=== PATIENT | male | born 1935 | race Caucasian/White ===

== ENCOUNTER 2018-03-13 13:47 | Inpatient (IN) | payer MEDICARE, OTHER ==
[~2018-03-13] VITALS: Ht 162.6 cm; Wt 78.2 kg
[~2018-03-13 13:47] MED LIST: ACET325T33 PO; ALLO300T2 PO; ASC500 PO; ASPI-535 PO; ASPI325T29 PO; ATOR20TA38 PO; CARV12.579 PO; CARV12.598 PO; CLOP75TA27 PO; DOCU-144 PO; FURO-110 PO; FURO40TA4 PO; LANT3I SC; LISI-523 PO; LOSA25TA2 PO; OMEG-157 PO; POTA10TA15 PO; ROSU10TA55 PO; TAMS-14 PO; TAMS0.4C2 PO; ZINC50TA51 PO; ZOLP5TAB PO
[2018-03-13 16:57] VITALS: Ht 162.6 cm; Wt 78.2 kg
[2018-03-13 17:33] VITALS: BP 153/67; PULSE 70; RESP 18
[2018-03-13] MEDS ORDERED: ONDANSETRON 4 MG INJ IV PRN (19:00)
[2018-03-13] MEDS ORDERED: ACETAMINOPHEN 325 MG TAB PO PRN (19:00)
[2018-03-13 20:23] VITALS: BP 147/54; PULSE 64; RESP 20
[2018-03-13] MEDS: INSULIN ASPART [NOVOLOG] 3 ML PEN SC SCH (21:00)
[2018-03-13] MEDS: CEFTRIAXONE 1 GM/50 ML (PMX) 50 ML IVPB SCH (22:07)
[2018-03-13] MEDS: DEXTROSE 5%-0.45% NACL 1,000 ML IV SCH (22:07)
[2018-03-13] MEDS: metroNIDAZOLE 500 MG/NS (PMX) 100 ML IVPB SCH (23:19)
--- NOTE | 2018-03-13 23:34 | HP ---
Date/Time of Note Date/Time of Note DATE: 03/13/18 TIME: 23:28 Assessment/Plan VTE Prophylaxis Risk [place] [facility] [place] risk: 5 SCD applied (from Ns): Yes SCD contraindicated: other Pharmacological prophylaxis: other Lines/Catheters IV Catheter Type (from [facility]): Saline Lock Assessment/Plan Hospital Course 1. abd pain 2. diverticulites 3. hx cancer on chemo gi 4. History of hypertension. 5. History of dyslipidemia. 6. History of coronary artery bypass graft. 7. History of aortic stenosis. 8. History of mitral valve repair. 9. Osteoarthritis. 10. Diabetes mellitus. 11. BPH. plan iv fluid and antibiotic Results 24hrs Laboratory Tests Test 03/13/18 21:43 Bedside Glucose 84 HPI/ROS Admit Date/Time Admit Date/Time Mar 13, 2018 at 15:43 Hx of Present Illness tranfered from [facility] w abd pain ROS Subjective hx not possible: other Constitutional: no complaints; No diaphoresis ENT: no complaints Respiratory: no complaints Cardiovascular: no complaints Gastrointestinal: pain (+) Genitourinary: no complaints Musculoskeletal: no complaints Skin: no complaints Neurologic: no complaints Endocrine: no complaints Lymphatic: no complaints PMH/Family/Social Past Medical History Medical History: cancer, coronary artery disease, diverticulitis, high chol esterol, hypertension, other Medications Current Medications Dextrose/Sodium Chloride 1,000 ml @ 75 mls/hr [id number] IV Last administered on 03/13/18at 22:07; Admin Dose 75 MLS/HR; Start 03/13/18 at 19:00 Pantoprazole (Protonix Iv) 40 mg DAILY@06 IV ; Start 03/14/18 at 06:00 Ceftriaxone Sodium 50 ml @ 100 mls/hr Q24H IVPB Last administered on 03/13/18at 22:07; Admin Dose 100 MLS/HR; Start 03/13/18 at 19:30 Ondansetron HCl (Zofran Inj) 4 mg Q6H PRN IV NAUSEA AND/OR VOMITING; Start 03/13/18 at 19:00 Acetaminophen (Tylenol Tab) 650 mg Q6H PRN PO MILD PAIN(1-3)OR ELEVATED TEMP; Start 03/13/18 at 19:00 Metronidazole 100 ml @ 100 mls/hr Q8 IVPB Last administered on 03/13/18at 23:19; Admin Dose 100 MLS/HR; Start 03/13/18 at 22:00 Diagnostic Test (Pha) (Accu-Chek) 1 02 XX ; Start 03/14/18 at 02:00 Insulin Aspart (Novolog Insulin Pen) NOVOLOG *MILD* ALGORI... Q4 SC ; Start 03/13/18 at 21:00 Coded Allergies: No Known Allergies (Verified Allergy, Unknown, 05/20/15) Uncoded Allergies: NKDA (Allergy, Unknown, 09/24/13) Family History Significant Family History: no pertinent family hx Social History Alcohol Use: none Smoking Status: Never smoker Exam/Review of Systems Vital Signs Vitals Vital Signs Date Temp Pulse Resp B/P (MAP) Pulse Ox O2 O2 Flow FiO2 Time Delivery Rate 03/13/18 98.4 64 20 147/54 99 Room Air 20:23 (85) Exam Constitutional: alert, oriented Head: normocephalic Eyes: nl conjunctiva, EOMI ENMT: nl external ears & nose Neck: supple Respiratory: clear to auscultation Cardiovascular: regular rate and rhythm Gastrointestinal: soft, bowel sounds (_) Genitourinary - Male: No CVA tenderness Musculoskeletal: nl extremities to inspection Extremities: No edema Neurological: CHOKER HOOKER II-XII intact, nl mental status SMITH MATSON MD Mar 13, 2018 23:34
[2018-03-14] MEDS: INSULIN ASPART [NOVOLOG] 3 ML PEN SC SCH ×6 (01:00→21:00)
[2018-03-14] MEDS: ACCU-CHEK XX SCH (02:00)
[2018-03-14 02:11] VITALS: BP 165/71; PULSE 71; RESP 18
[2018-03-14] MEDS: metroNIDAZOLE 500 MG/NS (PMX) 100 ML IVPB SCH ×3 (06:08→21:53)
[2018-03-14] MEDS: PANTOPRAZOLE 40 MG INJ IV SCH (06:08)
[2018-03-14 07:55] VITALS: BP 132/60; PULSE 63; RESP 18
[2018-03-14] MEDS: DEXTROSE 5%-0.45% NACL 1,000 ML IV SCH ×2 (08:20→17:14)
--- NOTE | 2018-03-14 14:39 | CONS ---
Date/Time of Note Date/Time of Note DATE: 03/14/18 TIME: 14:35 Assessment/Plan Assessment/Plan Hospital Course Summary Assessment and Plan: Assessment: Diverticulitis Abdominal pain 2/2 to above Colon cancer- per family dx 8 months -Currently on chemotherapy Hepatic lesion 1.1cm, worrisome for metastatic lesion on imaging DM Hypertension CAD Aortic stenosis History of MVR Osteoarthritis BPH Plan: NPO- today- if symptoms improve start clear liqui tin am- per patient she states patient only drink warm liquids IVF Pain management Continue ABX regimen Obtain records from patient oncologist- nicole GILES pending Patient seen in collaboration with Dr. Laguerre Result Diagram: 03/14/18 0444 03/14/18 0445 Results 24hrs Laboratory Tests Test 03/13/18 21:43 03/14/18 01:30 03/14/18 04:44 03/14/18 04:45 Bedside Glucose 84 92 White Blood Count 8.7 Red Blood Count 3.13 L Hemoglobin 10.0 L Hematocrit 30.8 L Mean Corpuscular 98.4 Volume Mean Corpuscular 31.9 Hemoglobin Mean Corpuscular 32.5 Hemoglobin Concent Red Cell 15.9 H Distribution Width Platelet Count 218 Mean Platelet Volume 8.7 # Immature 0.200 Granulocytes % Neutrophils % 63.6 Lymphocytes % 24.0 Monocytes % 9.3 Eosinophils % 2.3 Basophils % 0.6 Nucleated Red Blood 0.0 Cells % Immature 0.020 Granulocytes # Neutrophils # 5.5 Lymphocytes # 2.1 Monocytes # 0.8 Eosinophils # 0.2 Basophils # 0.1 Nucleated Red Blood 0.0 Cells # Sodium Level 142 Potassium Level 3.7 Chloride Level 118 H Carbon Dioxide Level 17 L Anion Gap 7 Blood Urea Nitrogen 22 H Creatinine 1.59 H Est Glomerular Filtrat Rate mL/min Glucose Level 104 Calcium Level 8.5 Total Bilirubin 0.0 L Direct Bilirubin 0.00 Indirect Bilirubin 0.0 Aspartate Amino 19 Transf (AST/SGOT) Alanine 12 L Aminotransferase (AL T/SGPT) Alkaline Phosphatase 45 Total Protein 5.7 L Albumin 2.8 L Globulin 2.90 Albumin/Globulin 0.96 Ratio Test 03/14/18 06:07 03/14/18 09:07 03/14/18 13:18 Bedside Glucose 99 103 102 CC: JEROME LAGUERRE MD ; Consultation Date/Type/Reason Admit Date/Time Mar 13, 2018 at 15:43 Date of Consultation: Mar 14, 2018 Type of Consult GI Reason for Consultation Abdominal pain Hx of Present Illness This an 82-year-old male with past medical history of hypertension, hyperlipidemia, CAD, valvular heart disease, inguinal hernia, CVA in 2016, colon cancer currently under the care of a oncologist and undergoing chemotherapy treatment. He is supposed to have chemotherapy every 2 weeks. scented to [facility] for worsening abdominal pain over the past 2- 3 days she was apparently having frequent diarrhea with poor intake. A CT abdomen/pelvis without contrast was obtained showing stable diverticulitis of the descending and sigmoid colon with no adjacent abscess or perforation, focal segment of sequential wall thickening demonstrates the distal ascending colon measuring approximately 1.9 x 1.2 cm worrisome for neoplastic process versus scarring causing partial obstructive changes and dilation of the cecum and distal ileum, small hiatal hernia, there is a 1.1 cm hyperdense lesion in the dome of the left liver is slightly larger compared to previous measurement of 0.9 worrisome for metastatic lesion, enlargement of prostate gland. Transferred to [facility] for insurance reasons. Of note patient was previously admitted at [facility] on 02/26/18 diagnosed with diverticulitis he also was noted to have a NSTEMI during that admission and he was discharged on 02/02/18. Has been consulted for further evaluation. Currently patient states he feels better less abdominal pain noted and diarrhea has improved. An order is currently placed in pending follow-up and progress notes from oncologist family is at bedside. He stated there was no plan for surgery and they are treating colon cancer currently with chemotherapy. Review of Systems: A 12 system, review was conducted and is negative except as noted in the HPI or here. Past Medical History Medical History: cancer, coronary artery disease, diverticulitis, high cholesterol, hypertension, other Medications Current Medications Dextrose/Sodium Chloride 1,000 ml @ 75 mls/hr [id number] IV Last administered on 03/13/18at 22:07; Admin Dose 75 MLS/HR; Start 03/13/18 at 19:00 Pantoprazole (Protonix Iv) 40 mg DAILY@06 IV Last administered on 03/14/18at 06:08; Admin Dose 40 MG; Start 03/14/18 at 06:00 Ceftriaxone Sodium 50 ml @ 100 mls/hr Q24H IVPB Last administered on 03/13/18at 22:07; Admin Dose 100 MLS/HR; Start 03/13/18 at 19:30 Ondansetron HCl (Zofran Inj) 4 mg Q6H PRN IV NAUSEA AND/OR VOMITING; Start 03/13/18 at 19:00 Acetaminophen (Tylenol Tab) 650 mg Q6H PRN PO MILD PAIN(1-3)OR ELEVATED TEMP; Start 03/13/18 at 19:00 Metronidazole 100 ml @ 100 mls/hr Q8 IVPB Last administered on 03/14/18at 13:20; Admin Dose 100 MLS/HR; Start 03/13/18 at 22:00 Diagnostic Test (Pha) (Accu-Chek) 1 ea 02 XX ; Start 03/14/18 at 02:00 Insulin Aspart (Novolog Insulin Pen) NOVOLOG *MILD* ALGORI... Q4 SC ; Start 03/13/18 at 21:00 Allergies: Coded Allergies: No Known Allergies (Verified Allergy, Unknown, 05/20/15) Uncoded Allergies: NKDA (Allergy, Unknown, 09/24/13) Social History Alcohol Use: none Smoking Status: Never smoker Exam/Review of Systems Vital Signs Vitals Vital Signs Date Temp Pulse Resp B/P (MAP) Pulse Ox O2 O2 Flow FiO2 Time Delivery Rate 03/14/18 98.0 63 18 132/60 99 Room Air 07:55 (84) Intake and Output 03/13/18 03/13/18 03/14/18 1414:59 22:59 06:59 IntakeIntake Total 50 ml 512 ml OutputOutput Total 1 ml BalanceBalance 50 ml 511 ml Exam PHYSICAL EXAMINATION: GENERAL: Alert & oriented x 3, in no acute distress SKIN: No lesions EYES: Pupils equal reactive to light no discharge. EARS/NOSE AND THROAT: Ears normal, nose normal, oropharynx normal NECK: Supple, no masses CHEST: Inspection within normal limits. CARDIOVASCULAR: Heart: Regular rate and rhythm RESPIRATORY: Lungs clear to auscultation GASTROINTESTINAL AND LIVER: Abdomen: Soft, lower abd pain non-distended, no hernias, no rebound tenderness, normoactive bowel sounds. Rectal: Deferred. GENITOURINARY: Male genitalia within normal limits. EXTREMITIES: No cyanosis, clubbing or edema. Medications Medications Current Medications Dextrose/Sodium Chloride 1,000 ml @ 75 mls/hr [id number] IV Last administered on 03/13/18at 22:07; Admin Dose 75 MLS/HR; Start 03/13/18 at 19:00 Pantoprazole (Protonix Iv) 40 mg DAILY@06 IV Last administered on 03/14/18at 06:08; Admin Dose 40 MG; Start 03/14/18 at 06:00 Ceftriaxone Sodium 50 ml @ 100 mls/hr Q24H IVPB Last administered on 03/13/18at 22:07; Admin Dose 100 MLS/HR; Start 03/13/18 at 19:30 Ondansetron HCl (Zofran Inj) 4 mg Q6H PRN IV NAUSEA AND/OR VOMITING; Start 03/13/18 at 19:00 Acetaminophen (Tylenol Tab) 650 mg Q6H PRN PO MILD PAIN(1-3)OR ELEVATED TEMP; Start 03/13/18 at 19:00 Metronidazole 100 ml @ 100 mls/hr Q8 IVPB Last administered on 03/14/18at 13:20; Admin Dose 100 MLS/HR; Start 03/13/18 at 22:00 Diagnostic Test (Pha) (Accu-Chek) 1 ea 02 XX ; Start 03/14/18 at 02:00 Insulin Aspart (Novolog Insulin Pen) NOVOLOG *MILD* ALGORI... Q4 SC ; Start 03/13/18 at 21:00 SILVINA XIAO Mar 14, 2018 14:39
--- NOTE | 2018-03-14 14:39 | PN ---
Date/Time of Note Date/Time of Note DATE: 03/14/18 TIME: 14:34 Assessment/Plan VTE Prophylaxis Risk score (from Ns)>0 risk: 5 SCD applied (from Ns): Yes Pharmacological prophylaxis: NA/contraindicated Pharm contraindication: low risk/ambulating Lines/Catheters IV [facility] Type (from [facility]): Peripheral IV Assessment/Plan Hospital Course 82 y/o with 1. abd pain with CT diverticulitis , partial obstruction on CT scan 2. diverticulites 3. hx cancer on chemo gi 4. History of hypertension. 5. History of dyslipidemia. 6. History of coronary artery bypass graft. 7. History of aortic stenosis. 8. History of mitral valve repair. 9. Osteoarthritis. 10. Diabetes mellitus. 11. BPH. 12 Diarrhoea ? chemo Plan - NPO - IV Fluids - iv abx with rocephin/flagyl - GI consult to determine - stool studies - Pt sees oncology at [facility] Result Diagram: 03/14/18 0444 03/14/18 0445 Results 24hrs Laboratory Tests Test 03/13/18 21:43 03/14/18 01:30 03/14/18 04:44 03/14/18 04:45 Bedside Glucose 84 92 White Blood Count 8.7 Red Blood Count 3.13 L Hemoglobin 10.0 L Hematocrit 30.8 L Mean Corpuscular 98.4 Volume Mean Corpuscular 31.9 Hemoglobin Mean Corpuscular 32.5 Hemoglobin Concent Red Cell 15.9 H Distribution Width Platelet Count 218 Mean Platelet Volume 8.7 # Immature 0.200 Granulocytes % Neutrophils % 63.6 Lymphocytes % 24.0 Monocytes % 9.3 Eosinophils % 2.3 Basophils % 0.6 Nucleated Red Blood 0.0 Cells % Immature 0.020 Granulocytes # Neutrophils # 5.5 Lymphocytes # 2.1 Monocytes # 0.8 Eosinophils # 0.2 Basophils # 0.1 Nucleated Red Blood 0.0 Cells # Sodium Level 142 Potassium Level 3.7 Chloride Level 118 H Carbon Dioxide Level 17 L Anion Gap 7 Blood Urea Nitrogen 22 H Creatinine 1.59 H Est Glomerular Filtrat Rate mL/min Glucose Level 104 Calcium Level 8.5 Total Bilirubin 0.0 L Direct Bilirubin 0.00 Indirect Bilirubin 0.0 Aspartate Amino 19 Transf (AST/SGOT) Alanine 12 L Aminotransferase (AL T/SGPT) Alkaline Phosphatase 45 Total Protein 5.7 L Albumin 2.8 L Globulin 2.90 Albumin/Globulin 0.96 Ratio Test 03/14/18 06:07 03/14/18 09:07 03/14/18 13:18 Bedside Glucose 99 103 102 Subjective 24 Hr Interval Summary Free Text/Dictation Pain in left iv site diarrhoea no vomting Exam/Review of Systems Vital Signs Vitals Vital Signs Date Temp Pulse Resp B/P (MAP) Pulse Ox O2 O2 Flow FiO2 Time Delivery Rate 03/14/18 98.0 63 18 132/60 99 Room Air 07:55 (84) Intake and Output 03/13/18 03/13/18 03/14/18 1515:00 23:00 07:00 IntakeIntake Total 50 ml 512 ml OutputOutput Total 1 ml BalanceBalance 50 ml 511 ml Exam onstitutional: alert, oriented Head: normocephalic Eyes: nl conjunctiva, EOMI ENMT: nl external ears & nose Neck: supple Respiratory: clear to auscultation Cardiovascular: regular rate and rhythm Gastrointestinal: soft, bowel sounds (_) Genitourinary - Male: No CVA tenderness Musculoskeletal: nl extremities to inspection Extremities: No edema Neurological: TABLE MACHINE OPERATOR II-XII intact, nl mental status Medications Medications Current Medications Dextrose/Sodium Chloride 1,000 ml @ 75 mls/hr [id number] IV Last administered on 03/13/18at 22:07; Admin Dose 75 MLS/HR; Start 03/13/18 at 19:00 Pantoprazole (Protonix Iv) 40 mg DAILY@06 IV Last administered on 03/14/18at 06:08; Admin Dose 40 MG; Start 03/14/18 at 06:00 Ceftriaxone Sodium 50 ml @ 100 mls/hr Q24H IVPB Last administered on 03/13/18at 22:07; Admin Dose 100 MLS/HR; Start 03/13/18 at 19:30 Ondansetron HCl (Zofran Inj) 4 mg Q6H PRN IV NAUSEA AND/OR VOMITING; Start 03/13/18 at 19:00 Acetaminophen (Tylenol Tab) 650 mg Q6H PRN PO MILD PAIN(1-3)OR ELEVATED TEMP; Start 03/13/18 at 19:00 Metronidazole 100 ml @ 100 mls/hr Q8 IVPB Last administered on 03/14/18at 13:20; Admin Dose 100 MLS/HR; Start 03/13/18 at 22:00 Diagnostic Test (Pha) (Accu-Chek) 1 02 XX ; Start 03/14/18 at 02:00 Insulin Aspart (Novolog Insulin Pen) NOVOLOG *MILD* ALGORI... Q4 SC ; Start 03/13/18 at 21:00 CARLOS ARTHUR MD Mar 14, 2018 14:38
[2018-03-14 15:13] VITALS: BP 161/66; PULSE 56; RESP 18
[2018-03-14 16:15] VITALS: BP 152/65
[2018-03-14 17:19] VITALS: BP 145/63; PULSE 55
[2018-03-14] MEDS: CEFTRIAXONE 1 GM/50 ML (PMX) 50 ML IVPB SCH (18:11)
[2018-03-14 20:00] VITALS: BP 137/62; PULSE 60; RESP 18
[2018-03-15] MEDS: INSULIN ASPART [NOVOLOG] 3 ML PEN SC SCH ×4 (01:00→12:43)
[2018-03-15] MEDS: ACCU-CHEK XX SCH (01:43)
[2018-03-15 02:00] VITALS: BP 137/61; PULSE 57; RESP 18
[2018-03-15] MEDS: metroNIDAZOLE 500 MG/NS (PMX) 100 ML IVPB SCH ×3 (06:08→21:53)
[2018-03-15] MEDS: DEXTROSE 5%-0.45% NACL 1,000 ML IV SCH ×2 (06:08→21:53)
[2018-03-15] MEDS: PANTOPRAZOLE 40 MG INJ IV SCH (06:08)
[2018-03-15 08:43] VITALS: BP 146/65; PULSE 51; RESP 19
--- NOTE | 2018-03-15 12:41 | PN ---
Date/Time of Note Date/Time of Note DATE: 03/15/18 TIME: 12:36 Assessment/Plan VTE Prophylaxis [place] [facility] [place]: 8 SCD applied [place] [facility] [place] Yes Pharmacological prophylaxis: NA/contraindicated Pharm contraindication: bleeding Lines/Catheters IV [facility] Type (from [facility]): Peripheral IV Assessment/Plan Hospital Course 1. abd pain with CT diverticulitis , partial obstruction on CT scan 2. diverticulitis. 3. hx cancer on chemo gi 4. History of hypertension. 5. History of dyslipidemia. 6. History of coronary artery bypass graft. 7. History of aortic stenosis. 8. History of mitral valve repair. 9. Osteoarthritis. 10. Diabetes mellitus. 11. BPH. 12 Diarrhoea C diff 13. Anemia 14. Overweight Assessment/Plan - clear liquid diet -start VAnco PO - IV Fluids - iv abx with rocephin/flagyl - GI consult appreciated - stool studies Result Diagram: 03/15/18 0605 03/14/18 0445 Results 24hrs Laboratory Tests Test 03/14/18 13:18 03/14/18 17:14 03/14/18 21:53 03/15/18 01:40 Bedside Glucose 102 87 98 95 Test 03/15/18 06:05 03/15/18 06:07 03/15/18 08:03 White Blood Count 7.7 Red Blood Count 3.05 L Hemoglobin 9.8 L Hematocrit 30.0 L Mean Corpuscular 98.4 Volume Mean Corpuscular 32.1 Hemoglobin Mean Corpuscular 32.7 Hemoglobin Concent Red Cell 15.9 H Distribution Width Platelet Count 203 Mean Platelet Volume 8.9 Immature 0.300 Granulocytes % Neutrophils % 52.0 Lymphocytes % 32.6 Monocytes % 10.4 Eosinophils % 3.9 Basophils % 0.8 Nucleated Red Blood 0.0 Cells % Immature 0.020 Granulocytes # Neutrophils # 4.0 Lymphocytes # 2.5 Monocytes # 0.8 Eosinophils # 0.3 Basophils # 0.1 Nucleated Red Blood 0.0 Cells # Bedside Glucose 96 96 Subjective 24 Hr Interval Summary Gastrointestinal: pain Exam/Review of Systems Vital Signs Vitals Vital Signs Date Temp Pulse Resp B/P (MAP) Pulse Ox O2 O2 Flow FiO2 Time Delivery Rate 03/15/18 97.9 51 19 146/65 97 08:43 (92) 03/14/18 Room Air 15:13 Intake and Output 1/10/19 1/10/19 1/11/19 1515:00 23:00 07:00 IntakeIntake Total 200 ml 738 ml 1000 ml OutputOutput Total 350 ml 300 ml BalanceBalance -150 ml 738 ml 700 ml Exam Constitutional: alert, oriented Head: normocephalic ENMT: nl external ears & nose Respiratory: clear to auscultation Cardiovascular: regular rate and rhythm Gastrointestinal: soft Genitourinary - Male: CVA tenderness; No nl penis, No nl scrotum, No discharge, No other Medications Medications Current Medications Dextrose/Sodium Chloride 1,000 ml @ 75 mls/hr [id number] IV Last administered on 03/15/18at 06:08; Admin Dose 75 MLS/HR; Start 03/13/18 at 19:00 Pantoprazole (Protonix Iv) 40 mg DAILY@06 IV Last administered on 03/15/18at 06:08; Admin Dose 40 MG; Start 03/14/18 at 06:00 Ceftriaxone Sodium 50 ml @ 100 mls/hr Q24H IVPB Last administered on 03/14/18at 18:11; Admin Dose 100 MLS/HR; Start 03/13/18 at 19:30 Ondansetron HCl (Zofran Inj) 4 mg Q6H PRN IV NAUSEA AND/OR VOMITING; Start 03/13/18 at 19:00 Acetaminophen (Tylenol Tab) 650 mg Q6H PRN PO MILD PAIN(1-3)OR ELEVATED TEMP; Start 03/13/18 at 19:00 Metronidazole 100 ml @ 100 mls/hr Q8 IVPB Last administered on 03/15/18at 06:08; Admin Dose 100 MLS/HR; Start 03/13/18 at 22:00 Diagnostic Test (Pha) (Accu-Chek) 1 ea 02 XX ; Start 03/14/18 at 02:00 Insulin Aspart (Novolog Insulin Pen) NOVOLOG *MILD* ALGORI... Q4 SC ; Start 03/13/18 at 21:00 Hydralazine HCl (Apresoline) 5 mg Q8 PRN IV sbp>160; Start 03/14/18 at 16:30 GIO PURCELL Mar 15, 2018 12:40
[2018-03-15] MEDS ORDERED: VANCOMYCIN IV PER PHARMACY XX SCH (13:00)
[2018-03-15] MEDS ORDERED: GLUCOSE GEL 15 GRAM TUBE BUCCAL PRN (13:30)
[2018-03-15] MEDS ORDERED: DEXTROSE 50% 50 ML SYRINGE IV PRN ×2 (13:30)
[2018-03-15] MEDS ORDERED: GLUCAGON 1 MG INJ IM PRN (13:30)
[2018-03-15] MEDS ORDERED: GLUCOSE GEL 15 GRAM TUBE PO PRN ×2 (13:30)
[2018-03-15] MEDS: VANCOMYCIN HCL 250 MG/5ML POSYG PO SCH ×2 (14:21→18:57)
[2018-03-15 14:48] VITALS: BP 144/67; PULSE 54; RESP 18
--- NOTE | 2018-03-15 15:45 | PN ---
Date/Time of Note Date/Time of Note DATE: 03/15/18 TIME: 15:36 Assessment/Plan VTE Prophylaxis Risk score (from N[facility])>0 risk: 6 SCD applied (from [facility]): Yes SCD contraindicated: low risk/ambulating Pharmacological prophylaxis: heparin Lines/Catheters IV Catheter Type (from [facility]): Peripheral IV Assessment/Plan Assessment/Plan Assessment: Diverticulitis C. difficile colitis Abdominal pain 2/2 to above Colon cancer- per family dx 8 months -Currently on chemotherapy Hepatic lesion 1.1cm, worrisome for metastatic lesion on imaging DM Hypertension CAD Aortic stenosis History of MVR Osteoarthritis BPH Plan: Start clear liquid diet, advance as tolerated Pain management Vancomycin p.o. has been started for C. difficile treatment Oncology consult Patient seen in collaboration with Dr. Laguerre Subjective: Patient has been started on clear liquid diet. Denies abdominal pain, nausea or vomiting. He is tolerating clear liquid diet well. Will advance diet. CT of the abdomen done in [place] which shows acute diverticulitis with thickening of the distal ascending colon causing dilation of cecum and distal ileum - concern for neoplasm. Hypodense liver lesion increasing in size suggestive of metastatic disease. Follow-up with oncology. Continue treatment of diverticulitis and C. difficile. PHYSICAL EXAMINATION: GENERAL: Well developed, well nourished, alert & oriented x 3, in no acute distress SKIN: No lesions, no stigmata chronic liver disease, no evidence of bleeding d iathesis LYMPHATIC: No palpable lymphadenopathy. HEAD: Normocephalic, atraumatic, no tenderness. EYES: Pupils equal reactive to light and accommodation, full extraocular movements, sclera clear, non-icteric, no discharge. EARS/NOSE AND THROAT: Ears normal, nose normal, oropharynx normal, oral membra quincy well hydrated without lesions. NECK: Supple, no masses, thyroid normal, JVP within normal limits, carotids normal without bruits. CHEST: Inspection within normal limits. CARDIOVASCULAR: Heart: Regular rate and rhythm, no murmurs, gallops or rubs. Peripheral pulses present within normal limits, no cyanosis, clubbing or edemas. No pulsatile abdominal mass RESPIRATORY: Lungs clear to auscultation and percussion, no wheezing, no rubs GASTROINTESTINAL AND LIVER: Abdomen: Soft, obese, non tenderness, non-distended, no hernias, no masses, no organomegaly, no ascites, no guarding, no rebound tenderness, normoactive bowel sounds. Rectal: Deferred. GENITOURINARY: Male genitalia within normal limits. EXTREMITIES: No cyanosis, clubbing or edema. Result Diagram: 03/15/18 0605 03/14/18 0445 Results 24hrs Laboratory Tests Test 03/14/18 17:14 03/14/18 21:53 03/15/18 01:40 03/15/18 06:05 Bedside Glucose 87 98 95 White Blood Count 7.7 Red Blood Count 3.05 L Hemoglobin 9.8 L Hematocrit 30.0 L Mean Corpuscular 98.4 Volume Mean Corpuscular 32.1 Hemoglobin Mean Corpuscular 32.7 Hemoglobin Concent Red Cell 15.9 H Distribution Width Platelet Count 203 Mean Platelet Volume 8.9 Immature 0.300 Granulocytes % Neutrophils % 52.0 Lymphocytes % 32.6 Monocytes % 10.4 Eosinophils % 3.9 Basophils % 0.8 Nucleated Red Blood 0.0 Cells % Immature 0.020 Granulocytes # Neutrophils # 4.0 Lymphocytes # 2.5 Monocytes # 0.8 Eosinophils # 0.3 Basophils # 0.1 Nucleated Red Blood 0.0 Cells # Test 03/15/18 06:07 03/15/18 08:03 03/15/18 12:41 Bedside Glucose 96 96 99 CC: JEROME LAGUERRE MD ; Exam/Review of Systems Vital Signs Vitals Vital Signs Date Temp Pulse Resp B/P (MAP) Pulse Ox O2 O2 Flow FiO2 Time Delivery Rate 03/15/18 97.2 54 18 144/67 97 14:48 (92) 03/14/18 Room Air 15:13 Intake and Output 03/14/18 03/14/18 03/15/18 1515:00 23:00 07:00 IntakeIntake Total 200 ml 738 ml 1000 ml OutputOutput Total 350 ml 300 ml BalanceBalance -150 ml 738 ml 700 ml Medications Medications Current Medications Dextrose/Sodium Chloride 1,000 ml @ 75 mls/hr [id number] IV Last administered on 03/15/18at 06:08; Admin Dose 75 MLS/HR; Start 03/13/18 at 19:00 Pantoprazole (Protonix Iv) 40 mg DAILY@06 IV Last administered on 03/15/18at 06:08; Admin Dose 40 MG; Start 03/14/18 at 06:00 Ondansetron HCl (Zofran Inj) 4 mg Q6H PRN IV NAUSEA AND/OR VOMITING; Start 03/13/18 at 19:00 Acetaminophen (Tylenol Tab) 650 mg Q6H PRN PO MILD PAIN(1-3)OR ELEVATED TEMP; Start 03/13/18 at 19:00 Metronidazole 100 ml @ 100 mls/hr Q8 IVPB Last administered on 03/15/18at 14:14; Admin Dose 100 MLS/HR; Start 03/13/18 at 22:00 Hydralazine HCl (Apresoline) 5 mg Q8 PRN IV sbp>160; Start 03/14/18 at 16:30 Vancomycin HCl (Vancomycin Oral Syringe) 125 mg Q6 PO Last administered on 03/15/18at 14:21; Admin Dose 125 MG; Start 03/15/18 at 13:30 Miscellaneous Information 1 ea NOTE XX ; Start 03/15/18 at 13:30 Glucose (Glutose) 15 gm Q15M PRN PO DECREASED GLUCOSE; Start 03/15/18 at 13:30 Glucose (Glutose) 22.5 gm Q15M PRN PO DECREASED GLUCOSE; Start 03/15/18 at 13:30 Dextrose (D50w Syringe) 25 ml Q15M PRN IV DECREASED GLUCOSE; Start 03/15/18 at 13:30 Dextrose (D50w Syringe) 50 ml Q15M PRN IV DECREASED GLUCOSE; Start 03/15/18 at 13:30 Glucagon (Glucagen) 1 mg Q15M PRN IM DECREASED GLUCOSE; Start 03/15/18 at 13:30 Glucose (Glutose) 15 gm Q15M PRN BUCCAL DECREASED GLUCOSE; Start 03/15/18 at 13:30 Insulin Aspart (Novolog Insulin Pen) (Adult SC Insulin - Mild Algorithm)... AC MEALS AND BEDTIME SC ; Start 03/15/18 at 17:35 Diagnostic Test (Pha) (Accu-Chek) 1 ea 02 XX ; Start 03/16/18 at 02:00 TIAGO WANG NP Mar 15, 2018 15:45
[2018-03-15] MEDS: Insulin NOVOLOG SS MILD Algorithm (SS with meals and bedtime) SC SCH ×2 (17:10→20:06)
[2018-03-15] MEDS ORDERED: INSULIN ASPART [NOVOLOG] 3 ML PEN SC SCH (17:35)
[2018-03-15 20:45] VITALS: BP 142/67; PULSE 56; RESP 20
[2018-03-16] MEDS: VANCOMYCIN HCL 250 MG/5ML POSYG PO SCH ×5 (00:14→23:32)
[2018-03-16] MEDS: ACCUCHECK AT 2AM (Patients on SS coverage) XX SCH (02:00)
[2018-03-16 02:12] VITALS: BP 162/71; PULSE 58; RESP 18
[2018-03-16] MEDS: metroNIDAZOLE 500 MG/NS (PMX) 100 ML IVPB SCH ×3 (05:28→22:21)
[2018-03-16] MEDS: PANTOPRAZOLE 40 MG INJ IV SCH (05:28)
[2018-03-16] MEDS: Insulin NOVOLOG SS MILD Algorithm (SS with meals and bedtime) SC SCH ×4 (07:30→20:56)
[2018-03-16 08:00] VITALS: BP 151/64; PULSE 86; RESP 18
--- NOTE | 2018-03-16 12:16 | PN ---
Date/Time of Note Date/Time of Note DATE: 03/16/18 TIME: 12:00 Assessment/Plan VTE Prophylaxis Risk score (from Ns)>0 risk: 3 SCD applied (from Nsg): Yes Pharmacological prophylaxis: heparin Lines/Catheters IV [facility]from [facility] Peripheral IV Assessment/Plan Assessment/Plan Assessment: Diverticulitis C. difficile colitis Abdominal pain 2/2 to above Colon cancer- per family dx 8 months -Currently on chemotherapy Hepatic lesion 1.1cm, worrisome for metastatic lesion on imaging DM Hypertension CAD Aortic stenosis History of MVR Osteoarthritis BPH Plan: Soft diet - tolerating well Continue Flagyl Vancomycin p.o. for C. difficile Oncology f/u Patient seen in collaboration with Dr. Laguerre Subjective: Patient is feeling well. Tolerating soft diet. Denies abdominal pain, nausea or vomiting. Pt had 2 watery BM's today. CT of the abdomen done in [place] which shows acute diverticulitis with thickening of the distal ascending colon causing dilation of cecum and distal ileum - concern for neoplasm. Hypodense liver lesion increasing in size suggestive of metastatic disease. Follow-up with oncology. Continue treatment of diverticulitis and C. difficile. PHYSICAL EXAMINATION: GENERAL: Well developed, well nourished, alert & oriented x 3, in no acute distress SKIN: No lesions, no stigmata chronic liver disease, no evidence of bleeding diathesis LYMPHATIC: No palpable lymphadenopathy. HEAD: Normocephalic, atraumatic, no tenderness. EYES: Pupils equal reactive to light and accommodation, full extraocular movements, sclera clear, non-icteric, no discharge. EARS/NOSE AND THROAT: Ears normal, nose normal, oropharynx normal, oral membranes well hydrated without lesions. NECK: Supple, no masses, thyroid normal, JVP within normal limits, carotids normal without bruits. CHEST: Inspection within normal limits. CARDIOVASCULAR: Heart: Regular rate and rhythm, no murmurs, gallops or rubs. Peripheral pulses present within normal limits, no cyanosis, clubbing or edemas. No pulsatile abdominal mass RESPIRATORY: Lungs clear to auscultation and percussion, no wheezing, no rubs GASTROINTESTINAL AND LIVER: Abdomen: Soft, obese, non tenderness, non-distended, no hernias, no masses, no organomegaly, no ascites, no guarding, no rebound tenderness, normoactive bowel sounds. Rectal: Deferred. GENITOURINARY: Male genitalia within normal limits. EXTREMITIES: No cyanosis, clubbing or edema. Result Diagram: 03/16/18 0425 03/16/18 042 Results 24hrs Laboratory Tests Test 03/15/18 12:41 03/15/18 17:10 03/15/18 20:04 03/16/18 04:25 Bedside Glucose 99 90 130 White Blood Count 7.4 Red Blood Count 3.18 L Hemoglobin 10.2 L Hematocrit 31.5 L Mean Corpuscular 99.1 Volume Mean Corpuscular 32.1 Hemoglobin Mean Corpuscular 32.4 Hemoglobin Concent Red Cell 15.8 H Distribution Width Platelet Count 202 Mean Platelet Volume 8.9 Immature 0.300 Granulocytes % Neutrophils % 54.5 Lymphocytes % 28.4 Monocytes % 11.0 Eosinophils % 5.0 Basophils % 0.8 Nucleated Red Blood 0.0 Cells % Immature 0.020 Granulocytes # Neutrophils # 4.0 Lymphocytes # 2.1 Monocytes # 0.8 Eosinophils # 0.4 Basophils # 0.1 Nucleated Red Blood 0.0 Cells # Sodium Level 141 Potassium Level 3.7 Chloride Level 118 H Carbon Dioxide Level 17 L Anion Gap 6 Blood Urea Nitrogen 18 Creatinine 1.66 H Est Glomerular Filtrat Rate mL/min Glucose Level 97 Hemoglobin A1c 5.5 Calcium Level 8.3 L Test 03/16/18 08:07 Bedside Glucose 107 CC: JEROME LAGUERRE MD ; Exam/Review of Systems Vital Signs Vitals Vital Signs Date Temp Pulse Resp B/P (MAP) Pulse Ox O2 O2 Flow FiO2 Time Delivery Rate 03/16/18 98.8 86 18 151/64 96 08:00 (93) 03/14/18 Room Air 15:13 Intake and Output 03/15/18 03/15/18 03/16/18 1515:00 23:00 07:00 IntakeIntake Total 340 ml 1440 ml 875 ml OutputOutput Total 100 ml 602 ml 2 ml BalanceBalance 240 ml 838 ml 873 ml Medications Medications Current Medications Dextrose/Sodium Chloride 1,000 ml @ 75 mls/hr [id number] IV Last administered on 03/15/18at 21:53; Admin Dose 75 MLS/HR; Start 03/13/18 at 19:00 Pantoprazole (Protonix Iv) 40 mg DAILY@06 IV Last administered on 03/16/18at 05:28; Admin Dose 40 MG; Start 03/14/18 at 06:00 Ondansetron HCl (Zofran Inj) 4 mg Q6H PRN IV NAUSEA AND/OR VOMITING; Start 03/13/18 at 19:00 Acetaminophen (Tylenol Tab) 650 mg Q6H PRN PO MILD PAIN(1-3)OR ELEVATED TEMP; Start 03/13/18 at 19:00 Metronidazole 100 ml @ 100 mls/hr Q8 IVPB Last administered on 03/16/18at 05:28; Admin Dose 100 MLS/HR; Start 03/13/18 at 22:00 Hydralazine HCl (Apresoline) 5 mg Q8 PRN IV sbp>160; Start 03/14/18 at 16:30 Vancomycin HCl (Vancomycin Oral Syringe) 125 mg Q6 PO Last administered on 03/16/18at 05:28; Admin Dose 125 MG; Start 03/15/18 at 13:30 Miscellaneous Information 1 ea NOTE XX ; Start 03/15/18 at 13:30 Glucose (Glutose) 15 gm Q15M PRN PO DECREASED GLUCOSE; Start 03/15/18 at 13:30 Glucose (Glutose) 22.5 gm Q15M PRN PO DECREASED GLUCOSE; Start 03/15/18 at 13:30 Dextrose (D50w Syringe) 25 ml Q15M PRN IV DECREASED GLUCOSE; Start 03/15/18 at 13:30 Dextrose (D50w Syringe) 50 ml Q15M PRN IV DECREASED GLUCOSE; Start 03/15/18 at 13:30 Glucagon (Glucagen) 1 mg Q15M PRN IM DECREASED GLUCOSE; Start 03/15/18 at 13:30 Glucose (Glutose) 15 gm Q15M PRN BUCCAL DECREASED GLUCOSE; Start 03/15/18 at 13:30 Insulin Aspart (Novolog Insulin Pen) (Adult SC Insulin - Mild Algorithm)... AC MEALS AND BEDTIME SC ; Start 03/15/18 at 17:35 Diagnostic Test (Pha) (Accu-Chek) 1 ea 02 XX ; Start 03/16/18 at 02:00 TIAGO WANG NP Mar 16, 2018 12:15
[2018-03-16 14:00] VITALS: BP 160/67; PULSE 76; RESP 18
--- NOTE | 2018-03-16 14:25 | PN ---
Date/Time of Note Date/Time of Note DATE: 03/16/18 TIME: 14:24 Assessment/Plan VTE Prophylaxis [place] [facility] [place]: 3 [place]CD [place] [facility] [place] Yes SCD contraindicated: low risk/ambulating Pharmacological prophylaxis: NA/contraindicated Pharm contraindication: bleeding Lines/Catheters IV Catheter Type (from [facility]): Peripheral IV Assessment/Plan Hospital Course 1. abd pain with CT diverticulitis , partial obstruction on CT scan 2. diverticulitis. 3. hx cancer on chemo gi 4. History of hypertension. 5. History of dyslipidemia. 6. History of coronary artery bypass graft. 7. History of aortic stenosis. 8. History of mitral valve repair. 9. Osteoarthritis. 10. Diabetes mellitus. 11. BPH. 12 Diarrhoea C diff 13. Anemia 14. Overweight Assessment/Plan - soft diet -restart home meds -c/w VAnco PO - stop IV Fluids - iv abx with rocephin/flagyl - GI consult appreciated - stool studies Result Diagram: 03/16/18 0425 03/16/18 0425 Results 24hrs Laboratory Tests Test 03/15/18 17:10 03/15/18 20:04 03/16/18 04:25 03/16/18 08:07 Bedside Glucose 90 130 107 White Blood Count 7.4 Red Blood Count 3.18 L Hemoglobin 10.2 L Hematocrit 31.5 L Mean Corpuscular 99.1 Volume Mean Corpuscular 32.1 Hemoglobin Mean Corpuscular 32.4 Hemoglobin Concent Red Cell 15.8 H Distribution Width Platelet Count 202 Mean Platelet Volume 8.9 Immature 0.300 Granulocytes % Neutrophils % 54.5 Lymphocytes % 28.4 Monocytes % 11.0 Eosinophils % 5.0 Basophils % 0.8 Nucleated Red Blood 0.0 Cells % Immature 0.020 Granulocytes # Neutrophils # 4.0 Lymphocytes # 2.1 Monocytes # 0.8 Eosinophils # 0.4 Basophils # 0.1 Nucleated Red Blood 0.0 Cells # Sodium Level 141 Potassium Level 3.7 Chloride Level 118 H Carbon Dioxide Level 17 L Anion Gap 6 Blood Urea Nitrogen 18 Creatinine 1.66 H Est Glomerular Filtrat Rate mL/min Glucose Level 97 Hemoglobin A1c 5.5 Calcium Level 8.3 L Test 03/16/18 12:03 Bedside Glucose 123 Subjective 24 Hr Interval Summary Free Text/Dictation stool 2 times Constitutional: no complaints, improved Cardiovascular: no complaints Exam/Review of Systems Vital Signs Vitals Vital Signs Date Temp Pulse Resp B/P (MAP) Pulse Ox O2 O2 Flow FiO2 Time Delivery Rate 03/16/18 98.8 86 18 151/64 96 08:00 (93) 03/14/18 Room Air 15:13 Intake and Output 03/15/18 03/15/18 03/16/18 1515:00 23:00 07:00 IntakeIntake Total 340 ml 1440 ml 875 ml OutputOutput Total 100 ml 602 ml 2 ml BalanceBalance 240 ml 838 ml 873 ml Exam Constitutional: alert, oriented Head: normocephalic Respiratory: clear to auscultation Cardiovascular: regular rate and rhythm Gastrointestinal: soft Medications Medications Current Medications Dextrose/Sodium Chloride 1,000 ml @ 75 mls/hr [id number] IV Last administered on 03/15/18at 21:53; Admin Dose 75 MLS/HR; Start 03/13/18 at 19:00 Pantoprazole (Protonix Iv) 40 mg DAILY@06 IV Last administered on 03/16/18at 05:28; Admin Dose 40 MG; Start 03/14/18 at 06:00 Ondansetron HCl (Zofran Inj) 4 mg Q6H PRN IV NAUSEA AND/OR VOMITING; Start 03/13/18 at 19:00 Acetaminophen (Tylenol Tab) 650 mg Q6H PRN PO MILD PAIN(1-3)OR ELEVATED TEMP; Start 03/13/18 at 19:00 Metronidazole 100 ml @ 100 mls/hr Q8 IVPB Last administered on 03/16/18at 05:28; Admin Dose 100 MLS/HR; Start 03/13/18 at 22:00 Hydralazine HCl (Apresoline) 5 mg Q8 PRN IV sbp>160; Start 03/14/18 at 16:30 Vancomycin HCl (Vancomycin Oral Syringe) 125 mg Q6 PO Last administered on 03/16/18at 11:59; Admin Dose 125 MG; Start 03/15/18 at 13:30 Miscellaneous Information 1 ea NOTE XX ; Start 03/15/18 at 13:30 Glucose (Glutose) 15 gm Q15M PRN PO DECREASED GLUCOSE; Start 03/15/18 at 13:30 Glucose (Glutose) 22.5 gm Q15M PRN PO DECREASED GLUCOSE; Start 03/15/18 at 13:30 Dextrose (D50w Syringe) 25 ml Q15M PRN IV DECREASED GLUCOSE; Start 03/15/18 at 13:30 Dextrose (D50w Syringe) 50 ml Q15M PRN IV DECREASED GLUCOSE; Start 03/15/18 at 13:30 Glucagon (Glucagen) 1 mg Q15M PRN IM DECREASED GLUCOSE; Start 03/15/18 at 13:30 Glucose (Glutose) 15 gm Q15M PRN BUCCAL DECREASED GLUCOSE; Start 03/15/18 at 13:30 Insulin Aspart (Novolog Insulin Pen) (Adult SC Insulin - Mild Algorithm)... AC MEALS AND BEDTIME SC ; Start 03/15/18 at 17:35 Diagnostic Test (Pha) (Accu-Chek) 1 ea 02 XX ; Start 03/16/18 at 02:00 GIO PURCELL Mar 16, 2018 14:25
[2018-03-16] MEDS: ASPIRIN (EC) 81 MG TAB PO SCH (14:52)
[2018-03-16] MEDS: CLOPIDOGREL 75 MG TAB PO SCH (14:52)
[2018-03-16] MEDS: AMLODIPINE 5 MG TAB PO SCH (14:53)
[2018-03-16 15:52] VITALS: BP 148/62; PULSE 78
--- NOTE | 2018-03-16 16:20 | CONS ---
DATE OF ADMISSION: 03/13/2018 DATE OF CONSULTATION: 03/16/2018 REASON FOR EVALUATION: Advanced colon cancer. HISTORY OF PRESENT ILLNESS: This is an 82-year-old Vietnamese gentleman with history of diabetes, hyper tension, coronary artery disease, aortic stenosis, history of MVR (mitral valve replacement), with BP H also was diagnosed with a colon cancer on systemic chemotherapy over the past 8 months with probabl e hepatic lesion. Patient admitted to [facility] because of generalized weakness, fatigue, abdominal pain, diarrhea, found to have diverticulitis/diverticulosis with a positive C. dif f diarrhea. No active bleeding at this time. No hematemesis, no melena. No active rectal bleed. C BC stable hemoglobin over 10, hematocrit 30. C. difficile positive in isolation, getting vancomycin antibiotics per ID protocol. Currently, doing better. No chest pain, no abdominal pain. Denies any major complaints. Started to have some soft p.o. intake, IV fluids. No headache, no blurred vision . No active bleeding. PAST MEDICAL HISTORY: 1. Diabetes. 2. Hypertension. 3. Coronary artery disease. 4. MVR. 5. Osteoarthritis. 6. BPH. PHYSICAL EXAMINATION: VITAL SIGNS: Temperature 97, respirations 18, pulse of 82, BP 130/65. NECK: No supraclavicular nodes. No axillary nodes. CHEST: Lungs are clear. HEART: Normal S1, S2. ABDOMEN: Distended. Bowel sounds sluggish. LABORATORY DATA: White cell count 8.7, hemoglobin 10, hematocrit of 30, platelets 218. BUN 22, crea tinine 1.5. ASSESSMENT AND PLAN: 1. An 82-year-old gentleman with multiple medical problems, cardiovascular heart disease, diabetes a nd hypertension with valvular heart disease. 2. Colon cancer, advanced, on systemic chemotherapy. 3. For now, no chemotherapy for the time being until current acute problems resolved. 4. Clostridium difficile colitis. Continue antibiotics per protocol per ID, GI protocol. 5. Diet for GI advance gradually to normal diet, was tolerating it, still 5 times diarrhea day. Fev ers resolved at this time. 6. Supportive care, comfort measures for now. No active chemotherapy needed until sepsis infection, colitis and diarrhea all resolved. Dictated By: MICHAEL LIANG Conf#: [id number] DID#: [id number] CC: SMITH MATSON MD;*EndCC*
[2018-03-16] MEDS ORDERED: TAMSULOSIN (SR) 0.4 MG CAP PO ONE (19:46)
[2018-03-16 20:10] VITALS: BP 161/71; PULSE 63; RESP 18
[2018-03-16] MEDS: TAMSULOSIN (SR) 0.4 MG CAP PO SCH (20:53)
[2018-03-16] MEDS: hydrALAzine 20 MG INJ IV PRN (23:39)
[2018-03-17 02:00] VITALS: BP 138/63; PULSE 66; RESP 18
[2018-03-17] MEDS: ACCUCHECK AT 2AM (Patients on SS coverage) XX SCH (02:00)
[2018-03-17] MEDS: VANCOMYCIN HCL 250 MG/5ML POSYG PO SCH ×3 (06:02→17:21)
[2018-03-17] MEDS: metroNIDAZOLE 500 MG/NS (PMX) 100 ML IVPB SCH ×3 (06:02→20:23)
[2018-03-17] MEDS: PANTOPRAZOLE (EC) 40 MG TAB PO SCH (06:02)
[2018-03-17] MEDS: Insulin NOVOLOG SS MILD Algorithm (SS with meals and bedtime) SC SCH ×4 (07:30→20:23)
[2018-03-17 08:04] VITALS: BP 145/65; PULSE 57; RESP 17
[2018-03-17] MEDS: ASPIRIN (EC) 81 MG TAB PO SCH (08:59)
[2018-03-17] MEDS: CLOPIDOGREL 75 MG TAB PO SCH (09:00)
[2018-03-17] MEDS: AMLODIPINE 5 MG TAB PO SCH (09:00)
--- NOTE | 2018-03-17 11:31 | PN ---
Date/Time of Note Date/Time of Note DATE: 03/17/18 TIME: 11:25 Assessment/Plan VTE Prophylaxis Risk score (from Ns)>0 risk: 3 SCD applied (from Ns): Yes Pharmacological prophylaxis: heparin Lines/Catheters IV [facility]atheter Type (from [facility] Saline Lock Assessment/Plan Assessment/Plan Assessment: Diverticulitis C. difficile colitis Abdominal pain 2/2 to above Colon cancer- per family dx 8 months -Currently on chemotherapy Hepatic lesion 1.1cm, worrisome for metastatic lesion on imaging DM Hypertension CAD Aortic stenosis History of MVR Osteoarthritis BPH Plan: Soft diet - tolerating well Continue Flagyl Vancomycin p.o. for C. difficile Oncology f/u Patient seen in collaboration with Dr. Laguerre Subjective: Patient is doing well. Diarrhea is improving. Patient had one bowel movement last night soft in consistency. Tolerating soft diet. Denies abdominal pain, nausea or vomiting. CT of the abdomen done in [place] which shows acute diverticulitis with thickening of the distal ascending colon causing dilation of cecum and distal ileum - concern for neoplasm. Hypodense liver lesion increasing in size suggestive of metastatic disease. Follow-up with oncology. Continue treatment of diverticulitis and C. difficile. PHYSICAL EXAMINATION: GENERAL: Well developed, well nourished, alert & oriented x 3, in no acute distress SKIN: No lesions, no stigmata chronic liver disease, no evidence of bleeding diathesis LYMPHATIC: No palpable lymphadenopathy. HEAD: Normocephalic, atraumatic, no tenderness. EYES: Pupils equal reactive to light and accommodation, full extraocular movements, sclera clear, non-icteric, no discharge. EARS/NOSE AND THROAT: Ears normal, nose normal, oropharynx normal, oral membranes well hydrated without lesions. NECK: Supple, no masses, thyroid normal, JVP within normal limits, carotids normal without bruits. CHEST: Inspection within normal limits. CARDIOVASCULAR: Heart: Regular rate and rhythm, no murmurs, gallops or rubs. Peripheral pulses present within normal limits, no cyanosis, clubbing or edemas. No pulsatile abdominal mass RESPIRATORY: Lungs clear to auscultation and percussion, no wheezing, no rubs GASTROINTESTINAL AND LIVER: Abdomen: Soft, obese, non tenderness, non-distended, no hernias, no masses, no organomegaly, no ascites, no guarding, no rebound tenderness, normoactive bowel sounds. Rectal: Deferred. GENITOURINARY: Male genitalia within normal limits. EXTREMITIES: No cyanosis, clubbing or edema. Result Diagram: 03/16/1842403/16/18 0425 Results 24hrs Laboratory Tests Test 03/16/18 12:03 03/16/18 17:17 03/16/18 20:49 03/17/18 08:08 Bedside Glucose 123 98 137 82 CC: JEROME LAGUERRE MD ; Exam/Review of Systems Vital Signs Vitals Vital Signs Date Temp Pulse Resp B/P (MAP) Pulse Ox O2 O2 Flow FiO2 Time Delivery Rate 03/17/18 98.0 57 17 145/65 99 08:04 (91) 03/14/18 Room Air 15:13 Intake and Output 03/16/18 03/16/18 03/17/18 1515:00 23:00 07:00 IntakeIntake Total 1065 ml 440 ml 240 ml OutputOutput Total 300 ml BalanceBalance 1065 ml 140 ml 240 ml Medications Medications Current Medications Ondansetron HCl (Zofran Inj) 4 mg Q6H PRN IV NAUSEA AND/OR VOMITING; Start 03/13/18 at 19:00 Acetaminophen (Tylenol Tab) 650 mg Q6H PRN PO MILD PAIN(1-3)OR ELEVATED TEMP; Start 03/13/18 at 19:00 Metronidazole 100 ml @ 100 mls/hr Q8 IVPB Last administered on 03/17/18at 06:02; Admin Dose 100 MLS/HR; Start 03/13/18 at 22:00 Hydralazine HCl (Apresoline) 5 mg Q8 PRN IV sbp>160 Last administered on 03/16/18at 23:39; Admin Dose 5 MG; Start 03/14/18 at 16:30 Vancomycin HCl (Vancomycin Oral Syringe) 125 mg Q6 PO Last administered on 03/17/18at 06:02; Admin Dose 125 MG; Start 03/15/18 at 13:30 Miscellaneous Information 1 ea NOTE XX ; Start 03/15/18 at 13:30 Glucose (Glutose) 15 gm Q15M PRN PO DECREASED GLUCOSE; Start 03/15/18 at 13:30 Glucose (Glutose) 22.5 gm Q15M PRN PO DECREASED GLUCOSE; Start 03/15/18 at 13:30 Dextrose (D50w Syringe) 25 ml Q15M PRN IV DECREASED GLUCOSE; Start 03/15/18 at 13:30 Dextrose (D50w Syringe) 50 ml Q15M PRN IV DECREASED GLUCOSE; Start 03/15/18 at 13:30 Glucagon (Glucagen) 1 mg Q15M PRN IM DECREASED GLUCOSE; Start 03/15/18 at 13:30 Glucose (Glutose) 15 gm Q15M PRN BUCCAL DECREASED GLUCOSE; Start 03/15/18 at 13:30 Insulin Aspart (Novolog Insulin Pen) (Adult SC Insulin - Mild Algorithm)... AC MEALS AND BEDTIME SC ; Start 03/15/18 at 17:35 Diagnostic Test (Pha) (Accu-Chek) 1 ea 02 XX ; Start 03/16/18 at 02:00 Aspirin (Halfprin) 81 mg DAILY PO Last administered on 03/17/18at 08:59; Admin Dose 81 MG; Start 03/16/18 at 14:30 Clopidogrel Bisulfate (plaVIX) 75 mg DAILY PO Last administered on 03/17/18at 09:00; Admin Dose 75 MG; Start 03/16/18 at 14:30 Tamsulosin HCl (Flomax) 0.4 mg HS PO Last administered on 03/16/18at 20:53; Admin Dose 0.4 MG; Start 03/16/18 at 21:00 Pantoprazole (Protonix Tab) 40 mg DAILY@06 PO Last administered on 03/17/18at 0 6:02; Admin Dose 40 MG; Start 03/17/18 at 06:00 Amlodipine Besylate (Norvasc) 5 mg DAILY PO Last administered on 03/17/18at 09:00; Admin Dose 5 MG; Start 03/16/18 at 15:00 TIAGO WANG NP Mar 17, 2018 11:31
--- NOTE | 2018-03-17 13:44 | PN ---
Date/Time of Note Date/Time of Note DATE: 03/17/18 TIME: 13:43 Assessment/Plan VTE Prophylaxis Risk score [place] [facility] [place]: 3 SCD applied (from [facility] [place] Yes SCD contraindicated: other Pharmacological prophylaxis: other Lines/Catheters IV Catheter Type (from [facility]): Saline Lock Assessment/Plan Hospital Course 1. abd pain with CT diverticulitis , 2. diverticulitis. 3. hx cancer on chemo gi 4. History of hypertension. 5. History of dyslipidemia. 6. History of coronary artery bypass graft. 7. History of aortic stenosis. 8. History of mitral valve repair. 9. Osteoarthritis. 10. Diabetes mellitus. 11. BPH. 12 Diarrhoea C diff 13. Anemia plan antibiotic Result Diagram: 03/16/1842403/16/18424 Results 24hrs Laboratory Tests Test 03/16/18 17:17 03/16/18 20:49 03/17/18 08:08 03/17/18 12:03 Bedside Glucose 98 137 82 133 Subjective 24 Hr Interval Summary Respiratory: no complaints Gastrointestinal: No diarrhea Exam/Review of Systems Vital Signs Vitals Vital Signs Date Temp Pulse Resp B/P (MAP) Pulse Ox O2 O2 Flow FiO2 Time Delivery Rate 03/17/18 98.0 57 17 145/65 99 08:04 (91) 03/14/18 Room Air 15:13 Intake and Output 03/16/18 03/16/18 03/17/18 1515:00 23:00 07:00 IntakeIntake Total 1065 ml 440 ml 240 ml OutputOutput Total 300 ml BalanceBalance 1065 ml 140 ml 240 ml Exam Respiratory: clear to auscultation Cardiovascular: regular rate and rhythm Gastrointestinal: soft Musculoskeletal: nl extremities to inspection Extremities: normal pulses Medications Medications Current Medications Ondansetron HCl (Zofran Inj) 4 mg Q6H PRN IV NAUSEA AND/OR VOMITING; Start 03/13/18 at 19:00 Acetaminophen (Tylenol Tab) 650 mg Q6H PRN PO MILD PAIN(1-3)OR ELEVATED TEMP; Start 03/13/18 at 19:00 Metronidazole 100 ml @ 100 mls/hr Q8 IVPB Last administered on 03/17/18at 13:28; Admin Dose 100 MLS/HR; Start 03/13/18 at 22:00 Hydralazine HCl (Apresoline) 5 mg Q8 PRN IV sbp>160 Last administered on 03/16/18at 23:39; Admin Dose 5 MG; Start 03/14/18 at 16:30 Vancomycin HCl (Vancomycin Oral Syringe) 125 mg Q6 PO Last administered on 03/17/18at 12:05; Admin Dose 125 MG; Start 03/15/18 at 13:30 Miscellaneous Information 1 ea NOTE XX ; Start 03/15/18 at 13:30 Glucose (Glutose) 15 gm Q15M PRN PO DECREASED GLUCOSE; Start 03/15/18 at 13:30 Glucose (Glutose) 22.5 gm Q15M PRN PO DECREASED GLUCOSE; Start 03/15/18 at 13:30 Dextrose (D50w Syringe) 25 ml Q15M PRN IV DECREASED GLUCOSE; Start 03/15/18 at 13:30 Dextrose (D50w Syringe) 50 ml Q15M PRN IV DECREASED GLUCOSE; Start 03/15/18 at 13:30 Glucagon (Glucagen) 1 mg Q15M PRN IM DECREASED GLUCOSE; Start 03/15/18 at 13:30 Glucose (Glutose) 15 gm Q15M PRN BUCCAL DECREASED GLUCOSE; Start 03/15/18 at 13:30 Insulin Aspart (Novolog Insulin Pen) (Adult SC Insulin - Mild Algorithm)... AC MEALS AND BEDTIME SC ; Start 03/15/18 at 17:35 Diagnostic Test (Pha) (Accu-Chek) 1 ea 02 XX ; Start 03/16/18 at 02:00 Aspirin (Halfprin) 81 mg DAILY PO Last administered on 03/17/18at 08:59; Admin Dose 81 MG; Start 03/16/18 at 14:30 Clopidogrel Bisulfate (plaVIX) 75 mg DAILY PO Last administered on 03/17/18at 09:00; Admin Dose 75 MG; Start 03/16/18 at 14:30 Tamsulosin HCl (Flomax) 0.4 mg HS PO Last administered on 03/16/18at 20:53; Admin Dose 0.4 MG; Start 03/16/18 at 21:00 Pantoprazole (Protonix Tab) 40 mg DAILY@06 PO Last administered on 03/17/18at 06:02; Admin Dose 40 MG; Start 03/17/18 at 06:00 Amlodipine Besylate (Norvasc) 5 mg DAILY PO Last administered on 03/17/18at 09:00; Admin Dose 5 MG; Start 03/16/18 at 15:00 SMITH MATSON MD Mar 17, 2018 13:44
[2018-03-17 14:52] VITALS: BP 136/61; PULSE 60; RESP 17
[2018-03-17] MEDS: ALBUTEROL 0.083% (NEB) 2.5 MG/3 ML AMP HHN SCH ×2 (15:00→21:03)
[2018-03-17 20:10] VITALS: BP 141/64; PULSE 61; RESP 18
[2018-03-17] MEDS: TAMSULOSIN (SR) 0.4 MG CAP PO SCH (20:22)
[2018-03-18] MEDS: VANCOMYCIN HCL 250 MG/5ML POSYG PO SCH ×4 (00:12→17:33)
[2018-03-18] MEDS: ACCUCHECK AT 2AM (Patients on SS coverage) XX SCH (01:19)
[2018-03-18] MEDS: ALBUTEROL 0.083% (NEB) 2.5 MG/3 ML AMP HHN SCH ×4 (01:29→19:48)
[2018-03-18 02:00] VITALS: BP 147/65; PULSE 62; RESP 18
[2018-03-18] MEDS: PANTOPRAZOLE (EC) 40 MG TAB PO SCH ×2 (05:10→17:33)
[2018-03-18] MEDS: metroNIDAZOLE 500 MG/NS (PMX) 100 ML IVPB SCH ×3 (05:10→22:00)
[2018-03-18] MEDS: Insulin NOVOLOG SS MILD Algorithm (SS with meals and bedtime) SC SCH ×4 (07:30→21:00)
[2018-03-18] MEDS: ASPIRIN (EC) 81 MG TAB PO SCH (08:25)
[2018-03-18] MEDS: AMLODIPINE 5 MG TAB PO SCH (08:26)
[2018-03-18] MEDS: CLOPIDOGREL 75 MG TAB PO SCH (08:26)
[2018-03-18 08:27] VITALS: BP 147/63; PULSE 62; RESP 17
--- NOTE | 2018-03-18 08:49 | CONS ---
Date/Time of Note Date/Time of Note DATE: 03/18/18 TIME: 08:45 Assessment/Plan Assessment/Plan Hospital Course #STAGE IV colon CA -pt currently under treatment with Dr. Vang -once the C diff resolves, pt can resume treatment #Cdiff -continue FLagyl -continue current diet #HTN -continue current hypertensive medications Result Diagram: 03/16/18 0425 03/18/18 0436 Results 24hrs Laboratory Tests Test 03/17/18 12:03 03/17/18 17:21 03/17/18 20:21 03/18/18 04:36 Bedside Glucose 133 113 115 Sodium Level 141 Potassium Level 3.8 Chloride Level 118 H Carbon Dioxide Level 15 L Anion Gap 8 Blood Urea Nitrogen 19 Creatinine 1.58 H Est Glomerular Filtrat Rate mL/min Glucose Level 83 Calcium Level 8.4 Total Bilirubin 0.0 L Direct Bilirubin 0.00 Indirect Bilirubin 0.0 Aspartate Amino 23 Transf (AST/SGOT) Alanine 20 Aminotransferase (AL T/SGPT) Alkaline Phosphatase 40 L Total Protein 5.5 L Albumin 2.7 L Globulin 2.80 Albumin/Globulin 0.96 Ratio Test 03/18/18 07:53 Bedside Glucose 96 Consultation Date/Type/Reason Admit Date/Time Mar 13, 2018 at 15:43 Initial Consult Date 03/14/18 Type of Consult oncology Reason for Consultation metastatic colon ca Requesting Provider: SMITH MATSON MD 24 HR Interval Summary Free Text/Dictation pt is eating this morning. continues on antibiotic. diarrhea improved Exam/Review of Systems Vital Signs Vitals Vital Signs Date Temp Pulse Resp B/P (MAP) Pulse Ox O2 O2 Flow FiO2 Time Delivery Rate 03/18/18 97.9 62 17 147/63 97 Room Air 08:27 (91) Intake and Output 03/17/18 03/17/18 03/18/18 1414:59 22:59 06:59 IntakeIntake Total 200 ml 100 ml 340 ml OutputOutput Total 250 ml BalanceBalance 200 ml -150 ml 340 ml Exam Constitutional: alert, oriented Psych: no complaints Head: normocephalic Eyes: nl conjunctiva ENMT: nl external ears & nose Neck: supple Respiratory: clear to auscultation Cardiovascular: regular rate and rhythm Gastrointestinal: soft Musculoskeletal: nl extremities to inspection Extremities: normal pulses Neurological: DICE MANAGER II-XII intact Medications Medications Current Medications Ondansetron HCl (Zofran Inj) 4 mg Q6H PRN IV NAUSEA AND/OR VOMITING; Start 03/13/18 at 19:00 Acetaminophen (Tylenol Tab) 650 mg Q6H PRN PO MILD PAIN(1-3)OR ELEVATED TEMP; Start 03/13/18 at 19:00 Metronidazole 100 ml @ 100 mls/hr Q8 IVPB Last administered on 03/18/18at 05:10; Admin Dose 100 MLS/HR; Start 03/13/18 at 22:00 Hydralazine HCl (Apresoline) 5 mg Q8 PRN IV sbp>160 Last administered on 03/16/18at 23:39; Admin Dose 5 MG; Start 03/14/18 at 16:30 Vancomycin HCl (Vancomycin Oral Syringe) 125 mg Q6 PO Last administered on 03/18/18at 05:10; Admin Dose 125 MG; Start 03/15/18 at 13:30 Miscellaneous Information 1 ea NOTE XX ; Start 03/15/18 at 13:30 Glucose (Glutose) 15 gm Q15M PRN PO DECREASED GLUCOSE; Start 03/15/18 at 13:30 Glucose (Glutose) 22.5 gm Q15M PRN PO DECREASED GLUCOSE; Start 03/15/18 at 13:30 Dextrose (D50w Syringe) 25 ml Q15M PRN IV DECREASED GLUCOSE; Start 03/15/18 at 13:30 Dextrose (D50w Syringe) 50 ml Q15M PRN IV DECREASED GLUCOSE; Start 03/15/18 at 13:30 Glucagon (Glucagen) 1 mg Q15M PRN IM DECREASED GLUCOSE; Start 03/15/18 at 13:30 Glucose (Glutose) 15 gm Q15M PRN BUCCAL DECREASED GLUCOSE; Start 03/15/18 at 13:30 Insulin Aspart (Novolog Insulin Pen) (Adult SC Insulin - Mild Algorithm)... AC MEALS AND BEDTIME SC ; Start 03/15/18 at 17:35 Diagnostic Test (Pha) (Accu-Chek) 1 ea 02 XX ; Start 03/16/18 at 02:00 Aspirin (Halfprin) 81 mg DAILY PO Last administered on 03/18/18at 08:25; Admin Dose 81 MG; Start 03/16/18 at 14:30 Clopidogrel Bisulfate (plaVIX) 75 mg DAILY PO Last administered on 03/18/18 08:26; Admin Dose 75 MG; Start 03/16/18 at 14:30 Tamsulosin HCl (Flomax) 0.4 mg HS PO Last administered on 03/17/18 20:22; Admin Dose 0.4 MG; Start 03/16/18 at 21:00 Pantoprazole (Protonix Tab) 40 mg DAILY@06 PO Last administered on 03/18/18 05:10; Admin Dose 40 MG; Start 03/17/18 at 06:00 Amlodipine Besylate (Norvasc) 5 mg DAILY PO Last administered on 03/18/18 08:26; Admin Dose 5 MG; Start 03/16/18 at 15:00 Albuterol (Proventil 0.083% (Neb)) 2.5 mg Q6H RESP THERAPY [facility] ; Start 03/17/18 at 15:00 JOHANNE AGRAWAL M.D. Mar 18, 2018 08:49
--- NOTE | 2018-03-18 13:26 | QN ---
Documentation Comment seen and improved tolerating diet 1 episode of BM DC HOME CARLOS ARTHUR MD Mar 18, 2018 13:26
--- NOTE | 2018-03-18 13:28 | PDOCDIS ---
Discharge Instructions DIAGNOSIS Discharge Diagnosis C DIFF COLITIS DIVERTICULTIIS COLON CANCER CONDITION [id number] Patient Condition: [id number] Fair HOME CARE INSTRUCTIONS: [id number] Special Diet: Oehvz9a Regular ACTIVITY: [id number] Activity Restrictions: Atzfo7s Slowly Increase Activity Rest between Activity Avoid heavy lifting FOLLOW UP/APPOINTMENTS Follow-up Plan F/u pcp in 1 week f/u Dr Vang in 1-2 weeks return to ER if has abdominal pain/diarrhoea/fevers/chills CARLOS ARTHUR MD Mar 18, 2018 13:28
[2018-03-18] MEDS ORDERED: Vancomycin Oral Syringe PO (13:31)
[2018-03-18] MEDS ORDERED: METR500T PO (13:31)
[2018-03-18] MEDS ORDERED: AMLO-145 PO (13:33)
--- NOTE | 2018-03-18 14:31 | PN ---
Date/Time of Note Date/Time of Note DATE: 03/18/18 TIME: 14:27 Assessment/Plan VTE Prophylaxis Risk score (from Ns)>0 risk: 3 SCD applied (from [facility] [place] No SCD contraindicated: low risk/ambulating Pharmacological prophylaxis: NA/contraindicated Pharm contraindication: bleeding Lines/Catheters [facility] (from [facility] Saline Lock Assessment/Plan Hospital Course 82 y/o with 1. abd pain with CT diverticulitis , partial obstruction on CT scan 2. diverticulites 3. hx cancer on chemo gi 4. History of hypertension. 5. History of dyslipidemia. 6. History of coronary artery bypass graft. 7. History of aortic stenosis. 8. History of mitral valve repair. 9. Osteoarthritis. 10. Diabetes mellitus. 11. BPH. 12 Diarrhoea ? chemo + C diff now with black stool> r/o GI bleed 13 SARA vs SARA on CKD 14 Non gap acidosis likley due to diarrhoea Plan - hold ASA/Plavix -recheck hb tonite - spoke to GI - cw PPI -- Cw Vancomycin/flagyl - f/u oncology as OPD post dc Result Diagram: 03/16/18 0425 03/18/18 0436 Results 24hrs Laboratory Tests Test 03/17/18 17:21 03/17/18 20:21 03/18/18 04:36 03/18/18 07:53 Bedside Glucose 113 115 96 Sodium Level 141 Potassium Level 3.8 Chloride Level 118 H Carbon Dioxide Level 15 L Anion Gap 8 Blood Urea Nitrogen 19 Creatinine 1.58 H Est Glomerular Filtrat Rate mL/min Glucose Level 83 Calcium Level 8.4 Total Bilirubin 0.0 L Direct Bilirubin 0.00 Indirect Bilirubin 0.0 Aspartate Amino 23 Transf (AST/SGOT) Alanine 20 Aminotransferase (AL T/SGPT) Alkaline Phosphatase 40 L Total Protein 5.5 L Albumin 2.7 L Globulin 2.80 Albumin/Globulin 0.96 Ratio Test 03/18/18 11:56 Bedside Glucose 122 Subjective 24 Hr Interval Summary Free Text/Dictation Pt only had 1 bm yesterday right before dc had big black stool Exam/Review of Systems Vital Signs Vitals Vital Signs Date Temp Pulse Resp B/P (MAP) Pulse Ox O2 O2 Flow FiO2 Time Delivery Rate 03/18/18 97.9 62 17 147/63 97 Room Air 08:27 (91) Intake and Output 03/17/18 03/17/18 03/18/18 1515:00 23:00 07:00 IntakeIntake Total 200 ml 100 ml 340 ml OutputOutput Total 250 ml BalanceBalance 200 ml -150 ml 340 ml Exam Respiratory: clear to auscultation Cardiovascular: regular rate and rhythm Gastrointestinal: soft Musculoskeletal: nl extremities to inspection Extremities: normal pulses Medications Medications Current Medications Ondansetron HCl (Zofran Inj) 4 mg Q6H PRN IV NAUSEA AND/OR VOMITING; Start 03/13/18 at 19:00 Acetaminophen (Tylenol Tab) 650 mg Q6H PRN PO MILD PAIN(1-3)OR ELEVATED TEMP; Start 03/13/18 at 19:00 Metronidazole 100 ml @ 100 mls/hr Q8 IVPB Last administered on 03/18/18at 13:50; Admin Dose 100 MLS/HR; Start 03/13/18 at 22:00 Hydralazine HCl (Apresoline) 5 mg Q8 PRN IV sbp>160 Last administered on 03/16/18at 23:39; Admin Dose 5 MG; Start 03/14/18 at 16:30 Vancomycin HCl (Vancomycin Oral Syringe) 125 mg Q6 PO Last administered on 03/18/18at 12:04; Admin Dose 125 MG; Start 03/15/18 at 13:30 Miscellaneous Information 1 ea NOTE XX ; Start 03/15/18 at 13:30 Glucose (Glutose) 15 gm Q15M PRN PO DECREASED GLUCOSE; Start 03/15/18 at 13:30 Glucose (Glutose) 22.5 gm Q15M PRN PO DECREASED GLUCOSE; Start 03/15/18 at 13:30 Dextrose (D50w Syringe) 25 ml Q15M PRN IV DECREASED GLUCOSE; Start 03/15/18 at 13:30 Dextrose (D50w Syringe) 50 ml Q15M PRN IV DECREASED GLUCOSE; Start 03/15/18 at 13:30 Glucagon (Glucagen) 1 mg Q15M PRN IM DECREASED GLUCOSE; Start 03/15/18 at 13:30 Glucose (Glutose) 15 gm Q15M PRN BUCCAL DECREASED GLUCOSE; Start 03/15/18 at 13:30 Insulin Aspart (Novolog Insulin Pen) (Adult SC Insulin - Mild Algorithm)... AC MEALS AND BEDTIME SC ; Start 03/15/18 at 17:35 Diagnostic Test (Pha) (Accu-Chek) 1 02 XX ; Start 03/16/18 at 02:00 Tamsulosin HCl (Flomax) 0.4 mg HS PO Last administered on 03/17/18at 20:22; Admin Dose 0.4 MG; Start 03/16/18 at 21:00 Pantoprazole (Protonix Tab) 40 mg DAILY@06 PO Last administered on 03/18/18at 05:10; Admin Dose 40 MG; Start 03/17/18 at 06:00 Amlodipine Besylate (Norvasc) 5 mg DAILY PO Last administered on 03/18/18at 08:26; Admin Dose 5 MG; Start 03/16/18 at 15:00 Albuterol (Proventil 0.083% (Neb)) 2.5 mg Q6H RESP THERAPY [facility] ; Start 03/17/18 at 15:00 CARLOS ARTHUR MD Mar 18, 2018 14:31
--- NOTE | 2018-03-18 14:50 | PN ---
Date/Time of Note Date/Time of Note DATE: 03/18/18 TIME: 14:43 Assessment/Plan VTE Prophylaxis Risk score (from Ns)>0 risk: 3 SCD applied (from Ns): No SCD contraindicated: other (scds) Pharmacological prophylaxis: other (scds) Lines/Catheters IV Catheter Type (from [facility] Saline Lock Assessment/Plan Hospital Course Assessment/Plan Assessment: Diverticulitis C. difficile colitis Abdominal pain 2/2 to above Stage IV Colon cancer - per family dx 8 months -Currently on chemotherapy Hepatic lesion 1.1cm, worrisome for metastatic lesion on imaging DM Hypertension CAD Aortic stenosis History of MVR Osteoarthritis BPH Plan: Pt was d/c'd to continue CDIFF ABX at home, however prior to D/c- pt has x1 black stool- Plavix and asa are now on hold We will plan for EGD tomorrow- as pt already received dose of Plavix this am- we will also increase PPI to BID and monitor labs Continue CDIFF ABX. Will require cardiac clearance prior to endoscopy tomorrow Patient seen in collaboration with Dr. Laguerre/[facility] Subjective: Pt currently sitting up in chair, at bedside. Discussed plan for EGD tomorrow- via cans vacuum tester. Reviewed risks/benefits Pt/ agreed to procedure PHYSICAL EXAMINATION: GENERAL: Well developed, well nourished, alert & oriented x 3, in no acute distress SKIN: No lesions, no stigmata chronic liver disease, no evidence of bleeding diathesis LYMPHATIC: No palpable lymphadenopathy. HEAD: Normocephalic, atraumatic, no tenderness. EYES: Pupils equal reactive to light and accommodation, full extraocular movements, sclera clear, non-icteric, no discharge. EARS/NOSE AND THROAT: Ears normal, nose normal, oropharynx normal, oral membranes well hydrated without lesions. NECK: Supple, no masses, thyroid normal, JVP within normal limits, carotids normal without bruits. CHEST: Inspection within normal limits. CARDIOVASCULAR: Heart: Regular rate and rhythm, no murmurs, gallops or rubs. Peripheral pulses present within normal limits, no cyanosis, clubbing or edemas. No pulsatile abdominal mass RESPIRATORY: Lungs clear to auscultation and percussion, no wheezing, no rubs GASTROINTESTINAL AND LIVER: Abdomen: Soft, obese, non tenderness, non-distended, no hernias, no masses, no organomegaly, no ascites, no guarding, no rebound tenderness, normoactive bowel sounds. Rectal: Deferred. GENITOURINARY: Male genitalia within normal limits. EXTREMITIES: No cyanosis, clubbing or edema. Result Diagram: 03/16/18 0425 03/18/18 0436 Results 24hrs Laboratory Tests Test 03/17/18 17:21 03/17/18 20:21 03/18/18 04:36 03/18/18 07:53 Bedside Glucose 113 115 96 Sodium Level 141 Potassium Level 3.8 Chloride Level 118 H Carbon Dioxide Level 15 L Anion Gap 8 Blood Urea Nitrogen 19 Creatinine 1.58 H Est Glomerular Filtrat Rate mL/min Glucose Level 83 Calcium Level 8.4 Total Bilirubin 0.0 L Direct Bilirubin 0.00 Indirect Bilirubin 0.0 Aspartate Amino 23 Transf (AST/SGOT) Alanine 20 Aminotransferase (AL T/SGPT) Alkaline Phosphatase 40 L Total Protein 5.5 L Albumin 2.7 L Globulin 2.80 Albumin/Globulin 0.96 Ratio Test 03/18/18 11:56 Bedside Glucose 122 Exam/Review of Systems Vital Signs Vitals Vital Signs Date Temp Pulse Resp B/P (MAP) Pulse Ox O2 O2 Flow FiO2 Time Delivery Rate 03/18/18 97.9 62 17 147/63 97 Room Air 08:27 (91) Intake and Output 03/17/18 03/17/18 03/18/18 1515:00 23:00 07:00 IntakeIntake Total 200 ml 100 ml 340 ml OutputOutput Total 250 ml BalanceBalance 200 ml -150 ml 340 ml Medications Medications Current Medications Ondansetron HCl (Zofran Inj) 4 mg Q6H PRN IV NAUSEA AND/OR VOMITING; Start 03/13/18 at 19:00 Acetaminophen (Tylenol Tab) 650 mg Q6H PRN PO MILD PAIN(1-3)OR ELEVATED TEMP; Start 03/13/18 at 19:00 Metronidazole 100 ml @ 100 mls/hr Q8 IVPB Last administered on 03/18/18at 13:50; Admin Dose 100 MLS/HR; Start 03/13/18 at 22:00 Hydralazine HCl (Apresoline) 5 mg Q8 PRN IV sbp>160 Last administered on 03/16/18at 23:39; Admin Dose 5 MG; Start 03/14/18 at 16:30 Vancomycin HCl (Vancomycin Oral Syringe) 125 mg Q6 PO Last administered on 03/18/18at 12:04; Admin Dose 125 MG; Start 03/15/18 at 13:30 Miscellaneous Information 1 ea NOTE XX ; Start 03/15/18 at 13:30 Glucose (Glutose) 15 gm Q15M PRN PO DECREASED GLUCOSE; Start 03/15/18 at 13:30 Glucose (Glutose) 22.5 gm Q15M PRN PO DECREASED GLUCOSE; Start 03/15/18 at 13:30 Dextrose (D50w Syringe) 25 ml Q15M PRN IV DECREASED GLUCOSE; Start 03/15/18 at 13:30 Dextrose (D50w Syringe) 50 ml Q15M PRN IV DECREASED GLUCOSE; Start 03/15/18 at 13:30 Glucagon (Glucagen) 1 mg Q15M PRN IM DECREASED GLUCOSE; Start 03/15/18 at 13:30 Glucose (Glutose) 15 gm Q15M PRN BUCCAL DECREASED GLUCOSE; Start 03/15/18 at 13:30 Insulin Aspart (Novolog Insulin Pen) (Adult SC Insulin - Mild Algorithm)... AC MEALS AND BEDTIME SC ; Start 03/15/18 at 17:35 Diagnostic Test (Pha) (Accu-Chek) 1 ea 02 XX ; Start 03/16/18 at 02:00 Tamsulosin HCl (Flomax) 0.4 mg HS PO Last administered on 03/17/18at 20:22; Admin Dose 0.4 MG; Start 03/16/18 at 21:00 Pantoprazole (Protonix Tab) 40 mg DAILY@06 PO Last administered on 03/18/18at 05 :10; Admin Dose 40 MG; Start 03/17/18 at 06:00 Amlodipine Besylate (Norvasc) 5 mg DAILY PO Last administered on 03/18/18at 08:26; Admin Dose 5 MG; Start 03/16/18 at 15:00 Albuterol (Proventil 0.083% (Neb)) 2.5 mg Q6H RESP THERAPY N ; Start 03/17/18 at 15:00 SILVINA XIAO Mar 18, 2018 14:50
[2018-03-18 14:59] VITALS: BP 135/73; PULSE 75; RESP 17
[2018-03-18 20:00] VITALS: BP 156/68; PULSE 72; RESP 18
[2018-03-18] MEDS: TAMSULOSIN (SR) 0.4 MG CAP PO SCH (21:33)
[2018-03-19] VITALS (9 sets, daily range): BP systolic 133–152; BP diastolic 54–66; PULSE 64–77; RESP 18–28
[2018-03-19] MEDS: VANCOMYCIN HCL 250 MG/5ML POSYG PO SCH ×5 (00:20→23:57)
[2018-03-19] MEDS: ALBUTEROL 0.083% (NEB) 2.5 MG/3 ML AMP HHN SCH ×4 (01:17→20:12)
[2018-03-19] MEDS: ACCUCHECK AT 2AM (Patients on SS coverage) XX SCH (02:00)
[2018-03-19] MEDS: metroNIDAZOLE 500 MG/NS (PMX) 100 ML IVPB SCH ×3 (05:39→22:37)
[2018-03-19] MEDS: PANTOPRAZOLE (EC) 40 MG TAB PO SCH ×2 (05:39→18:09)
[2018-03-19] MEDS: Insulin NOVOLOG SS MILD Algorithm (SS with meals and bedtime) SC SCH ×4 (07:02→20:52)
[2018-03-19] MEDS: DEXTROSE 5%-0.45% NACL 1,000 ML IV SCH (08:30)
[2018-03-19] MEDS: AMLODIPINE 5 MG TAB PO SCH ×3 (08:30→08:38)
--- NOTE | 2018-03-19 10:15 | CONS ---
Date/Time of Note Date/Time of Note DATE: 03/19/18 TIME: 10:15 Assessment/Plan Assessment/Plan Assessment/Plan Ok for EGD - fill note dictated # [id number] Result Diagram: 03/19/18 0510 03/19/18 0510 Results 24hrs Laboratory Tests Test 03/18/18 11:56 03/18/18 16:58 03/18/18 17:03 03/18/18 21:35 Bedside Glucose 122 139 151 Hemoglobin 10.4 L Hematocrit 31.4 L Test 03/19/18 05:10 03/19/18 06:50 03/19/18 08:06 White Blood Count 6.8 Red Blood Count 3.23 L Hemoglobin 10.3 L Hematocrit 30.6 L Mean Corpuscular 94.7 Volume Mean Corpuscular 31.9 Hemoglobin Mean Corpuscular 33.7 Hemoglobin Concent Red Cell 15.6 H Distribution Width Platelet Count 222 Mean Platelet Volume 8.9 Immature 0.300 Granulocytes % Neutrophils % 54.8 Lymphocytes % 30.2 Monocytes % 11.0 Eosinophils % 3.1 Basophils % 0.6 Nucleated Red Blood 0.0 Cells % Immature 0.020 Granulocytes # Neutrophils # 3.7 Lymphocytes # 2.1 Monocytes # 0.8 Eosinophils # 0.2 Basophils # 0.0 Nucleated Red Blood 0.0 Cells # Sodium Level 144 Potassium Level 3.6 Chloride Level 117 H Carbon Dioxide Level 14 L Anion Gap 13 Blood Urea Nitrogen 19 Creatinine 1.49 H Est Glomerular Filtrat Rate mL/min Glucose Level 101 Calcium Level 8.6 Bedside Glucose 91 110 Consultation Date/Type/Reason Admit Date/Time Mar 13, 2018 at 15:43 Initial Consult Date 03/14/18 Requesting Provider: SMITH MATSON MD Exam/Review of Systems Vital Signs Vitals Vital Signs Date Temp Pulse Resp B/P (MAP) Pulse Ox O2 O2 Flow FiO2 Time Delivery Rate 03/19/18 72 16 98 21 08:16 03/19/18 97.9 144/66 08:00 (92) 03/18/18 Room Air 14:59 Intake and Output 03/18/18 03/18/18 03/19/18 1515:00 23:00 07:00 IntakeIntake Total 100 ml 500 ml 100 ml BalanceBalance 100 ml 500 ml 100 ml Medications Medications Current Medications Ondansetron HCl (Zofran Inj) 4 mg Q6H PRN IV NAUSEA AND/OR VOMITING; Start 03/13/18 at 19:00 Acetaminophen (Tylenol Tab) 650 mg Q6H PRN PO MILD PAIN(1-3)OR ELEVATED TEMP; Start 03/13/18 at 19:00 Metronidazole 100 ml @ 100 mls/hr Q8 IVPB Last administered on 03/19/18at 05:39; Admin Dose 100 MLS/HR; Start 03/13/18 at 22:00 Hydralazine HCl (Apresoline) 5 mg Q8 PRN IV sbp>160 Last administered on 03/16/18at 23:39; Admin Dose 5 MG; Start 03/14/18 at 16:30 Vancomycin HCl (Vancomycin Oral Syringe) 125 mg Q6 PO Last administered on 03/19/18at 05:39; Admin Dose 125 MG; Start 03/15/18 at 13:30 Miscellaneous Information 1 ea NOTE XX ; Start 03/15/18 at 13:30 Glucose (Glutose) 15 gm Q15M PRN PO DECREASED GLUCOSE; Start 03/15/18 at 13:30 Glucose (Glutose) 22.5 gm Q15M PRN PO DECREASED GLUCOSE; Start 03/15/18 at 13:30 Dextrose (D50w Syringe) 25 ml Q15M PRN IV DECREASED GLUCOSE; Start 03/15/18 at 13:30 Dextrose (D50w Syringe) 50 ml Q15M PRN IV DECREASED GLUCOSE; Start 03/15/18 at 13:30 Glucagon (Glucagen) 1 mg Q15M PRN IM DECREASED GLUCOSE; Start 03/15/18 at 13:30 Glucose (Glutose) 15 gm Q15M PRN BUCCAL DECREASED GLUCOSE; Start 03/15/18 at 13:30 Insulin Aspart (Novolog Insulin Pen) (Adult SC Insulin - Mild Algorithm)... AC MEALS AND BEDTIME SC ; Start 03/15/18 at 17:35 Diagnostic Test (Pha) (Accu-Chek) 1 ea 02 XX ; Start 03/16/18 at 02:00 Tamsulosin HCl (Flomax) 0.4 mg HS PO Last administered on 03/18/18at 21:33; Admin Dose 0.4 MG; Start 03/16/18 at 21:00 Amlodipine Besylate (Norvasc) 5 mg DAILY PO Last administered on 03/18/18at 08:26; Admin Dose 5 MG; Start 03/16/18 at 15:00 Albuterol (Proventil 0.083% (Neb)) 2.5 mg Q6H RESP THERAPY [facility] Last administered on 03/19/18at 08:14; Admin Dose 2.5 MG; Start 03/17/18 at 15:00 Pantoprazole (Protonix Tab) 40 mg BID@0600,1800 PO Last administered on 03/19/18 at 05:39; Admin Dose 40 MG; Start 03/18/18 at 18:00 Dextrose/Sodium Chloride 1,000 ml @ 40 mls/hr Q24H IV Last administered on 03/19/18at 08:30; Admin Dose 40 MLS/HR; Start 03/19/18 at 07:30 KODAK CORTEZ MD Mar 19, 2018 10:15
--- NOTE | 2018-03-19 12:56 | CONS ---
Date/Time of Note Date/Time of Note DATE: 03/19/18 TIME: 12:52 Assessment/Plan Assessment/Plan Assessment/Plan #STAGE IV colon CA -pt currently under treatment with Dr. Vang -once the C diff resolves, pt can resume treatment #Cdiff -continue FLagyl -continue current diet #HTN -continue current hypertensive medications # Abdominal pain with Lizabeth - for EGD toady- fu # Acute Kidney Injury - Cr improved to 1.49 from 1.59 on 03/14/18 - management per PMD A total of 50 minutes of face to face time was spent speaking with the patient and his sister of which greater than 50% was spent in counseling and coordination of care and the detailed question and answer session. Dw staff Patient seen in collaboration with Dr Jj Result Diagram: 03/19/18 0510 03/19/18 0510 Results 24hrs Laboratory Tests Test 03/18/18 16:58 03/18/18 17:03 03/18/18 21:35 03/19/18 05:10 Hemoglobin 10.4 L 10.3 L Hematocrit 31.4 L 30.6 L Bedside Glucose 139 151 White Blood Count 6.8 Red Blood Count 3.23 L Mean Corpuscular 94.7 Volume Mean Corpuscular 31.9 Hemoglobin Mean Corpuscular 33.7 Hemoglobin Concent Red Cell 15.6 H Distribution Width Platelet Count 222 Mean Platelet Volume 8.9 Immature 0.300 Granulocytes % Neutrophils % 54.8 Lymphocytes % 30.2 Monocytes % 11.0 Eosinophils % 3.1 Basophils % 0.6 Nucleated Red Blood 0.0 Cells % Immature 0.020 Granulocytes # Neutrophils # 3.7 Lymphocytes # 2.1 Monocytes # 0.8 Eosinophils # 0.2 Basophils # 0.0 Nucleated Red Blood 0.0 Cells # Sodium Level 144 Potassium Level 3.6 Chloride Level 117 H Carbon Dioxide Level 14 L Anion Gap 13 Blood Urea Nitrogen 19 Creatinine 1.49 H Est Glomerular Filtrat Rate mL/min Glucose Level 101 Calcium Level 8.6 Test 03/19/18 06:50 03/19/18 08:06 03/19/18 12:02 Bedside Glucose 91 110 117 Consultation Date/Type/Reason Admit Date/Time Mar 13, 2018 at 3:43 pm Initial Consult Date 03/14/18 Type of Consult ONCOLOGY Reason for Consultation COLON CANCER Requesting Provider: SMITH MATSON MD 24 HR Interval Summary Free Text/Dictation Going for EGD today denies any abdominal pain/ nausea/vomitting no new events reported last night Constitutional: requiring IVF Detailed Summary Eyes: no complaints ENT: no complaints Respiratory: no complaints Cardiovascular: no complaints Gastrointestinal: no complaints Genitourinary: no complaints Musculoskeletal: no complaints Skin: no complaints Neurologic: no complaints Endocrine: no complaints Lymphatic: no complaints Exam/Review of Systems Vital Signs Vitals Vital Signs Date Temp Pulse Resp B/P (MAP) Pulse Ox O2 O2 Flow FiO2 Time Delivery Rate 03/19/18 72 16 98 21 08:16 03/19/18 97.9 144/66 08:00 (92) 03/18/18 Room Air 14:59 Intake and Output 03/18/18 03/18/18 03/19/18 1515:00 23:00 07:00 IntakeIntake Total 100 ml 500 ml 100 ml BalanceBalance 100 ml 500 ml 100 ml Exam Constitutional: alert, well developed Psych: nl mood/affect Head: atraumatic Eyes: nl conjunctiva, EOMI, nl lids, nl sclera ENMT: nl external ears & nose Neck: non-tender Respiratory: diminished breath sounds Cardiovascular: nl pulses, other (S1S2) Gastrointestinal: soft, tender Musculoskeletal: nl extremities to inspection Extremities: normal pulses Neurological: nl speech, other (alert/repsonsive) Skin: nl turgor Medications Medications Current Medications Ondansetron HCl (Zofran Inj) 4 mg Q6H PRN IV NAUSEA AND/OR VOMITING; Start 03/13/18 at 19:00 Acetaminophen (Tylenol Tab) 650 mg Q6H PRN PO MILD PAIN(1-3)OR ELEVATED TEMP; Start 03/13/18 at 19:00 Metronidazole 100 ml @ 100 mls/hr Q8 IVPB Last administered on 03/19/18at 05:39; Admin Dose 100 MLS/HR; Start 03/13/18 at 22:00 Hydralazine HCl (Apresoline) 5 mg Q8 PRN IV sbp>160 Last administered on 03/16/18at 23:39; Admin Dose 5 MG; Start 03/14/18 at 16:30 Vancomycin HCl (Vancomycin Oral Syringe) 125 mg Q6 PO Last administered on 03/19/18at 12:04; Admin Dose 125 MG; Start 03/15/18 at 13:30 Miscellaneous Information 1 ea NOTE XX ; Start 03/15/18 at 13:30 Glucose (Glutose) 15 gm Q15M PRN PO DECREASED GLUCOSE; Start 03/15/18 at 13:30 Glucose (Glutose) 22.5 gm Q15M PRN PO DECREASED GLUCOSE; Start 03/15/18 at 13:30 Dextrose (D50w Syringe) 25 ml Q15M PRN IV DECREASED GLUCOSE; Start 03/15/18 at 13:30 Dextrose (D50w Syringe) 50 ml Q15M PRN IV DECREASED GLUCOSE; Start 03/15/18 at 13:30 Glucagon (Glucagen) 1 mg Q15M PRN IM DECREASED GLUCOSE; Start 03/15/18 at 13:30 Glucose (Glutose) 15 gm Q15M PRN BUCCAL DECREASED GLUCOSE; Start 03/15/18 at 13:30 Insulin Aspart (Novolog Insulin Pen) (Adult SC Insulin - Mild Algorithm)... AC MEALS AND BEDTIME SC ; Start 03/15/18 at 17:35 Diagnostic Test (Pha) (Accu-Chek) 1 ea 02 XX ; Start 03/16/18 at 02:00 Tamsulosin HCl (Flomax) 0.4 mg HS PO Last administered on 03/18/18at 21:33; Admin Dose 0.4 MG; Start 03/16/18 at 21:00 Amlodipine Besylate (Norvasc) 5 mg DAILY PO Last administered on 03/18/18at 08:26; Admin Dose 5 MG; Start 03/16/18 at 15:00 Albuterol (Proventil 0.083% (Neb)) 2.5 mg Q6H RESP THERAPY [facility] Last administered on 03/19/18at 08:14; Admin Dose 2.5 MG; Start 03/17/18 at 15:00 Pantoprazole (Protonix Tab) 40 mg BID@0600,1800 PO Last administered on 03/19/18at 05:39; Admin Dose 40 MG; Start 03/18/18 at 18:00 Dextrose/Sodium Chloride 1,000 ml @ 40 mls/hr Q24H IV Last administered on 03/19/18at 08:30; Admin Dose 40 MLS/HR; Start 03/19/18 at 07:30 YARITZA LEACH Mar 19, 2018 12:56 pm
--- NOTE | 2018-03-19 12:57 | CONS ---
DATE OF ADMISSION: 03/13/2018 DATE OF CONSULTATION: 03/19/2018 TYPE OF CARDIOLOGY: Cardiology. REFERRING PHYSICIAN: Silver Matson MD REASON FOR EVALUATION: Coronary artery disease, mitral valve replacement, history of aortic valve st enosis. HISTORY OF PRESENT ILLNESS: Mr. Mendoza is an 82-year-old gentleman with history of hypertension, dyslipidemia, history of aortic valve replacement bioprosthetic, history of mitral valve replacement also a bioprosthetic, who comes in hospital now for evaluation of abdominal pain. I have been asked to see patient in consultation because of his cardiac history. It appears that the patient is withou t any significant evidence of chest pain at this particular point. He is being treated with antibiot ics for his abdominal problems. He does not appear to be fluid overloaded. He does not report any a ctive chest pain but I think for now, conservative therapy is expected. We will continue to adjust p atient's medications as needed. I will provide more recommendations for his care as more information of his condition becomes available. As far as endoscopy is concerned, it is okay to proceed with pr ocedure without any further reevaluation. PAST MEDICAL HISTORY: 1. Hypertension. 2. Dyslipidemia. 3. History of mitral valve replacement. 4. History of coronary artery disease. 5. History of CHF. 6. History of colon cancer. ALLERGIES: NO KNOWN DRUG ALLERGIES. SOCIAL HISTORY: The patient does not smoke, does not drink, does not do any drugs. FAMILY HISTORY: Negative for sudden cardiac or premature coronary artery disease. MEDICATIONS: Here include: 1. Pantoprazole 40 mg p.o. once a day. 2. Albuterol. 3. Tamsulosin. 4. Amlodipine 5 mg once a day. 5. Glucose. 6. Hydralazine. 7. Metronidazole. REVIEW OF SYSTEMS: CONSTITUTIONAL: No fevers, no chills. Recent weight change. HEENT: No changes in vision or hearing. CARDIAC: No chest pain reported. RESPIRATORY: No shortness of breath. GASTROINTESTINAL: No nausea, vomiting. GENITOURINARY: No dysuria or hematuria. NEUROLOGIC: No focal neurological deficits. HEMATOLOGIC: History of colon cancer with metastases. PSYCHIATRIC: No history of psychiatric illness. PHYSICAL EXAMINATION: VITAL SIGNS: Temperature is 97.9, heart rate 82, blood pressure 144/62. GENERAL: He is a well-nourished gentleman in no acute distress, alert and oriented x1 to 2, somewhat aware of his condition, speaking poor Thai. HEENT: Head: Normocephalic, atraumatic. Eyes are anicteric. NECK: Supple. JVD is 6 to 7 cm. There is no lymphadenopathy, no thyromegaly. HEART: Chest is with midsternal scar. He has soft I/ holosystolic murmur at the apex and also I/V I holosystolic murmur at the base. LUNGS: Coarse to base. ABDOMEN: Distended. Bowel sounds are present. There is no hepatosplenomegaly. GENITOURINARY: Grossly intact. EXTREMITIES: Show no clubbing, cyanosis or edema. DIAGNOSTIC DATA: No ECG is available for my review. We are going to get one shortly. LABORATORY DATA: White cell count 6.8, hemoglobin 10.3, platelets 222. INR is 1.2. Sodium 144, pot assium 4.3, BUN 19, creatinine 1.49. ASSESSMENT AND PLAN: 1. Valvular heart disease. The patient has mitral and aortic valve replacement bioprosthetic for my evaluation. Continue to monitor closely. 2. Hypertension. Blood pressure is well optimized. Continue to adjust medications as needed. 3. Preoperative assessment. The patient is going to have EGD. It is reasonable to proceed without any further recertification. Preoperative antibiotics would be reasonable. 4. Renal insufficiency. Creatinine is elevated at 1.49. Continue to adjust medications as needed. 5. Anemia. No active signs of bleeding now. 6. Colon cancer stage IV. Dr. Jj follows. I would like to thank Dr. Matson for referring this patient for my evaluation. Dictated By: KODAK CORTEZ MD ML/NTS Conf#: [id number] DID#: [id number] CC: SILVER MATSON MD;*EndCC*
--- NOTE | 2018-03-19 13:13 | QN ---
Documentation Comment I spoke to the patient's daughter, discussed reasoning for EGD as well as process of EGD reviewed risk/benefits/alternatives for sedation and procedure patient's daughter verbalized understanding. Additionally called back patient and starter to make her aware we did receive cardiac clearance she verbalized understanding and is agreement to procedure SILVINA XIAO Mar 19, 2018 13:13
--- NOTE | 2018-03-19 14:43 | PN ---
Date/Time of Note Date/Time of Note DATE: 03/19/18 TIME: 14:39 Assessment/Plan VTE Prophylaxis Risk score (from Ns)>0 risk: 5 [place] [facility] [place]CD contraindicated: low risk/ambulating Pharmacological prophylaxis: NA/contraindicated Pharm contraindication: low risk/ambulating, bleeding Lines/Catheters IV [facility]from [facility] Saline Lock Urinary Cath still in place: No Assessment/Plan Hospital Course 82 y/o with 1. abd pain with CT diverticulitis , partial obstruction on CT scan 2. diverticulites 3. hx stage IV colon cancer on chemo gi 4. History of hypertension. 5. History of dyslipidemia. 6. History of coronary artery bypass graft. 7. History of aortic stenosis. 8. History of mitral valve repair. 9. Osteoarthritis. 10. Diabetes mellitus. 11. BPH. 12 Diarrhoea ? chemo + C diff now with black stool> r/o GI bleed 13 SARA vs SARA on CKD 14 Non gap acidosis likley due to diarrhoea Plan - hold ASA/Plavix, cleared by Cards for EGD - hb stable - egd today - Add sodium bicarb - cw PPI bid -- Cw Vancomycin/flagyl - f/u oncology as OPD post dc Result Diagram: 03/19/18 0510 03/19/18 0510 Results 24hrs Laboratory Tests Test 03/18/18 16:58 03/18/18 17:03 03/18/18 21:35 03/19/18 05:10 Hemoglobin 10.4 L 10.3 L Hematocrit 31.4 L 30.6 L Bedside Glucose 139 151 White Blood Count 6.8 Red Blood Count 3.23 L Mean Corpuscular 94.7 Volume Mean Corpuscular 31.9 Hemoglobin Mean Corpuscular 33.7 Hemoglobin Concent Red Cell 15.6 H Distribution Width Platelet Count 222 Mean Platelet Volume 8.9 Immature 0.300 Granulocytes % Neutrophils % 54.8 Lymphocytes % 30.2 Monocytes % 11.0 Eosinophils % 3.1 Basophils % 0.6 Nucleated Red Blood 0.0 Cells % Immature 0.020 Granulocytes # Neutrophils # 3.7 Lymphocytes # 2.1 Monocytes # 0.8 Eosinophils # 0.2 Basophils # 0.0 Nucleated Red Blood 0.0 Cells # Sodium Level 144 Potassium Level 3.6 Chloride Level 117 H Carbon Dioxide Level 14 L Anion Gap 13 Blood Urea Nitrogen 19 Creatinine 1.49 H Est Glomerular Filtrat Rate mL/min Glucose Level 101 Calcium Level 8.6 Test 03/19/18 06:50 03/19/18 08:06 03/19/18 12:02 Bedside Glucose 91 110 117 Subjective 24 Hr Interval Summary Free Text/Dictation EGD today no black stool today Exam/Review of Systems Vital Signs Vitals Vital Signs Date Temp Pulse Resp B/P (MAP) Pulse Ox O2 O2 Flow FiO2 Time Delivery Rate 03/19/18 97.9 69 18 139/64 98 14:32 (89) 03/19/18 21 08:16 03/18/18 Room Air 14:59 Intake and Output 03/18/18 03/18/18 03/19/18 1515:00 23:00 07:00 IntakeIntake Total 100 ml 500 ml 100 ml BalanceBalance 100 ml 500 ml 100 ml Exam Respiratory: clear to auscultation Cardiovascular: regular rate and rhythm Gastrointestinal: soft Musculoskeletal: nl extremities to inspection Extremities: normal pulses Medications Medications Current Medications Ondansetron HCl (Zofran Inj) 4 mg Q6H PRN IV NAUSEA AND/OR VOMITING; Start 03/13/18 at 19:00 Acetaminophen (Tylenol Tab) 650 mg Q6H PRN PO MILD PAIN(1-3)OR ELEVATED TEMP; Start 03/13/18 at 19:00 Metronidazole 100 ml @ 100 mls/hr Q8 IVPB Last administered on 03/19/18at 13:21; Admin Dose 100 MLS/HR; Start 03/13/18 at 22:00 Hydralazine HCl (Apresoline) 5 mg Q8 PRN IV sbp>160 Last administered on 03/16/18at 23:39; Admin Dose 5 MG; Start 03/14/18 at 16:30 Vancomycin HCl (Vancomycin Oral Syringe) 125 mg Q6 PO Last administered on 03/19/18at 12:04; Admin Dose 125 MG; Start 03/15/18 at 13:30 Miscellaneous Information 1 ea NOTE XX ; Start 03/15/18 at 13:30 Glucose (Glutose) 15 gm Q15M PRN PO DECREASED GLUCOSE; Start 03/15/18 at 13:30 Glucose (Glutose) 22.5 gm Q15M PRN PO DECREASED GLUCOSE; Start 03/15/18 at 13:30 Dextrose (D50w Syringe) 25 ml Q15M PRN IV DECREASED GLUCOSE; Start 03/15/18 at 13:30 Dextrose (D50w Syringe) 50 ml Q15M PRN IV DECREASED GLUCOSE; Start 03/15/18 at 13:30 Glucagon (Glucagen) 1 mg Q15M PRN IM DECREASED GLUCOSE; Start 03/15/18 at 13:30 Glucose (Glutose) 15 gm Q15M PRN BUCCAL DECREASED GLUCOSE; Start 03/15/18 at 13:30 Insulin Aspart (Novolog Insulin Pen) (Adult SC Insulin - Mild Algorithm)... AC MEALS AND BEDTIME SC ; Start 03/15/18 at 17:35 Diagnostic Test (Pha) (Accu-Chek) 1 ea 02 XX ; Start 03/16/18 at 02:00 Tamsulosin HCl (Flomax) 0.4 mg HS PO Last administered on 03/18/18at 21:33; Admin Dose 0.4 MG; Start 03/16/18 at 21:00 Amlodipine Besylate (Norvasc) 5 mg DAILY PO Last administered on 03/18/18at 08:26; Admin Dose 5 MG; Start 03/16/18 at 15:00 Albuterol (Proventil 0.083% (Neb)) 2.5 mg Q6H RESP THERAPY HHN Last administered on 03/19/18at 08:14; Admin Dose 2.5 MG; Start 03/17/18 at 15:00 Pantoprazole (Protonix Tab) 40 mg BID@0600,1800 PO Last administered on 03/19/18 at 05:39; Admin Dose 40 MG; Start 03/18/18 at 18:00 Dextrose/Sodium Chloride 1,000 ml @ 40 mls/hr Q24H IV Last administered on 03/19/18at 08:30; Admin Dose 40 MLS/HR; Start 03/19/18 at 07:30 CARLOS ARTHUR MD Mar 19, 2018 14:43
--- NOTE | 2018-03-19 15:52 | PREAC ---
Date/Time of Note Date/Time of Note DATE: 03/19/18 TIME: 15:51 Anesthesia Eval and Record Evaluation Time Pre-Procedure Interview DATE: 03/19/18 TIME: 15:51 Age 82 Sex male NPO: 8 hrs Preoperative diagnosis abd pain Planned procedure egd Past Medical History Past Medical History: Includes Cardio: HTN, CAD, CABG, Other (, MVR) Endo: Diabetes Surgery & Anesthesia Issues No known issue Meds Anticoagulation: Yes Beta Emiliana within 24 hr: Yes Active Scripts Tamsulosin Hcl* (Flomax*) 0.4 Mg Capsr, 0.4 MG PO HS for 28 Days, CAP Prov:SMITH MATSON MD 05/20/15 Potassium Chloride (Klor-Con M10) 10 Meq Tabsr, 10 MEQ PO BID for 14 Days, BOTTLE Prov:SMITH MATSON MD 05/20/15 Lisinopril* (Zestril*) 5 Mg Tab, 5 MG PO DAILY for 28 Days, TAB Prov:SMITH MATSON MD 05/20/15 Furosemide* (Lasix*) 20 Mg Tab, 20 MG PO DAILY@06 for 14 Days, TAB Prov:SMITH MATSON MD 05/20/15 Clopidogrel Bisulfate (Clopidogrel) 75 Mg Tab, 75 MG PO DAILY for 28 Days, TAB Prov:SMITH MATSON MD 05/20/15 Carvedilol* (Coreg*) 12.5 Mg Tab, 12.5 MG PO BID for 28 Days, TAB Prov:SMITH MATSON MD 05/20/15 Atorvastatin Calcium* (Atorvastatin Calcium*) 20 Mg Tab, 20 MG PO HS for 28 Days, TAB Prov:SMTIH MATSON MD 05/20/15 Aspirin (Aspirin Lite-Coat) 325 Mg Tab, 325 MG PO DAILY for 28 Days, TAB Prov:SMITH MATSON MD 05/20/15 [place]-3/Dha/Epa/Fish Oil (FISH OIL EC 1,000 MG SOFTGEL) 1,000 Mg Cap, 1000 MG PO BID for 28 Days, BOT Prov:SMITH MATSON MD 05/20/15 Zolpidem Tartrate (Ambien Chuckie) 5 Mg Tab, 5 MG PO HS PRN for INSOMNIA for 14 Days, TAB Prov:SMITH MATSON MD 05/19/15 Acetaminophen* (Tylenol*) 325 Mg Tab, 650 MG PO Q4H PRN for PAIN AND OR ELEVATED TEMP for 14 Days, TAB Prov:SMITH MATSON MD 05/19/15 Losartan Potassium* (Cozaar*) 25 Mg Tab, 25 MG PO DAILY for 30 Days, TAB 3 Refills Prov:JESSICA MCCLENDON 12/27/13 Insulin Glargine* (Lantus*) 100 Unit/Ml Soln, 11 UNIT SC AC BREAKFAST BEDTIME, #1 VIAL 3 Refills Prov:JESSICA MCCLENDON 12/27/13 Reported Medications Allopurinol* (Allopurinol*) 300 Mg Tablet, 300 MG PO DAILY, TAB 12/22/13 Clopidogrel Bisulfate (Clopidogrel) 75 Mg Tablet, 75 MG PO DAILY, TAB 12/22/13 Carvedilol* (Carvedilol*) 12.5 Mg Tablet, 12.5 MG PO BID, TAB 12/22/13 Docusate Sodium* (Colace*) 100 Mg Capsule, 100 MG PO BID, CAP 12/22/13 Zinc (ZINC) 50 Mg Tablet, 50 MG PO DAILY 12/22/13 Ascorbic Acid (Vitamin C) 500 Mg Tab, 1000 MG PO DAILY, TAB 12/22/13 Furosemide (Lasix) 40 Mg Tab, 40 MG PO DAILY, TAB 05/27/13 Tamsulosin Hcl* (Tamsulosin Hcl*) 0.4 Mg Cap.er.24h, 0.4 MG PO DAILY 05/27/13 Rosuvastatin Calcium* (Crestor*) 10 Mg Tablet, 10 MG PO DAILY 05/27/13 Aspirin Ec (Aspir 81) 81 Mg Tablet.dr, 81 MG PO DAILY 05/27/13 Current Medications Ondansetron HCl (Zofran Inj) 4 mg Q6H PRN IV NAUSEA AND/OR VOMITING; Start 03/13/18 at 19:00 Acetaminophen (Tylenol Tab) 650 mg Q6H PRN PO MILD PAIN(1-3)OR ELEVATED TEMP; Start 03/13/18 at 19:00 Metronidazole 100 ml @ 100 mls/hr Q8 IVPB Last administered on 03/19/18at 13:21; Admin Dose 100 MLS/HR; Start 03/13/18 at 22:00 Hydralazine HCl (Apresoline) 5 mg Q8 PRN IV sbp>160 Last administered on 03/16/18at 23:39; Admin Dose 5 MG; Start 03/14/18 at 16:30 Vancomycin HCl (Vancomycin Oral Syringe) 125 mg Q6 PO Last administered on 03/19/18at 12:04; Admin Dose 125 MG; Start 03/15/18 at 13:30 Miscellaneous Information 1 ea NOTE XX ; Start 03/15/18 at 13:30 Glucose (Glutose) 15 gm Q15M PRN PO DECREASED GLUCOSE; Start 03/15/18 at 13:30 Glucose (Glutose) 22.5 gm Q15M PRN PO DECREASED GLUCOSE; Start 03/15/18 at 13:30 Dextrose (D50w Syringe) 25 ml Q15M PRN IV DECREASED GLUCOSE; Start 03/15/18 at 13:30 Dextrose (D50w Syringe) 50 ml Q15M PRN IV DECREASED GLUCOSE; Start 03/15/18 at 13:30 Glucagon (Glucagen) 1 mg Q15M PRN IM DECREASED GLUCOSE; Start 03/15/18 at 13:30 Glucose (Glutose) 15 gm Q15M PRN BUCCAL DECREASED GLUCOSE; Start 03/15/18 at 13:30 Insulin Aspart (Novolog Insulin Pen) (Adult SC Insulin - Mild Algorithm)... AC MEALS AND BEDTIME SC ; Start 03/15/18 at 17:35 Diagnostic Test (Pha) (Accu-Chek) 1 ea 02 XX ; Start 03/16/18 at 02:00 Tamsulosin HCl (Flomax) 0.4 mg HS PO Last administered on 03/18/18at 21:33; Admin Dose 0.4 MG; Start 03/16/18 at 21:00 Amlodipine Besylate (Norvasc) 5 mg DAILY PO Last administered on 03/18/18at 08:26; Admin Dose 5 MG; Start 03/16/18 at 15:00 Albuterol (Proventil 0.083% (Neb)) 2.5 mg Q6H RESP THERAPY HHN Last administered on 03/19/18at 14:41; Admin Dose 2.5 MG; Start 03/17/18 at 15:00 Pantoprazole (Protonix Tab) 40 mg BID@0600,1800 PO Last administered on 03/19/18at 05:39; Admin Dose 40 MG; Start 03/18/18 at 18:00 Dextrose/Sodium Chloride 1,000 ml @ 70 mls/hr [id number] IV Last administered on 03/19/18at 08:30; Admin Dose 40 MLS/HR; Start 03/19/18 at 07:30 Sodium Bicarbonate (Sodium Bicarbonate Tab) 1,300 mg TID PO ; Start 03/19/18 at 21:00 Meds reviewed: Yes Allergies Coded Allergies: No Known Allergies (Verified Allergy, Unknown, 05/20/15) Allergies Reviewed: Yes Labs/Studies Labs Reviewed: Reviewed by anesthesiologist Result Diagram: 03/19/18 0510 03/19/18 0510 Laboratory Tests 03/19/18 05:10 test: N/A Studies: ECG (sr), CXR (n/a) Pre-procedure Exam Last vitals Vital Signs Date Temp Pulse Resp B/P (MAP) Pulse Ox O2 O2 Flow FiO2 Time Delivery Rate 03/19/18 77 16 97 21 14:43 03/19/18 97.9 139/64 14:32 (89) 03/18/18 Room Air 14:59 Airway: Adequate mouth opening Mallampati: Mallampati I Teeth: Normal Lung: Normal Heart: Normal ASA Physical Status ASA physical status: 2 Emergency: None Planned Anesthetic General/MAC: MAC Planned Pain Management Parenteral pain med Pre-operative Attestations Prior to commencing anesthesia and surgery, the patient was re-evaluated, there was verification of: *The patient's identity *The results of appropriate recent lab work and preoperative vital signs *The above evaluation not changing prior to induction *Anesthetic plan, risk benefits, alternative and complications discussed with patient/family; questions answered; patient/family understands, accepts and wishes to proceed. JANA GARCIA MD Mar 19, 2018 15:52
[2018-03-19] MEDS ORDERED: ETOMIDATE 20 MG INJ ONE (15:59)
[2018-03-19] MEDS ORDERED: ONDANSETRON 4 MG INJ IV PRN (16:00)
--- NOTE | 2018-03-19 16:41 | HPN ---
Date/Time of Note Date/Time of Note DATE: 03/19/18 TIME: 16:41 Interval H&P Admission Note Pt. seen H&P reviewed: No system changes OLIMPIA STOLL Mar 19, 2018 16:41
[2018-03-19] MEDS ORDERED: PROPOFOL 20 ML ONE (16:54)
[2018-03-19] MEDS: TAMSULOSIN (SR) 0.4 MG CAP PO SCH (20:48)
[2018-03-19] MEDS: NA BICARBONATE 650 MG TAB PO SCH (20:48)
--- NOTE | 2018-03-19 21:14 | PAC ---
Date/Time of Note Date/Time of Note DATE: 03/19/18 TIME: 21:14 Post-Anesthesia Notes Post-Anesthesia Note Last documented vital signs Vital Signs Date Temp Pulse Resp B/P (MAP) Pulse Ox O2 O2 Flow FiO2 Time Delivery Rate 03/19/18 72 18 98 21 20:12 03/19/18 99.3 78 19 148/63 98 20:10 (91) 03/19/18 Room Air 17:02 Activity: WNL Respiratory function: WNL Cardiovascular function: WNL Mental status: Baseline Pain reasonably controlled: Yes Hydration appropriate: Yes Nausea/Vomiting absent: No JANA GARCIA MD Mar 19, 2018 21:14
[2018-03-20] MEDS: DEXTROSE 5%-0.45% NACL 1,000 ML IV SCH ×2 (00:51→15:36)
[2018-03-20] MEDS: ACCUCHECK AT 2AM (Patients on SS coverage) XX SCH (02:00)
[2018-03-20 02:10] VITALS: BP 156/67; PULSE 65; RESP 18
[2018-03-20] MEDS: ALBUTEROL 0.083% (NEB) 2.5 MG/3 ML AMP HHN SCH ×4 (02:25→19:49)
[2018-03-20] MEDS: PANTOPRAZOLE (EC) 40 MG TAB PO SCH (05:52)
[2018-03-20] MEDS: VANCOMYCIN HCL 250 MG/5ML POSYG PO SCH ×3 (05:53→17:48)
[2018-03-20] MEDS: metroNIDAZOLE 500 MG/NS (PMX) 100 ML IVPB SCH ×3 (05:54→21:59)
[2018-03-20] MEDS: Insulin NOVOLOG SS MILD Algorithm (SS with meals and bedtime) SC SCH ×4 (07:30→20:41)
[2018-03-20 07:53] VITALS: BP 133/65; PULSE 76; RESP 16
[2018-03-20] MEDS: AMLODIPINE 5 MG TAB PO SCH (08:39)
[2018-03-20] MEDS: NA BICARBONATE 650 MG TAB PO SCH ×3 (08:40→20:42)
--- NOTE | 2018-03-20 08:58 | CONS ---
Date/Time of Note Date/Time of Note DATE: 03/20/18 TIME: 08:56 Assessment/Plan Assessment/Plan Hospital Course #STAGE IV colon CA -pt currently under treatment with Dr. Vang -once the C diff resolves, pt can resume treatment #melena -HG stable -EGD demonstrated gastritis -continue pantoprazole #Cdiff -continue FLagyl -continue current diet #HTN -continue current hypertensive medications Result Diagram: 03/19/18 0510 03/19/18 0510 Results 24hrs Laboratory Tests Test 03/19/18 12:02 03/19/18 17:18 03/19/18 20:45 03/20/18 07:50 Bedside Glucose 117 110 112 104 Consultation Date/Type/Reason Admit Date/Time Mar 13, 2018 at 15:43 Initial Consult Date 03/14/18 Type of Consult oncology Reason for Consultation metastatic colon cancer Requesting Provider: SMITH MATSON MD 24 HR Interval Summary Free Text/Dictation pt still with diarrhea. pt had and episode of black stool and so underwent EGD that demonstrated gastritis Exam/Review of Systems Vital Signs Vitals Vital Signs Date Temp Pulse Resp B/P (MAP) Pulse Ox O2 O2 Flow FiO2 Time Delivery Rate 03/20/18 99.2 76 16 133/65 98 07:53 (87) 03/20/18 21 02:28 03/19/18 Room Air 17:02 Intake and Output 03/19/18 03/19/18 03/20/18 1515:00 23:00 07:00 IntakeIntake Total 100 ml 800 ml 200 ml BalanceBalance 100 ml 800 ml 200 ml Exam Constitutional: alert, oriented Psych: no complaints Head: normocephalic Eyes: EOMI ENMT: nl external ears & nose Neck: supple Respiratory: clear to auscultation Cardiovascular: regular rate and rhythm Gastrointestinal: soft Musculoskeletal: nl extremities to inspection Medications Medications Current Medications Ondansetron HCl (Zofran Inj) 4 mg Q6H PRN IV NAUSEA AND/OR VOMITING; Start 03/13/18 at 19:00 Acetaminophen (Tylenol Tab) 650 mg Q6H PRN PO MILD PAIN(1-3)OR ELEVATED TEMP; Start 03/13/18 at 19:00 Metronidazole 100 ml @ 100 mls/hr Q8 IVPB Last administered on 03/20/18at 05:54; Admin Dose 100 MLS/HR; Start 03/13/18 at 22:00 Hydralazine HCl (Apresoline) 5 mg Q8 PRN IV sbp>160 Last administered on 03/16/18at 23:39; Admin Dose 5 MG; Start 03/14/18 at 16:30 Vancomycin HCl (Vancomycin Oral Syringe) 125 mg Q6 PO Last administered on 03/20/18at 05:53; Admin Dose 125 MG; Start 03/15/18 at 13:30 Miscellaneous Information 1 ea NOTE XX ; Start 03/15/18 at 13:30 Glucose (Glutose) 15 gm Q15M PRN PO DECREASED GLUCOSE; Start 03/15/18 at 13:30 Glucose (Glutose) 22.5 gm Q15M PRN PO DECREASED GLUCOSE; Start 03/15/18 at 13:30 Dextrose (D50w Syringe) 25 ml Q15M PRN IV DECREASED GLUCOSE; Start 03/15/18 at 13:30 Dextrose (D50w Syringe) 50 ml Q15M PRN IV DECREASED GLUCOSE; Start 03/15/18 at 13:30 Glucagon (Glucagen) 1 mg Q15M PRN IM DECREASED GLUCOSE; Start 03/15/18 at 13:30 Glucose (Glutose) 15 gm Q15M PRN BUCCAL DECREASED GLUCOSE; Start 03/15/18 at 13:30 Insulin Aspart (Novolog Insulin Pen) (Adult SC Insulin - Mild Algorithm)... AC MEALS AND BEDTIME SC ; Start 03/15/18 at 17:35 Diagnostic Test (Pha) (Accu-Chek) 1 ea 02 XX ; Start 03/16/18 at 02:00 Tamsulosin HCl (Flomax) 0.4 mg HS PO Last administered on 03/19/18at 20:48; Admin Dose 0.4 MG; Start 03/16/18 at 21:00 Amlodipine Besylate (Norvasc) 5 mg DAILY PO Last administered on 03/20/18at 08:39; Admin Dose 5 MG; Start 03/16/18 at 15:00 Albuterol (Proventil 0.083% (Neb)) 2.5 mg Q6H RESP THERAPY HHN Last administered on 03/20/18at 02:25; Admin Dose 2.5 MG; Start 03/17/18 at 15:00 Pantoprazole (Protonix Tab) 40 mg BID@0600,1800 PO Last administered on 03/20/18at 05:52; Admin Dose 40 MG; Start 03/18/18 at 18:00 Dextrose/Sodium Chloride 1,000 ml @ 70 mls/hr [id number] IV Last administered on 03/19/18at 08:30; Admin Dose 40 MLS/HR; Start 03/19/18 at 07:30 Sodium Bicarbonate (Sodium Bicarbonate Tab) 1,300 mg TID PO Last administered on 03/20/18at 08:40; Admin Dose 1,300 MG; Start 03/19/18 at 21:00 JOHANNE AGRAWAL M.D. Mar 20, 2018 08:58
[2018-03-20 14:27] VITALS: BP 145/67; PULSE 84; RESP 22
--- NOTE | 2018-03-20 14:46 | CONS ---
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 Melena Recc: -s/p endoscopy without complications -Continue norvasc -would resume baseline BB -Losartan Held in setting of ? renal failure -continue flagyl/Vanc and f/u cx data Result Diagram: 03/20/18 0812 03/20/18 0812 Results 24hrs Laboratory Tests Test 03/19/18 17:18 03/19/18 20:45 03/20/18 07:50 03/20/18 08:12 Bedside Glucose 110 112 104 White Blood Count 7.2 Red Blood Count 3.34 L Hemoglobin 10.5 L Hematocrit 32.0 L Mean Corpuscular 95.8 Volume Mean Corpuscular 31.4 Hemoglobin Mean Corpuscular 32.8 Hemoglobin Concent Red Cell 16.0 H Distribution Width Platelet Count 232 Mean Platelet Volume 8.9 Immature 0.300 Granulocytes % Neutrophils % 66.6 Lymphocytes % 20.4 Monocytes % 9.5 Eosinophils % 2.8 Basophils % 0.4 Nucleated Red Blood 0.0 Cells % Immature 0.020 Granulocytes # Neutrophils # 4.8 Lymphocytes # 1.5 Monocytes # 0.7 Eosinophils # 0.2 Basophils # 0.0 Nucleated Red Blood 0.0 Cells # Sodium Level 145 H Potassium Level 3.8 Chloride Level 116 H Carbon Dioxide Level 16 L Anion Gap 13 Blood Urea Nitrogen 15 Creatinine 1.46 H Est Glomerular Filtrat Rate mL/min Glucose Level 100 Calcium Level 8.7 Phosphorus Level 3.1 Magnesium Level 1.9 Test 03/20/18 12:15 Bedside Glucose 112 Consultation Date/Type/Reason Admit Date/Time Mar 13, 2018 at 15:43 Initial Consult Date 03/14/18 Type of Consult cardiology Reason for Consultation Preop Requesting Provider: SMITH MATSON MD Exam/Review of Systems Vital Signs Vitals Vital Signs Date Temp Pulse Resp B/P (MAP) Pulse Ox O2 O2 Flow FiO2 Time Delivery Rate 03/20/18 98.5 84 22 145/67 98 14:27 (93) 03/20/18 21 13:27 03/19/18 Room Air 17:02 Intake and Output 03/19/18 03/19/18 03/20/18 1414:59 22:59 06:59 IntakeIntake Total 100 ml 800 ml 200 ml BalanceBalance 100 ml 800 ml 200 ml Exam Review of Systems: CONSTITUTIONAL: No fevers, chills. PULMONARY: No sob CARDIOVASCULAR: No chest pain/palpitations GASTROINTESTINAL: No nausea/vomiting. GENITOURINARY: No hematuria/dysuria. MUSCULOSKELETAL: No myagias/arthalgias. PSYCHIATRIC: The patient denies depression. NEUROLOGIC: No weakness Constitutional: alert, oriented Psych: no complaints Head: normocephalic ENMT: mucosa pink and moist Neck: supple, jvd (9 cm water) Respiratory: diminished breath sounds Cardiovascular: regular rate and rhythm Gastrointestinal: soft, non-tender Musculoskeletal: muscle tone (normal) Extremities: edema (none) Neurological: other (No focal deficits) Medications Medications Current Medications Ondansetron HCl (Zofran Inj) 4 mg Q6H PRN IV NAUSEA AND/OR VOMITING; Start 03/13/18 at 19:00 Acetaminophen (Tylenol Tab) 650 mg Q6H PRN PO MILD PAIN(1-3)OR ELEVATED TEMP; Start 03/13/18 at 19:00 Metronidazole 100 ml @ 100 mls/hr Q8 IVPB Last administered on 03/20/18at 13:19; Admin Dose 100 MLS/HR; Start 03/13/18 at 22:00 Hydralazine HCl (Apresoline) 5 mg Q8 PRN IV sbp>160 Last administered on 03/16/18at 23:39; Admin Dose 5 MG; Start 03/14/18 at 16:30 Vancomycin HCl (Vancomycin Oral Syringe) 125 mg Q6 PO Last administered on 03/20/18at 12:10; Admin Dose 125 MG; Start 03/15/18 at 13:30 Miscellaneous Information 1 ea NOTE XX ; Start 03/15/18 at 13:30 Glucose (Glutose) 15 gm Q15M PRN PO DECREASED GLUCOSE; Start 03/15/18 at 13:30 Glucose (Glutose) 22.5 gm Q15M PRN PO DECREASED GLUCOSE; Start 03/15/18 at 13:30 Dextrose (D50w Syringe) 25 ml Q15M PRN IV DECREASED GLUCOSE; Start 03/15/18 at 13:30 Dextrose (D50w Syringe) 50 ml Q15M PRN IV DECREASED GLUCOSE; Start 03/15/18 at 13:30 Glucagon (Glucagen) 1 mg Q15M PRN IM DECREASED GLUCOSE; Start 03/15/18 at 13:30 Glucose (Glutose) 15 gm Q15M PRN BUCCAL DECREASED GLUCOSE; Start 03/15/18 at 13:30 Insulin Aspart (Novolog Insulin Pen) (Adult SC Insulin - Mild Algorithm)... AC MEALS AND BEDTIME SC ; Start 03/15/18 at 17:35 Diagnostic Test (Pha) (Accu-Chek) 1 ea 02 XX ; Start 03/16/18 at 02:00 Tamsulosin HCl (Flomax) 0.4 mg HS PO Last administered on 03/19/18at 20:48; Admin Dose 0.4 MG; Start 03/16/18 at 21:00 Amlodipine Besylate (Norvasc) 5 mg DAILY PO Last administered on 03/20/18at 08:39; Admin Dose 5 MG; Start 03/16/18 at 15:00 Albuterol (Proventil 0.083% (Neb)) 2.5 mg Q6H RESP THERAPY HHN Last administered on 03/20/18at 13:27; Admin Dose 2.5 MG; Start 03/17/18 at 15:00 Pantoprazole (Protonix Tab) 40 mg BID@0600,1800 PO Last administered on 03/20/18at 05:52; Admin Dose 40 MG; Start 03/18/18 at 18:00 Dextrose/Sodium Chloride 1,000 ml @ 70 mls/hr [id number] IV Last administered on 03/19/18at 08:30; Admin Dose 40 MLS/HR; Start 03/19/18 at 07:30 Sodium Bicarbonate (Sodium Bicarbonate Tab) 1,300 mg TID PO Last administered on 03/20/18at 12:07; Admin Dose 1,300 MG; Start 03/19/18 at 21:00 CARLIE JEAN BAPTISTE Mar 20, 2018 14:46
--- NOTE | 2018-03-20 14:52 | PN ---
Date/Time of Note Date/Time of Note DATE: 03/20/18 TIME: 14:49 Assessment/Plan VTE Prophylaxis Risk score (from Ns)>0 risk: 5 SCD applied (from Ns): Yes Pharmacological prophylaxis: NA/contraindicated Pharm contraindication: low risk/ambulating Lines/Catheters [facility] Saline Lock Urinary Cath still in place: No Assessment/Plan Hospital Course 82 y/o with 1. abd pain with CT diverticulitis , partial obstruction on CT scan 2. diverticulites 3. hx stage IV colon cancer on chemo gi 4. History of hypertension. 5. History of dyslipidemia. 6. History of coronary artery bypass graft. 7. History of aortic stenosis. 8. History of mitral valve repair. 9. Osteoarthritis. 10. Diabetes mellitus. 11. BPH. 12 Diarrhoea ? chemo + C diff now with black stool> r/o GI bleed s/p EGD with AVM s/p cautery 13 SARA vs SARA on CKD 14 Non gap acidosis likley due to diarrhoea imptoving Plan -montior diarrhoea - Hb stable - Will ask GI if ok to start ASA/plavix - xray for cough - cw na bicarb - iv fluids - full liwuids> advance as tolerated - cw PPI bid -- Cw Vancomycin/flagyl - f/u oncology as OPD post dc Result Diagram: 03/20/18 0812 03/20/18 0812 Results 24hrs Laboratory Tests Test 03/19/18 17:18 03/19/18 20:45 03/20/18 07:50 03/20/18 08:12 Bedside Glucose 110 112 104 White Blood Count 7.2 Red Blood Count 3.34 L Hemoglobin 10.5 L Hematocrit 32.0 L Mean Corpuscular 95.8 Volume Mean Corpuscular 31.4 Hemoglobin Mean Corpuscular 32.8 Hemoglobin Concent Red Cell 16.0 H Distribution Width Platelet Count 232 Mean Platelet Volume 8.9 Immature 0.300 Granulocytes % Neutrophils % 66.6 Lymphocytes % 20.4 Monocytes % 9.5 Eosinophils % 2.8 Basophils % 0.4 Nucleated Red Blood 0.0 Cells % Immature 0.020 Granulocytes # Neutrophils # 4.8 Lymphocytes # 1.5 Monocytes # 0.7 Eosinophils # 0.2 Basophils # 0.0 Nucleated Red Blood 0.0 Cells # Sodium Level 145 H Potassium Level 3.8 Chloride Level 116 H Carbon Dioxide Level 16 L Anion Gap 13 Blood Urea Nitrogen 15 Creatinine 1.46 H Est Glomerular Filtrat Rate mL/min Glucose Level 100 Calcium Level 8.7 Phosphorus Level 3.1 Magnesium Level 1.9 Test 03/20/18 12:15 Bedside Glucose 112 Subjective 24 Hr Interval Summary Free Text/Dictation This post EGD yesterday which showed AVM status post cautery he had 2 large bowel movements today He has been coughing today Exam/Review of Systems Vital Signs Vitals Vital Signs Date Temp Pulse Resp B/P (MAP) Pulse Ox O2 O2 Flow FiO2 Time Delivery Rate 03/20/18 98.5 84 22 145/67 98 14:27 (93) 03/20/18 21 13:27 03/19/18 Room Air 17:02 Intake and Output 03/19/18 03/19/18 03/20/18 1515:00 23:00 07:00 IntakeIntake Total 100 ml 800 ml 200 ml BalanceBalance 100 ml 800 ml 200 ml Exam Exam Respiratory: dec breath sounds bases Cardiovascular: regular rate and rhythm Gastrointestinal: soft Musculoskeletal: nl extremities to inspection Extremities: normal pulses Medications Medications Medications Current Medications Ondansetron HCl (Zofran Inj) 4 mg Q6H PRN IV NAUSEA AND/OR VOMITING; Start 03/13/18 at 19:00 Acetaminophen (Tylenol Tab) 650 mg Q6H PRN PO MILD PAIN(1-3)OR ELEVATED TEMP; Start 03/13/18 at 19:00 Metronidazole 100 ml @ 100 mls/hr Q8 IVPB Last administered on 03/20/18at 13:19; Admin Dose 100 MLS/HR; Start 03/13/18 at 22:00 Hydralazine HCl (Apresoline) 5 mg Q8 PRN IV sbp>160 Last administered on 03/16/18at 23:39; Admin Dose 5 MG; Start 03/14/18 at 16:30 Vancomycin HCl (Vancomycin Oral Syringe) 125 mg Q6 PO Last administered on 03/20/18at 12:10; Admin Dose 125 MG; Start 03/15/18 at 13:30 Miscellaneous Information 1 ea NOTE XX ; Start 03/15/18 at 13:30 Glucose (Glutose) 15 gm Q15M PRN PO DECREASED GLUCOSE; Start 03/15/18 at 13:30 Glucose (Glutose) 22.5 gm Q15M PRN PO DECREASED GLUCOSE; Start 03/15/18 at 13:30 Dextrose (D50w Syringe) 25 ml Q15M PRN IV DECREASED GLUCOSE; Start 03/15/18 at 13:30 Dextrose (D50w Syringe) 50 ml Q15M PRN IV DECREASED GLUCOSE; Start 03/15/18 at 13:30 Glucagon (Glucagen) 1 mg Q15M PRN IM DECREASED GLUCOSE; Start 03/15/18 at 13:30 Glucose (Glutose) 15 gm Q15M PRN BUCCAL DECREASED GLUCOSE; Start 03/15/18 at 13:30 Insulin Aspart (Novolog Insulin Pen) (Adult SC Insulin - Mild Algorithm)... AC MEALS AND BEDTIME SC ; Start 03/15/18 at 17:35 Diagnostic Test (Pha) (Accu-Chek) 1 ea 02 XX ; Start 03/16/18 at 02:00 Tamsulosin HCl (Flomax) 0.4 mg HS PO Last administered on 03/19/18at 20:48; Admin Dose 0.4 MG; Start 03/16/18 at 21:00 Amlodipine Besylate (Norvasc) 5 mg DAILY PO Last administered on 03/20/18at 08:39; Admin Dose 5 MG; Start 03/16/18 at 15:00 Albuterol (Proventil 0.083% (Neb)) 2.5 mg Q6H RESP THERAPY HHN Last administered on 03/20/18at 13:27; Admin Dose 2.5 MG; Start 03/17/18 at 15:00 Pantoprazole (Protonix Tab) 40 mg BID@0600,1800 PO Last administered on 03/20/18at 05:52; Admin Dose 40 MG; Start 03/18/18 at 18:00 Dextrose/Sodium Chloride 1,000 ml @ 40 mls/hr Q24H IV Last administered on 03/19/18 08:30; Admin Dose 40 MLS/HR; Start 03/19/18 at 07:30 Sodium Bicarbonate (Sodium Bicarbonate Tab) 1,300 mg TID PO Last administered on 03/20/18at 12:07; Admin Dose 1,300 MG; Start 03/19/18 at 21:00 CARLOS ARTHUR MD Mar 20, 2018 14:52
[2018-03-20] MEDS ORDERED: GUAIFENESIN/CODEINE 5ML CUP PO PRN (15:00)
--- NOTE | 2018-03-20 17:38 | PN ---
Date/Time of Note Date/Time of Note DATE: 03/20/18 TIME: 17:20 Assessment/Plan VTE Prophylaxis Risk score (from Ns)>0 risk: 5 SCD applied (from Ns): Yes Pharmacological prophylaxis: other (scds) Lines/Catheters IV Catheter Type (from [facility]): Saline Lock Urinary Cath still in place: No Assessment/Plan Hospital Course Assessment/Plan Assessment: Melena -EGD 03/19/18 Gastric AVM status post cautery Diverticulitis C. difficile colitis Abdominal pain 2/2 to above Stage IV Colon cancer - per family dx 8 months -Currently on chemotherapy Hepatic lesion 1.1cm, worrisome for metastatic lesion on imaging DM Hypertension CAD Aortic stenosis History of MVR Osteoarthritis BPH Plan: Advance diet as tolerated Ok to restart Plavix/ASA Monitor for overt signs of GI bleed Monitor labs Spoke to patients daughter Radha -update given on father condition from GI point of view Patient seen in collaboration with Dr. Laguerre/Manolo Subjective: Pt currently sitting up in chair, at bedside. No over night events, no further episodes of melena HGB stable. PHYSICAL EXAMINATION: GENERAL: Well developed, well nourished, alert & oriented x 3, in no acute distress SKIN: No lesions.. EYES: Pupils equal reactive to light, no discharge. EARS/NOSE AND THROAT: Ears normal, nose normal, oropharynx normal. NECK: Supple, no masses, thyroid normal, JVP within normal limits, carotids normal without bruits. CHEST: Inspection within normal limits. CARDIOVASCULAR: Heart: Regular rate and rhythm. RESPIRATORY: diminished GASTROINTESTINAL AND LIVER: Abdomen: Soft, obese, non tenderness, non-distended, no hernias, no masses, no organomegaly, no ascites, no guarding, no rebound tenderness, normoactive bowel sounds. Rectal: Deferred. GENITOURINARY: Male genitalia within normal limits. EXTREMITIES: No cyanosis, clubbing or edema. Result Diagram: 03/20/18 0812 03/20/18 0812 Results 24hrs Laboratory Tests Test 03/19/18 20:45 03/20/18 07:50 03/20/18 08:12 03/20/18 12:15 Bedside Glucose 112 104 112 White Blood Count 7.2 Red Blood Count 3.34 L Hemoglobin 10.5 L Hematocrit 32.0 L Mean Corpuscular 95.8 Volume Mean Corpuscular 31.4 Hemoglobin Mean Corpuscular 32.8 Hemoglobin Concent Red Cell 16.0 H Distribution Width Platelet Count 232 Mean Platelet Volume 8.9 Immature 0.300 Granulocytes % Neutrophils % 66.6 Lymphocytes % 20.4 Monocytes % 9.5 Eosinophils % 2.8 Basophils % 0.4 Nucleated Red Blood 0.0 Cells % Immature 0.020 Granulocytes # Neutrophils # 4.8 Lymphocytes # 1.5 Monocytes # 0.7 Eosinophils # 0.2 Basophils # 0.0 Nucleated Red Blood 0.0 Cells # Sodium Level 145 H Potassium Level 3.8 Chloride Level 116 H Carbon Dioxide Level 16 L Anion Gap 13 Blood Urea Nitrogen 15 Creatinine 1.46 H Est Glomerular Filtrat Rate mL/min Glucose Level 100 Calcium Level 8.7 Phosphorus Level 3.1 Magnesium Level 1.9 Exam/Review of Systems Vital Signs Vitals Vital Signs Date Temp Pulse Resp B/P (MAP) Pulse Ox O2 O2 Flow FiO2 Time Delivery Rate 03/20/18 98.5 84 22 145/67 98 14:27 (93) 03/20/18 21 13:27 03/19/18 Room Air 17:02 Intake and Output 03/19/18 03/19/18 03/20/18 1515:00 23:00 07:00 IntakeIntake Total 100 ml 800 ml 200 ml BalanceBalance 100 ml 800 ml 200 ml Medications Medications Current Medications Ondansetron HCl (Zofran Inj) 4 mg Q6H PRN IV NAUSEA AND/OR VOMITING; Start 03/13/18 at 19:00 Acetaminophen (Tylenol Tab) 650 mg Q6H PRN PO MILD PAIN(1-3)OR ELEVATED TEMP; Start 03/13/18 at 19:00 Metronidazole 100 ml @ 100 mls/hr Q8 IVPB Last administered on 03/20/18at 13:19; Admin Dose 100 MLS/HR; Start 03/13/18 at 22:00 Hydralazine HCl (Apresoline) 5 mg Q8 PRN IV sbp>160 Last administered on 03/16/18at 23:39; Admin Dose 5 MG; Start 03/14/18 at 16:30 Vancomycin HCl (Vancomycin Oral Syringe) 125 mg Q6 PO Last administered on 03/20/18at 12:10; Admin Dose 125 MG; Start 03/15/18 at 13:30 Miscellaneous Information 1 ea NOTE XX ; Start 03/15/18 at 13:30 Glucose (Glutose) 15 gm Q15M PRN PO DECREASED GLUCOSE; Start 03/15/18 at 13:30 Glucose (Glutose) 22.5 gm Q15M PRN PO DECREASED GLUCOSE; Start 03/15/18 at 13:30 Dextrose (D50w Syringe) 25 ml Q15M PRN IV DECREASED GLUCOSE; Start 03/15/18 at 13:30 Dextrose (D50w Syringe) 50 ml Q15M PRN IV DECREASED GLUCOSE; Start 03/15/18 at 13:30 Glucagon (Glucagen) 1 mg Q15M PRN IM DECREASED GLUCOSE; Start 03/15/18 at 13:30 Glucose (Glutose) 15 gm Q15M PRN BUCCAL DECREASED GLUCOSE; Start 03/15/18 at 13:30 Insulin Aspart (Novolog Insulin Pen) (Adult SC Insulin - Mild Algorithm)... AC MEALS AND BEDTIME SC ; Start 03/15/18 at 17:35 Diagnostic Test (Pha) (Accu-Chek) 1 ea 02 XX ; Start 03/16/18 at 02:00 Tamsulosin HCl (Flomax) 0.4 mg HS PO Last administered on 03/19/18at 20:48; Admin Dose 0.4 MG; Start 03/16/18 at 21:00 Amlodipine Besylate (Norvasc) 5 mg DAILY PO Last administered on 03/20/18at 08:39; Admin Dose 5 MG; Start 03/16/18 at 15:00 Albuterol (Proventil 0.083% (Neb)) 2.5 mg Q6H RESP THERAPY HHN Last administered on 03/20/18at 13:27; Admin Dose 2.5 MG; Start 03/17/18 at 15:00 Pantoprazole (Protonix Tab) 40 mg BID@0600,1800 PO Last administered on 03/20/18at 05:52; Admin Dose 40 MG; Start 03/18/18 at 18:00 Dextrose/Sodium Chloride 1,000 ml @ 40 mls/hr Q24H IV Last administered on 03/20/18at 15:36; Admin Dose 40 MLS/HR; Start 03/19/18 at 07:30 Sodium Bicarbonate (Sodium Bicarbonate Tab) 1,300 mg TID PO Last administered on 03/20/18at 12:07; Admin Dose 1,300 MG; Start 03/19/18 at 21:00 Guaifenesin/ Codeine Phosphate (Robitussin Ac Liquid Cup) 10 ml Q4H PRN PO COUGH; Start 03/20/18 at 15:00 SILVINA XIAO Mar 20, 2018 17:30
[2018-03-20 20:00] VITALS: BP 186/92; PULSE 132; RESP 19
[2018-03-20 20:30] VITALS: BP_SYST 155; BP_SYST 165; BP_DIAS 73; PULSE 103
[2018-03-20] MEDS: TAMSULOSIN (SR) 0.4 MG CAP PO SCH (20:42)
[2018-03-21] MEDS: VANCOMYCIN HCL 250 MG/5ML POSYG PO SCH ×5 (00:06→23:57)
[2018-03-21] MEDS: ALBUTEROL 0.083% (NEB) 2.5 MG/3 ML AMP HHN SCH ×5 (01:14→21:01)
[2018-03-21 02:00] VITALS: BP 140/58; PULSE 80; RESP 19
[2018-03-21] MEDS: ACCUCHECK AT 2AM (Patients on SS coverage) XX SCH (02:00)
[2018-03-21 08:03] VITALS: BP 146/67; PULSE 80; RESP 20
[2018-03-21] MEDS: Insulin NOVOLOG SS MILD Algorithm (SS with meals and bedtime) SC SCH ×4 (08:47→20:13)
[2018-03-21] MEDS: PANTOPRAZOLE (EC) 40 MG TAB PO SCH (08:56)
[2018-03-21] MEDS: NA BICARBONATE 650 MG TAB PO SCH ×2 (08:56→12:29)
[2018-03-21] MEDS: AMLODIPINE 5 MG TAB PO SCH (08:56)
[2018-03-21] MEDS: CLOPIDOGREL 75 MG TAB PO SCH (10:14)
[2018-03-21] MEDS: ASPIRIN (EC) 81 MG TAB PO SCH (10:15)
--- NOTE | 2018-03-21 13:09 | CONS ---
Date/Time of Note Date/Time of Note DATE: 03/21/18 TIME: 13:06 Assessment/Plan Assessment/Plan Assessment/Plan #STAGE IV colon CA -pt currently under treatment with Dr. Vang -once the C diff resolves, pt can resume treatment #melena -HG stable- Hgb 10.6 today -EGD demonstrated gastritis -continue pantoprazole #Cdiff -continue FLagyl -continue current diet #HTN -continue current hypertensive medications A total of 40 minutes of face to face time was spent speaking with the patient/ , of which greater than 50% was spent in counseling and coordination of care and the detailed question and answer session. Dw staff Result Diagram: 03/21/18 0523 03/20/18 0812 Results 24hrs Laboratory Tests Test 03/20/18 17:46 03/20/18 20:40 03/21/18 05:23 03/21/18 07:54 Bedside Glucose 128 132 138 White Blood Count 6.1 Red Blood Count 3.33 L Hemoglobin 10.6 L Hematocrit 32.1 L Mean Corpuscular 96.4 Volume Mean Corpuscular 31.8 Hemoglobin Mean Corpuscular 33.0 Hemoglobin Concent Red Cell 16.1 H Distribution Width Platelet Count 224 Mean Platelet Volume 8.9 Immature 0.500 H Granulocytes % Neutrophils % 62.3 Lymphocytes % 23.0 Monocytes % 12.7 H Eosinophils % 1.0 Basophils % 0.5 Nucleated Red Blood 0.0 Cells % Immature 0.030 Granulocytes # Neutrophils # 3.8 Lymphocytes # 1.4 Monocytes # 0.8 Eosinophils # 0.1 Basophils # 0.0 Nucleated Red Blood 0.0 Cells # Test 03/21/18 12:18 Bedside Glucose 123 Consultation Date/Type/Reason Admit Date/Time Mar 13, 2018 at 3:43 pm Initial Consult Date 03/14/18 Type of Consult ONCOLOGY Requesting Provider: SMITH MATSON MD 24 HR Interval Summary Free Text/Dictation sitting up in chair - feels better - no bloody stool reported - Diarrhea improving - family at bed side- all Qs answered - no new events reported last night Detailed Summary Eyes: no complaints ENT: no complaints Respiratory: no complaints Cardiovascular: no complaints Gastrointestinal: no complaints Genitourinary: no complaints Musculoskeletal: no complaints Skin: no complaints Neurologic: no complaints Endocrine: no complaints Lymphatic: no complaints Psychological: nl mood/affect Exam/Review of Systems Vital Signs Vitals Vital Signs Date Temp Pulse Resp B/P (MAP) Pulse Ox O2 O2 Flow FiO2 Time Delivery Rate 03/21/18 73 20 98 21 12:51 03/21/18 98.2 146/67 Room Air 08:03 (93) 03/21/18 2.0 04:26 Intake and Output 03/20/18 03/20/18 03/21/18 1515:00 23:00 07:00 IntakeIntake Total 720 ml 160 ml 580 ml BalanceBalance 720 ml 160 ml 580 ml Exam - pt still with diarrhea but no of black stool - sp EGD that demonstrated gastritis no new events reported last night Constitutional: alert, well developed Psych: nl mood/affect Head: normocephalic Eyes: EOMI, nl lids, nl sclera ENMT: nl external ears & nose Neck: non-tender Respiratory: diminished breath sounds (at bases bilaterally) Cardiovascular: nl pulses, other (s1s2) Gastrointestinal: soft, tender (diffuse) Musculoskeletal: muscle weakness Extremities: normal pulses Neurological: nl speech Skin: other (alert/awake) Lymph: nontender Medications Medications Current Medications Ondansetron HCl (Zofran Inj) 4 mg Q6H PRN IV NAUSEA AND/OR VOMITING; Start 03/13/18 at 19:00 Acetaminophen (Tylenol Tab) 650 mg Q6H PRN PO MILD PAIN(1-3)OR ELEVATED TEMP; Start 03/13/18 at 19:00 Hydralazine HCl (Apresoline) 5 mg Q8 PRN IV sbp>160 Last administered on 03/16/18at 23:39; Admin Dose 5 MG; Start 03/14/18 at 16:30 Vancomycin HCl (Vancomycin Oral Syringe) 125 mg Q6 PO Last administered on 03/21/18at 12:29; Admin Dose 125 MG; Start 03/15/18 at 13:30 Miscellaneous Information 1 ea NOTE XX ; Start 03/15/18 at 13:30 Glucose (Glutose) 15 gm Q15M PRN PO DECREASED GLUCOSE; Start 03/15/18 at 13:30 Glucose (Glutose) 22.5 gm Q15M PRN PO DECREASED GLUCOSE; Start 03/15/18 at 13:30 Dextrose (D50w Syringe) 25 ml Q15M PRN IV DECREASED GLUCOSE; Start 03/15/18 at 13:30 Dextrose (D50w Syringe) 50 ml Q15M PRN IV DECREASED GLUCOSE; Start 03/15/18 at 13:30 Glucagon (Glucagen) 1 mg Q15M PRN IM DECREASED GLUCOSE; Start 03/15/18 at 13:30 Glucose (Glutose) 15 gm Q15M PRN BUCCAL DECREASED GLUCOSE; Start 03/15/18 at 13:30 Insulin Aspart (Novolog Insulin Pen) (Adult SC Insulin - Mild Algorithm)... AC MEALS AND BEDTIME SC ; Start 03/15/18 at 17:35 Diagnostic Test (Pha) (Accu-Chek) 1 ea 02 XX ; Start 03/16/18 at 02:00 Tamsulosin HCl (Flomax) 0.4 mg HS PO Last administered on 03/20/18at 20:42; Admin Dose 0.4 MG; Start 03/16/18 at 21:00 Amlodipine Besylate (Norvasc) 5 mg DAILY PO Last administered on 03/21/18at 08:56; Admin Dose 5 MG; Start 03/16/18 at 15:00 Albuterol (Proventil 0.083% (Neb)) 2.5 mg Q6H RESP THERAPY HHN Last administered on 03/21/18at 12:51; Admin Dose 2.5 MG; Start 03/17/18 at 15:00 Sodium Bicarbonate (Sodium Bicarbonate Tab) 1,300 mg TID PO Last administered on 03/21/18at 12:29; Admin Dose 1,300 MG; Start 03/19/18 at 21:00 Guaifenesin/ Codeine Phosphate (Robitussin Ac Liquid Cup) 10 ml Q4H PRN PO COUGH; Start 03/20/18 at 15:00 Pantoprazole (Protonix Tab) 40 mg DAILY PO Last administered on 03/21/18at 08:56; Admin Dose 40 MG; Start 03/21/18 at 09:00 Aspirin (Halfprin) 81 mg DAILY PO Last administered on 03/21/18at 10:15; Admin Dose 81 MG; Start 03/21/18 at 10:00 Clopidogrel Bisulfate (plaVIX) 75 mg DAILY PO Last administered on 03/21/18at 10:14; Admin Dose 75 MG; Start 03/21/18 at 10:00 YARITZA LEACH Mar 21, 2018 1:09 pm
--- NOTE | 2018-03-21 13:20 | PN ---
Date/Time of Note Date/Time of Note DATE: 03/21/18 TIME: 13:16 Assessment/Plan VTE Prophylaxis Risk score (from Ns)>0 risk: 7 SCD applied (from Ns): Yes Pharmacological prophylaxis: other (scds) Lines/Catheters IV Catheter Type (from [facility]): Peripheral IV Urinary Cath still in place: No Assessment/Plan Hospital Course Assessment/Plan Assessment: Melena -EGD 03/19/18 Gastric AVM status post cautery Diverticulitis C. difficile colitis Abdominal pain 2/2 to above Stage IV Colon cancer - per family dx 8 months -Currently on chemotherapy Hepatic lesion 1.1cm, worrisome for metastatic lesion on imaging DM Hypertension CAD Aortic stenosis History of MVR Osteoarthritis BPH Plan: Diabetic diet Patient has restarted Plavix/ASA Monitor for overt signs of GI bleed Monitor labs D/c planning per hospitalist Patient seen in collaboration with Dr. Laguerre/Manolo Subjective: No over night events, pt started Plavix/ASA today HGB stable thus far, no evidence of GI bleed. If patient remains stable, appears safe for out-pt management PHYSICAL EXAMINATION: GENERAL: Well developed, well nourished, alert & oriented x 3, in no acute distress SKIN: No lesions.. EYES: Pupils equal reactive to light, no discharge. EARS/NOSE AND THROAT: Ears normal, nose normal, oropharynx normal. NECK: Supple, no masses, thyroid normal, JVP within normal limits, carotids normal without bruits. CHEST: Inspection within normal limits. CARDIOVASCULAR: Heart: Regular rate and rhythm. RESPIRATORY: diminished GASTROINTESTINAL AND LIVER: Abdomen: Soft, obese, non tenderness, non-distended, no hernias, no masses, no organomegaly, no ascites, no guarding, no rebound tenderness, normoactive bowel sounds. Rectal: Deferred. GENITOURINARY: Male genitalia within normal limits. EXTREMITIES: No cyanosis, clubbing or edema. Result Diagram: 03/21/18 0523 03/20/18 0812 Results 24hrs Laboratory Tests Test 03/20/18 17:46 03/20/18 20:40 03/21/18 05:23 03/21/18 07:54 Bedside Glucose 128 132 138 White Blood Count 6.1 Red Blood Count 3.33 L Hemoglobin 10.6 L Hematocrit 32.1 L Mean Corpuscular 96.4 Volume Mean Corpuscular 31.8 Hemoglobin Mean Corpuscular 33.0 Hemoglobin Concent Red Cell 16.1 H Distribution Width Platelet Count 224 Mean Platelet Volume 8.9 Immature 0.500 H Granulocytes % Neutrophils % 62.3 Lymphocytes % 23.0 Monocytes % 12.7 H Eosinophils % 1.0 Basophils % 0.5 Nucleated Red Blood 0.0 Cells % Immature 0.030 Granulocytes # Neutrophils # 3.8 Lymphocytes # 1.4 Monocytes # 0.8 Eosinophils # 0.1 Basophils # 0.0 Nucleated Red Blood 0.0 Cells # Test 03/21/18 12:18 Bedside Glucose 123 Exam/Review of Systems Vital Signs Vitals Vital Signs Date Temp Pulse Resp B/P (MAP) Pulse Ox O2 O2 Flow FiO2 Time Delivery Rate 03/21/18 73 20 98 21 12:51 03/21/18 98.2 146/67 Room Air 08:03 (93) 03/21/18 2.0 04:26 Intake and Output 03/20/18 03/20/18 03/21/18 1515:00 23:00 07:00 IntakeIntake Total 720 ml 160 ml 580 ml BalanceBalance 720 ml 160 ml 580 ml Medications Medications Current Medications Ondansetron HCl (Zofran Inj) 4 mg Q6H PRN IV NAUSEA AND/OR VOMITING; Start 03/13/18 at 19:00 Acetaminophen (Tylenol Tab) 650 mg Q6H PRN PO MILD PAIN(1-3)OR ELEVATED TEMP; Start 03/13/18 at 19:00 Hydralazine HCl (Apresoline) 5 mg Q8 PRN IV sbp>160 Last administered on 03/16/18at 23:39; Admin Dose 5 MG; Start 03/14/18 at 16:30 Vancomycin HCl (Vancomycin Oral Syringe) 125 mg Q6 PO Last administered on 03/21/18at 12:29; Admin Dose 125 MG; Start 03/15/18 at 13:30 Miscellaneous Information 1 ea NOTE XX ; Start 03/15/18 at 13:30 Glucose (Glutose) 15 gm Q15M PRN PO DECREASED GLUCOSE; Start 03/15/18 at 13:30 Glucose (Glutose) 22.5 gm Q15M PRN PO DECREASED GLUCOSE; Start 03/15/18 at 13:30 Dextrose (D50w Syringe) 25 ml Q15M PRN IV DECREASED GLUCOSE; Start 03/15/18 at 13:30 Dextrose (D50w Syringe) 50 ml Q15M PRN IV DECREASED GLUCOSE; Start 03/15/18 at 13:30 Glucagon (Glucagen) 1 mg Q15M PRN IM DECREASED GLUCOSE; Start 03/15/18 at 13:30 Glucose (Glutose) 15 gm Q15M PRN BUCCAL DECREASED GLUCOSE; Start 03/15/18 at 13:30 Insulin Aspart (Novolog Insulin Pen) (Adult SC Insulin - Mild Algorithm)... AC MEALS AND BEDTIME SC ; Start 03/15/18 at 17:35 Diagnostic Test (Pha) (Accu-Chek) 1 ea 02 XX ; Start 03/16/18 at 02:00 Tamsulosin HCl (Flomax) 0.4 mg HS PO Last administered on 03/20/18at 20:42; Admin Dose 0.4 MG; Start 03/16/18 at 21:00 Amlodipine Besylate (Norvasc) 5 mg DAILY PO Last administered on 03/21/18at 08:56; Admin Dose 5 MG; Start 03/16/18 at 15:00 Albuterol (Proventil 0.083% (Neb)) 2.5 mg Q6H RESP THERAPY HHN Last administered on 03/21/18at 12:51; Admin Dose 2.5 MG; Start 03/17/18 at 15:00 Sodium Bicarbonate (Sodium Bicarbonate Tab) 1,300 mg TID PO Last administered on 03/21/18at 12:29; Admin Dose 1,300 MG; Start 03/19/18 at 21:00 Guaifenesin/ Codeine Phosphate (Robitussin Ac Liquid Cup) 10 ml Q4H PRN PO COUGH; Start 03/20/18 at 15:00 Pantoprazole (Protonix Tab) 40 mg DAILY PO Last administered on 03/21/18at 08:56; Admin Dose 40 MG; Start 03/21/18 at 09:00 Aspirin (Halfprin) 81 mg DAILY PO Last administered on 03/21/18at 10:15; Admin Dose 81 MG; Start 03/21/18 at 10:00 Clopidogrel Bisulfate (plaVIX) 75 mg DAILY PO Last administered on 03/21/18at 10:14; Admin Dose 75 MG; Start 03/21/18 at 10:00 SILVINA XIAO Mar 21, 2018 13:19
[2018-03-21 14:31] VITALS: BP 140/66; PULSE 82; RESP 20
--- NOTE | 2018-03-21 15:28 | PN ---
Date/Time of Note Date/Time of Note DATE: 03/21/18 TIME: 15:26 Assessment/Plan VTE Prophylaxis Risk score (from Ns)>0 risk: 7 [place] [facility] Yes Pharmacological prophylaxis: NA/contraindicated Pharm contraindication: low risk/ambulating Lines/Catheters IV Catheter Type (from [facility] Peripheral IV Urinary Cath still in place: No Assessment/Plan Hospital Course 82 y/o with 1. abd pain with CT diverticulitis , partial obstruction on CT scan 2. diverticulites 3. hx stage IV colon cancer on chemo gi 4. History of hypertension. 5. History of dyslipidemia. 6. History of coronary artery bypass graft. 7. History of aortic stenosis. 8. History of mitral valve repair. 9. Osteoarthritis. 10. Diabetes mellitus. 11. BPH. 12 Diarrhoea ? chemo + C diff now with black stool> r/o GI bleed s/p EGD with AVM s/p cautery 13 SARA vs SARA on CKD 14 Non gap acidosis likley due to diarrhoea imptoving 15 sob with bl infiltrates PNEUMONIA VS CHF> no fevers Plan - iv lasux - flu swab - nebs -montior diarrhoea no bm today - Hb stable - restart /PLAVIX - Azithromycin - dc fluids - cw vancomycin - cw PPI bid - f/u oncology as OPD post dc Result Diagram: 03/21/18 0523 03/20/18 0812 Results 24hrs Laboratory Tests Test 03/20/18 17:46 03/20/18 20:40 03/21/18 05:23 03/21/18 07:54 Bedside Glucose 128 132 138 White Blood Count 6.1 Red Blood Count 3.33 L Hemoglobin 10.6 L Hematocrit 32.1 L Mean Corpuscular 96.4 Volume Mean Corpuscular 31.8 Hemoglobin Mean Corpuscular 33.0 Hemoglobin Concent Red Cell 16.1 H Distribution Width Platelet Count 224 Mean Platelet Volume 8.9 Immature 0.500 H Granulocytes % Neutrophils % 62.3 Lymphocytes % 23.0 Monocytes % 12.7 H Eosinophils % 1.0 Basophils % 0.5 Nucleated Red Blood 0.0 Cells % Immature 0.030 Granulocytes # Neutrophils # 3.8 Lymphocytes # 1.4 Monocytes # 0.8 Eosinophils # 0.1 Basophils # 0.0 Nucleated Red Blood 0.0 Cells # Test 03/21/18 12:18 Bedside Glucose 123 Subjective 24 Hr Interval Summary Free Text/Dictation sob cough Exam/Review of Systems Vital Signs Vitals Vital Signs Date Temp Pulse Resp B/P (MAP) Pulse Ox O2 O2 Flow FiO2 Time Delivery Rate 03/21/18 98.0 82 20 140/66 95 Room Air 14:31 (90) 03/21/18 21 12:51 03/21/18 2.0 04:26 Intake and Output 03/20/18 03/20/18 03/21/18 1515:00 23:00 07:00 IntakeIntake Total 720 ml 160 ml 580 ml BalanceBalance 720 ml 160 ml 580 ml Exam espiratory: rhonchi/rales Cardiovascular: regular rate and rhythm Gastrointestinal: soft Musculoskeletal: nl extremities to inspection Extremities: normal pulses Medications Medications Current Medications Ondansetron HCl (Zofran Inj) 4 mg Q6H PRN IV NAUSEA AND/OR VOMITING; Start 03/13/18 at 19:00 Acetaminophen (Tylenol Tab) 650 mg Q6H PRN PO MILD PAIN(1-3)OR ELEVATED TEMP; Start 03/13/18 at 19:00 Hydralazine HCl (Apresoline) 5 mg Q8 PRN IV sbp>160 Last administered on 03/16/18at 23:39; Admin Dose 5 MG; Start 03/14/18 at 16:30 Vancomycin HCl (Vancomycin Oral Syringe) 125 mg Q6 PO Last administered on 03/21/18at 12:29; Admin Dose 125 MG; Start 03/15/18 at 13:30 Miscellaneous Information 1 ea NOTE XX ; Start 03/15/18 at 13:30 Glucose (Glutose) 15 gm Q15M PRN PO DECREASED GLUCOSE; Start 03/15/18 at 13:30 Glucose (Glutose) 22.5 gm Q15M PRN PO DECREASED GLUCOSE; Start 03/15/18 at 13:30 Dextrose (D50w Syringe) 25 ml Q15M PRN IV DECREASED GLUCOSE; Start 03/15/18 at 13:30 Dextrose (D50w Syringe) 50 ml Q15M PRN IV DECREASED GLUCOSE; Start 03/15/18 at 13:30 Glucagon (Glucagen) 1 mg Q15M PRN IM DECREASED GLUCOSE; Start 03/15/18 at 13:30 Glucose (Glutose) 15 gm Q15M PRN BUCCAL DECREASED GLUCOSE; Start 03/15/18 at 13:30 Insulin Aspart (Novolog Insulin Pen) (Adult SC Insulin - Mild Algorithm)... AC MEALS AND BEDTIME SC ; Start 03/15/18 at 17:35 Diagnostic Test (Pha) (Accu-Chek) 1 ea 02 XX ; Start 03/16/18 at 02:00 Tamsulosin HCl (Flomax) 0.4 mg HS PO Last administered on 03/20/18at 20:42; Admin Dose 0.4 MG; Start 03/16/18 at 21:00 Amlodipine Besylate (Norvasc) 5 mg DAILY PO Last administered on 03/21/18at 08:56; Admin Dose 5 MG; Start 03/16/18 at 15:00 Albuterol (Proventil 0.083% (Neb)) 2.5 mg Q6H RESP THERAPY HHN Last administered on 03/21/18at 12:51; Admin Dose 2.5 MG; Start 03/17/18 at 15:00 Sodium Bicarbonate (Sodium Bicarbonate Tab) 1,300 mg TID PO Last administered on 03/21/18at 12:29; Admin Dose 1,300 MG; Start 03/19/18 at 21:00 Guaifenesin/ Codeine Phosphate (Robitussin Ac Liquid Cup) 10 ml Q4H PRN PO COUGH; Start 03/20/18 at 15:00 Pantoprazole (Protonix Tab) 40 mg DAILY PO Last administered on 03/21/18at 08:56; Admin Dose 40 MG; Start 03/21/18 at 09:00 Aspirin (Halfprin) 81 mg DAILY PO Last administered on 03/21/18at 10:15; Admin Dose 81 MG; Start 03/21/18 at 10:00 Clopidogrel Bisulfate (plaVIX) 75 mg DAILY PO Last administered on 03/21/18at 10:14; Admin Dose 75 MG; Start 03/21/18 at 10:00 Albuterol/ Ipratropium (Duoneb) 3 ml Q4H RESP THERAPY HHN ; Start 03/21/18 at 17:00; Status UNV Furosemide (Lasix) 40 mg DAILY IV ; Start 03/21/18 at 15:30; Status UNV CARLOS ARTHUR MD Mar 21, 2018 15:28
[2018-03-21] MEDS ORDERED: AZITHROMYCIN 250 MG TAB PO ONE (15:30)
[2018-03-21] MEDS: ALBUTEROL/IPRATROPIUM (NEB) 3 ML AMP HHN SCH ×2 (16:32→21:00)
[2018-03-21] MEDS: FUROSEMIDE 40 MG INJ IV SCH (17:30)
--- NOTE | 2018-03-21 18:12 | CONS ---
Date/Time of Note Date/Time of Note DATE: 03/21/18 TIME: 18:09 Assessment/Plan Assessment/Plan Hospital Course IMP: 1.Preop-now post-op s/p endoscopy 2.MVR-? Bioprosthesis 3.AVR-bioprosthesis 4.Colon CA 5.C diff 6. Melena s/p endoscopy with AVM Recc: -s/p endoscopy without complications -Continue norvasc -would resume baseline BB -Losartan Held in setting of ? renal failure and started on CCB -continue Vanc and f/u cx data Result Diagram: 03/21/18 0523 03/20/18 0812 Results 24hrs Laboratory Tests Test 03/20/18 20:40 03/21/18 05:23 03/21/18 07:54 03/21/18 12:18 Bedside Glucose 132 138 123 White Blood Count 6.1 Red Blood Count 3.33 L Hemoglobin 10.6 L Hematocrit 32.1 L Mean Corpuscular 96.4 Volume Mean Corpuscular 31.8 Hemoglobin Mean Corpuscular 33.0 Hemoglobin Concent Red Cell 16.1 H Distribution Width Platelet Count 224 Mean Platelet Volume 8.9 Immature 0.500 H Granulocytes % Neutrophils % 62.3 Lymphocytes % 23.0 Monocytes % 12.7 H Eosinophils % 1.0 Basophils % 0.5 Nucleated Red Blood 0.0 Cells % Immature 0.030 Granulocytes # Neutrophils # 3.8 Lymphocytes # 1.4 Monocytes # 0.8 Eosinophils # 0.1 Basophils # 0.0 Nucleated Red Blood 0.0 Cells # Test 03/21/18 17:02 Bedside Glucose 125 Consultation Date/Type/Reason Admit Date/Time Mar 13, 2018 at 15:43 Initial Consult Date 03/14/18 Type of Consult cardiology Reason for Consultation h/o cabg/preop/HTN Requesting Provider: SMITH MATSON MD Exam/Review of Systems Vital Signs Vitals Vital Signs Date Temp Pulse Resp B/P (MAP) Pulse Ox O2 O2 Flow FiO2 Time Delivery Rate 03/21/18 76 20 98 21 16:32 03/21/18 98.0 140/66 Room Air 14:31 (90) 03/21/18 2.0 04:26 Intake and Output 03/20/18 03/20/18 03/21/18 1515:00 23:00 07:00 IntakeIntake Total 720 ml 160 ml 580 ml BalanceBalance 720 ml 160 ml 580 ml Exam Review of Systems: CONSTITUTIONAL: No fevers, chills. PULMONARY: No sob CARDIOVASCULAR: No chest pain/palpitations GASTROINTESTINAL: No nausea/vomiting. GENITOURINARY: No hematuria/dysuria. MUSCULOSKELETAL: No myagias/arthalgias. PSYCHIATRIC: The patient denies depression. NEUROLOGIC: No weakness Constitutional: alert, oriented Psych: no complaints Head: normocephalic ENMT: mucosa pink and moist Neck: supple, jvd Respiratory: diminished breath sounds Cardiovascular: regular rate and rhythm Gastrointestinal: soft, non-tender Musculoskeletal: muscle tone Extremities: pitting pedal edema (bilateral) Neurological: other (No focal deficits) Medications Medications Current Medications Ondansetron HCl (Zofran Inj) 4 mg Q6H PRN IV NAUSEA AND/OR VOMITING; Start 03/13/18 at 19:00 Acetaminophen (Tylenol Tab) 650 mg Q6H PRN PO MILD PAIN(1-3)OR ELEVATED TEMP; Start 03/13/18 at 19:00 Hydralazine HCl (Apresoline) 5 mg Q8 PRN IV sbp>160 Last administered on 03/16/18at 23:39; Admin Dose 5 MG; Start 03/14/18 at 16:30 Vancomycin HCl (Vancomycin Oral Syringe) 125 mg Q6 PO Last administered on 03/21/18at 17:31; Admin Dose 125 MG; Start 03/15/18 at 13:30 Miscellaneous Information 1 ea NOTE XX ; Start 03/15/18 at 13:30 Glucose (Glutose) 15 gm Q15M PRN PO DECREASED GLUCOSE; Start 03/15/18 at 13:30 Glucose (Glutose) 22.5 gm Q15M PRN PO DECREASED GLUCOSE; Start 03/15/18 at 13:30 Dextrose (D50w Syringe) 25 ml Q15M PRN IV DECREASED GLUCOSE; Start 03/15/18 at 13:30 Dextrose (D50w Syringe) 50 ml Q15M PRN IV DECREASED GLUCOSE; Start 03/15/18 at 13:30 Glucagon (Glucagen) 1 mg Q15M PRN IM DECREASED GLUCOSE; Start 03/15/18 at 13:30 Glucose (Glutose) 15 gm Q15M PRN BUCCAL DECREASED GLUCOSE; Start 03/15/18 at 13:30 Insulin Aspart (Novolog Insulin Pen) (Adult SC Insulin - Mild Algorithm)... AC MEALS AND BEDTIME SC ; Start 03/15/18 at 17:35 Diagnostic Test (Pha) (Accu-Chek) 1 ea 02 XX ; Start 03/16/18 at 02:00 Tamsulosin HCl (Flomax) 0.4 mg HS PO Last administered on 03/20/18at 20:42; Admin Dose 0.4 MG; Start 03/16/18 at 21:00 Amlodipine Besylate (Norvasc) 5 mg DAILY PO Last administered on 03/21/18at 08:56; Admin Dose 5 MG; Start 03/16/18 at 15:00 Albuterol (Proventil 0.083% (Neb)) 2.5 mg Q6H RESP THERAPY HHN Last administered on 03/21/18at 12:51; Admin Dose 2.5 MG; Start 03/17/18 at 15:00 Guaifenesin/ Codeine Phosphate (Robitussin Ac Liquid Cup) 10 ml Q4H PRN PO COUGH Last administered on 03/21/18at 17:33; Admin Dose 10 ML; Start 03/20/18 at 15:00 Pantoprazole (Protonix Tab) 40 mg DAILY PO Last administered on 03/21/18at 08:56; Admin Dose 40 MG; Start 03/21/18 at 09:00 Aspirin (Halfprin) 81 mg DAILY PO Last administered on 03/21/18at 10:15; Admin Dose 81 MG; Start 03/21/18 at 10:00 Clopidogrel Bisulfate (plaVIX) 75 mg DAILY PO Last administered on 03/21/18at 10:14; Admin Dose 75 MG; Start 03/21/18 at 10:00 Albuterol/ Ipratropium (Duoneb) 3 ml Q4H RESP THERAPY HHN Last administered on 03/21/18 16:32; Admin Dose 3 ML; Start 03/21/18 at 17:00 Furosemide (Lasix) 40 mg DAILY IV Last administered on 03/21/18at 17:30; Admin Dose 40 MG; Start 03/21/18 at 15:30 CARLIE JEAN BAPTISTE Mar 21, 2018 18:12
[2018-03-21 20:00] VITALS: BP 141/65; PULSE 63; RESP 19
[2018-03-21] MEDS: TAMSULOSIN (SR) 0.4 MG CAP PO SCH (20:06)
[2018-03-22] VITALS (7 sets, daily range): BP systolic 133–150; BP diastolic 62–69; PULSE 64–79; RESP 18–20
[2018-03-22] MEDS: ALBUTEROL/IPRATROPIUM (NEB) 3 ML AMP HHN SCH ×6 (00:53→21:28)
[2018-03-22] MEDS: ACCUCHECK AT 2AM (Patients on SS coverage) XX SCH (01:41)
[2018-03-22] MEDS: VANCOMYCIN HCL 250 MG/5ML POSYG PO SCH ×3 (05:17→17:37)
[2018-03-22] MEDS: Insulin NOVOLOG SS MILD Algorithm (SS with meals and bedtime) SC SCH ×4 (07:30→20:34)
[2018-03-22] MEDS: PANTOPRAZOLE (EC) 40 MG TAB PO SCH (08:46)
[2018-03-22] MEDS: CLOPIDOGREL 75 MG TAB PO SCH (08:46)
[2018-03-22] MEDS: AMLODIPINE 5 MG TAB PO SCH (08:46)
[2018-03-22] MEDS: ASPIRIN (EC) 81 MG TAB PO SCH (08:46)
[2018-03-22] MEDS: FUROSEMIDE 40 MG INJ IV SCH ×2 (08:46→17:18)
--- NOTE | 2018-03-22 11:50 | CONS ---
Date/Time of Note Date/Time of Note DATE: 03/22/18 TIME: 11:46 Assessment/Plan Assessment/Plan Assessment/Plan #STAGE IV colon CA -pt currently under treatment with Dr. Vang -once the C diff resolves, pt can resume treatment #melena -HG stable- Hgb 10.6 today -EGD demonstrated gastritis -continue pantoprazole #Cdiff -continue FLagyl -continue current diet #HTN -continue current hypertensive medications # BLE swelling- No evidence of a deep vein thrombosis within the bilateral lower extremities; Thrombus in right tibial veins within the right calf. - Will start Eliquis 10 mg po BID X 7 days - Eliquis 5 mg po BID X 7 days thereafter A total of 40 minutes of face to face time was spent speaking with the patient/ , of which greater than 50% was spent in counseling and coordination of care and the detailed question and answer session. Dw staff Result Diagram: 03/22/1892303/22/18 0924 Results 24hrs Laboratory Tests Test 03/21/18 12:18 03/21/18 17:02 03/21/18 20:12 03/22/18 07:52 Bedside Glucose 123 125 122 87 Test 03/22/18 09:24 White Blood Count 6.3 Red Blood Count 3.34 L Hemoglobin 10.6 L Hematocrit 32.1 L Mean Corpuscular 96.1 Volume Mean Corpuscular 31.7 Hemoglobin Mean Corpuscular 33.0 Hemoglobin Concent Red Cell 16.3 H Distribution Width Platelet Count 211 Mean Platelet Volume 9.1 Immature 0.200 Granulocytes % Neutrophils % 49.4 Lymphocytes % 36.2 Monocytes % 10.2 Eosinophils % 3.5 Basophils % 0.5 Nucleated Red Blood 0.0 Cells % Immature 0.010 Granulocytes # Neutrophils # 3.1 Lymphocytes # 2.3 Monocytes # 0.6 Eosinophils # 0.2 Basophils # 0.0 Nucleated Red Blood 0.0 Cells # Sodium Level 138 Potassium Level 3.7 Chloride Level 108 Carbon Dioxide Level 20 L Anion Gap 10 Blood Urea Nitrogen 21 H Creatinine 1.74 H Est Glomerular Filtrat Rate mL/min Glucose Level 103 Calcium Level 8.7 Phosphorus Level 3.3 Magnesium Level 1.8 Consultation Date/Type/Reason Admit Date/Time Mar 13, 2018 at 15:43 Initial Consult Date 03/14/18 Type of Consult ONCOLOGY Reason for Consultation COLON CANCER Requesting Provider: SMITH MATSON MD 24 HR Interval Summary Free Text/Dictation Diarrhea improved - 03/22/2018- RLE thrombus, will order Eliquis - no new events reported last night Constitutional: requiring O2 Detailed Summary ENT: no complaints Respiratory: no complaints Cardiovascular: no complaints Gastrointestinal: diarrhea Genitourinary: no complaints Musculoskeletal: no complaints Skin: no complaints Exam/Review of Systems Vital Signs Vitals Vital Signs Date Temp Pulse Resp B/P (MAP) Pulse Ox O2 O2 Flow FiO2 Time Delivery Rate 03/22/18 98.0 68 18 141/64 97 Room Air 08:12 (89) 03/22/18 08:02 03/21/18 2.0 04:26 Intake and Output 03/21/18 03/21/18 03/22/18 1515:00 23:00 07:00 IntakeIntake Total 820 ml 200 ml BalanceBalance 820 ml 200 ml Exam Constitutional: alert, well developed Psych: nl mood/affect Head: atraumatic Eyes: EOMI ENMT: nl external ears & nose Respiratory: diminished breath sounds Cardiovascular: nl pulses, other (s1s2) Musculoskeletal: muscle weakness Extremities: edema Neurological: nl speech, other (alert/ reponsive) Skin: nl turgor Lymph: nontender Medications Medications Current Medications Ondansetron HCl (Zofran Inj) 4 mg Q6H PRN IV NAUSEA AND/OR VOMITING; Start 03/13/18 at 19:00 Acetaminophen (Tylenol Tab) 650 mg Q6H PRN PO MILD PAIN(1-3)OR ELEVATED TEMP; Start 03/13/18 at 19:00 Hydralazine HCl (Apresoline) 5 mg Q8 PRN IV sbp>160 Last administered on 03/16/18at 23:39; Admin Dose 5 MG; Start 03/14/18 at 16:30 Vancomycin HCl (Vancomycin Oral Syringe) 125 mg Q6 PO Last administered on 03/22/18at 05:17; Admin Dose 125 MG; Start 03/15/18 at 13:30 Miscellaneous Information 1 ea NOTE XX ; Start 03/15/18 at 13:30 Glucose (Glutose) 15 gm Q15M PRN PO DECREASED GLUCOSE; Start 03/15/18 at 13:30 Glucose (Glutose) 22.5 gm Q15M PRN PO DECREASED GLUCOSE; Start 03/15/18 at 13:30 Dextrose (D50w Syringe) 25 ml Q15M PRN IV DECREASED GLUCOSE; Start 03/15/18 at 13:30 Dextrose (D50w Syringe) 50 ml Q15M PRN IV DECREASED GLUCOSE; Start 03/15/18 at 13:30 Glucagon (Glucagen) 1 mg Q15M PRN IM DECREASED GLUCOSE; Start 03/15/18 at 13:30 Glucose (Glutose) 15 gm Q15M PRN BUCCAL DECREASED GLUCOSE; Start 03/15/18 at 13:30 Insulin Aspart (Novolog Insulin Pen) (Adult SC Insulin - Mild Algorithm)... AC MEALS AND BEDTIME SC ; Start 03/15/18 at 17:35 Diagnostic Test (Pha) (Accu-Chek) 1 ea 02 XX ; Start 03/16/18 at 02:00 Tamsulosin HCl (Flomax) 0.4 mg HS PO Last administered on 03/21/18at 20:06; Admin Dose 0.4 MG; Start 03/16/18 at 21:00 Amlodipine Besylate (Norvasc) 5 mg DAILY PO Last administered on 03/22/18at 08:46; Admin Dose 5 MG; Start 03/16/18 at 15:00 Guaifenesin/ Codeine Phosphate (Robitussin Ac Liquid Cup) 10 ml Q4H PRN PO COUGH Last administered on 03/21/18at 17:33; Admin Dose 10 ML; Start 03/20/18 at 15:00 Pantoprazole (Protonix Tab) 40 mg DAILY PO Last administered on 03/22/18at 08:46; Admin Dose 40 MG; Start 03/21/18 at 09:00 Aspirin (Halfprin) 81 mg DAILY PO Last administered on 03/22/18at 08:46; Admin Dose 81 MG; Start 03/21/18 at 10:00 Clopidogrel Bisulfate (plaVIX) 75 mg DAILY PO Last administered on 03/22/18at 08:46; Admin Dose 75 MG; Start 03/21/18 at 10:00 Albuterol/ Ipratropium (Duoneb) 3 ml Q4H RESP THERAPY HHN Last administered on 03/22/18at 08:02; Admin Dose 3 ML; Start 03/21/18 at 17:00 Furosemide (Lasix) 40 mg DAILY IV Last administered on 03/22/18 08:46; Admin Dose 40 MG; Start 03/21/18 at 15:30 Carvedilol (Coreg) 6.25 mg BID PO Last administered on 03/22/18at 08:46; Admin Dose 6.25 MG; Start 03/21/18 at 21:00 YARITZA LEACH Mar 22, 2018 11:50
--- NOTE | 2018-03-22 12:06 | PN ---
Date/Time of Note Date/Time of Note DATE: 03/22/18 TIME: 12:01 Assessment/Plan VTE Prophylaxis [place] [facility] [place]: 3 [place]CD [place] [facility] [place] SCD contraindicated: patient refusal Pharmacological prophylaxis: NA/contraindicated Pharm contraindication: bleeding Lines/Catheters [facility] (from [facility] Saline Lock Urinary Cath still in place: No Assessment/Plan Hospital Course 1. abd pain with CT diverticulitis , partial obstruction on CT scan 2. diverticulitis. 3. hx cancer on chemo 4. History of hypertension. 5. History of dyslipidemia. 6. History of coronary artery bypass graft. 7. History of aortic stenosis. 8. History of mitral valve repair. 9. Osteoarthritis. 10. Diabetes mellitus. 11. BPH. 12 Diarrhoea C diff 13. Anemia 14. Overweight 15. Right leg clot 16. AMS Assessment/Plan -decrease narcotics -telemetry -spoke to hematology, they intent to start on Eliquiz - iv lasux - flu swab - nebs -once Eliq. Starts stop Aspirin - Hb stable - c/w /PLAVIX - Azithromycin - dc fluids - cw vancomycin - cw PPI bid - f/u oncology as OPD post dc Result Diagram: 03/22/1824 03/22/18 0924 Results 24hrs Laboratory Tests Test 03/21/18 12:18 03/21/18 17:02 03/21/18 20:12 03/22/18 07:52 Bedside Glucose 123 125 122 87 Test 03/22/18 09:24 White Blood Count 6.3 Red Blood Count 3.34 L Hemoglobin 10.6 L Hematocrit 32.1 L Mean Corpuscular 96.1 Volume Mean Corpuscular 31.7 Hemoglobin Mean Corpuscular 33.0 Hemoglobin Concent Red Cell 16.3 H Distribution Width Platelet Count 211 Mean Platelet Volume 9.1 Immature 0.200 Granulocytes % Neutrophils % 49.4 Lymphocytes % 36.2 Monocytes % 10.2 Eosinophils % 3.5 Basophils % 0.5 Nucleated Red Blood 0.0 Cells % Immature 0.010 Granulocytes # Neutrophils # 3.1 Lymphocytes # 2.3 Monocytes # 0.6 Eosinophils # 0.2 Basophils # 0.0 Nucleated Red Blood 0.0 Cells # Sodium Level 138 Potassium Level 3.7 Chloride Level 108 Carbon Dioxide Level 20 L Anion Gap 10 Blood Urea Nitrogen 21 H Creatinine 1.74 H Est Glomerular Filtrat Rate mL/min Glucose Level 103 Calcium Level 8.7 Phosphorus Level 3.3 Magnesium Level 1.8 Subjective 24 Hr Interval Summary Constitutional: no complaints Exam/Review of Systems Vital Signs Vitals Vital Signs Date Temp Pulse Resp B/P (MAP) Pulse Ox O2 O2 Flow FiO2 Time Delivery Rate 03/22/18 98.0 68 18 141/64 97 Room Air 08:12 (89) 03/22/18 08:02 03/21/18 2.0 04:26 Intake and Output 03/21/18 03/21/18 03/22/18 1515:00 23:00 07:00 IntakeIntake Total 820 ml 200 ml BalanceBalance 820 ml 200 ml Exam lethargic Head: normocephalic Eyes: nl conjunctiva ENMT: nl external ears & nose Neck: supple Respiratory: diminished breath sounds Cardiovascular: regular rate and rhythm Gastrointestinal: soft Musculoskeletal: muscle weakness, range of motion (decreased) Medications Medications Current Medications Ondansetron HCl (Zofran Inj) 4 mg Q6H PRN IV NAUSEA AND/OR VOMITING; Start 03/13/18 at 19:00 Acetaminophen (Tylenol Tab) 650 mg Q6H PRN PO MILD PAIN(1-3)OR ELEVATED TEMP; Start 03/13/18 at 19:00 Hydralazine HCl (Apresoline) 5 mg Q8 PRN IV sbp>160 Last administered on at 23:39; Admin Dose 5 MG; Start 03/14/18 at 16:30 Vancomycin HCl (Vancomycin Oral Syringe) 125 mg Q6 PO Last administered on 03/22/18at 05:17; Admin Dose 125 MG; Start 03/15/18 at 13:30 Miscellaneous Information 1 ea NOTE XX ; Start 03/15/18 at 13:30 Glucose (Glutose) 15 gm Q15M PRN PO DECREASED GLUCOSE; Start 03/15/18 at 13:30 Glucose (Glutose) 22.5 gm Q15M PRN PO DECREASED GLUCOSE; Start 03/15/18 at 13:30 Dextrose (D50w Syringe) 25 ml Q15M PRN IV DECREASED GLUCOSE; Start 03/15/18 at 13:30 Dextrose (D50w Syringe) 50 ml Q15M PRN IV DECREASED GLUCOSE; Start 03/15/18 at 13:30 Glucagon (Glucagen) 1 mg Q15M PRN IM DECREASED GLUCOSE; Start 03/15/18 at 13:30 Glucose (Glutose) 15 gm Q15M PRN BUCCAL DECREASED GLUCOSE; Start 03/15/18 at 13:30 Insulin Aspart (Novolog Insulin Pen) (Adult SC Insulin - Mild Algorithm)... AC MEALS AND BEDTIME SC ; Start 03/15/18 at 17:35 Diagnostic Test (Pha) (Accu-Chek) 1 ea 02 XX ; Start 03/16/18 at 02:00 Tamsulosin HCl (Flomax) 0.4 mg HS PO Last administered on 03/21/18at 20:06; Admin Dose 0.4 MG; Start 03/16/18 at 21:00 Amlodipine Besylate (Norvasc) 5 mg DAILY PO Last administered on 03/22/18 08:46; Admin Dose 5 MG; Start 03/16/18 at 15:00 Guaifenesin/ Codeine Phosphate (Robitussin Ac Liquid Cup) 10 ml Q4H PRN PO COUGH Last administered on 03/21/18at 17:33; Admin Dose 10 ML; Start 03/20/18 at 15:00 Pantoprazole (Protonix Tab) 40 mg DAILY PO Last administered on 03/22/18 08:46; Admin Dose 40 MG; Start 03/21/18 at 09:00 Aspirin (Halfprin) 81 mg DAILY PO Last administered on 03/22/18 08:46; Admin Dose 81 MG; Start 03/21/18 at 10:00 Clopidogrel Bisulfate (plaVIX) 75 mg DAILY PO Last administered on 03/22/18 08:46; Admin Dose 75 MG; Start 03/21/18 at 10:00 Albuterol/ Ipratropium (Duoneb) 3 ml Q4H RESP THERAPY HHN Last administered on 03/22/18 08:02; Admin Dose 3 ML; Start 03/21/18 at 17:00 Furosemide (Lasix) 40 mg DAILY IV Last administered on 03/22/18 08:46; Admin Dose 40 MG; Start 03/21/18 at 15:30 Carvedilol (Coreg) 6.25 mg BID PO Last administered on 03/22/18at 08:46; Admin Dose 6.25 MG; Start 03/21/18 at 21:00 GIO PURCELL Mar 22, 2018 12:06
--- NOTE | 2018-03-22 13:20 | PN ---
Date/Time of Note Date/Time of Note DATE: 03/22/18 TIME: 13:11 Assessment/Plan VTE Prophylaxis Risk score (from [facility])>0 risk: 3 SCD applied (from [facility]): No SCD contraindicated: low risk/ambulating Pharmacological prophylaxis: NA/contraindicated Pharm contraindication: bleeding Lines/Catheters IV Catheter Type (from [facility]): Saline Lock Urinary Cath still in place: No Assessment/Plan Assessment/Plan Assessment: Melena -EGD 03/19/18 Gastric AVM status post cautery Diverticulitis C. difficile colitis Abdominal pain 2/2 to above Stage IV Colon cancer - per family dx 8 months -Currently on chemotherapy Hepatic lesion 1.1cm, worrisome for metastatic lesion on imaging DM Hypertension CAD Aortic stenosis History of MVR Osteoarthritis BPH Plan: Diabetic diet Patient was restarted on Plavix/ASA Monitor for overt signs of GI bleed Monitor H&H Transfuse for hemoglobin less than 7.5 Patient seen in collaboration with Dr. Laguerre/Manolo Subjective: Patient is doing fair. Denies abdominal pain, nausea or vomiting. Still having melanotic stools. Pt was started Plavix/ASA . Hemoglobin is stable. Continue observation PHYSICAL EXAMINATION: GENERAL: Well developed, well nourished, alert & oriented x 3, in no acute distress SKIN: No lesions.. EYES: Pupils equal reactive to light, no discharge. EARS/NOSE AND THROAT: Ears normal, nose normal, oropharynx normal. NECK: Supple, no masses, thyroid normal, JVP within normal limits, carotids normal without bruits. CHEST: Inspection within normal limits. CARDIOVASCULAR: Heart: Regular rate and rhythm. RESPIRATORY: diminished GASTROINTESTINAL AND LIVER: Abdomen: Soft, obese, non tenderness, non-distended, no hernias, no masses, no organomegaly, no ascites, no guarding, no rebound tenderness, normoactive bowel sounds. Rectal: Deferred. GENITOURINARY: Male genitalia within normal limits. EXTREMITIES: No cyanosis, clubbing or edema. Result Diagram: 03/22/1892303/22/18 0924 Results 24hrs Laboratory Tests Test 03/21/18 17:02 03/21/18 20:12 03/22/18 07:52 03/22/18 09:24 Bedside Glucose 125 122 87 White Blood Count 6.3 Red Blood Count 3.34 L Hemoglobin 10.6 L Hematocrit 32.1 L Mean Corpuscular 96.1 Volume Mean Corpuscular 31.7 Hemoglobin Mean Corpuscular 33.0 Hemoglobin Concent Red Cell 16.3 H Distribution Width Platelet Count 211 Mean Platelet Volume 9.1 Immature 0.200 Granulocytes % Neutrophils % 49.4 Lymphocytes % 36.2 Monocytes % 10.2 Eosinophils % 3.5 Basophils % 0.5 Nucleated Red Blood 0.0 Cells % Immature 0.010 Granulocytes # Neutrophils # 3.1 Lymphocytes # 2.3 Monocytes # 0.6 Eosinophils # 0.2 Basophils # 0.0 Nucleated Red Blood 0.0 Cells # Sodium Level 138 Potassium Level 3.7 Chloride Level 108 Carbon Dioxide Level 20 L Anion Gap 10 Blood Urea Nitrogen 21 H Creatinine 1.74 H Est Glomerular Filtrat Rate mL/min Glucose Level 103 Calcium Level 8.7 Phosphorus Level 3.3 Magnesium Level 1.8 Test 03/22/18 12:02 Bedside Glucose 100 CC: JEROME LAGUERRE MD ; Exam/Review of Systems Vital Signs Vitals Vital Signs Date Temp Pulse Resp B/P (MAP) Pulse Ox O2 O2 Flow FiO2 Time Delivery Rate 03/22/18 76 20 98 21 12:21 03/22/18 98.0 141/64 Room Air 08:12 (89) 03/21/18 2.0 04:26 Intake and Output 03/21/18 03/21/18 03/22/18 1515:00 23:00 07:00 IntakeIntake Total 820 ml 200 ml BalanceBalance 820 ml 200 ml Medications Medications Current Medications Ondansetron HCl (Zofran Inj) 4 mg Q6H PRN IV NAUSEA AND/OR VOMITING; Start 03/13/18 at 19:00 Acetaminophen (Tylenol Tab) 650 mg Q6H PRN PO MILD PAIN(1-3)OR ELEVATED TEMP; Start 03/13/18 at 19:00 Hydralazine HCl (Apresoline) 5 mg Q8 PRN IV sbp>160 Last administered on 03/16/18at 23:39; Admin Dose 5 MG; Start 03/14/18 at 16:30 Vancomycin HCl (Vancomycin Oral Syringe) 125 mg Q6 PO Last administered on 03/22/18at 12:44; Admin Dose 125 MG; Start 03/15/18 at 13:30 Miscellaneous Information 1 ea NOTE XX ; Start 03/15/18 at 13:30 Glucose (Glutose) 15 gm Q15M PRN PO DECREASED GLUCOSE; Start 03/15/18 at 13:30 Glucose (Glutose) 22.5 gm Q15M PRN PO DECREASED GLUCOSE; Start 03/15/18 at 13:30 Dextrose (D50w Syringe) 25 ml Q15M PRN IV DECREASED GLUCOSE; Start 03/15/18 at 13:30 Dextrose (D50w Syringe) 50 ml Q15M PRN IV DECREASED GLUCOSE; Start 03/15/18 at 13:30 Glucagon (Glucagen) 1 mg Q15M PRN IM DECREASED GLUCOSE; Start 03/15/18 at 13:30 Glucose (Glutose) 15 gm Q15M PRN BUCCAL DECREASED GLUCOSE; Start 03/15/18 at 13:30 Insulin Aspart (Novolog Insulin Pen) (Adult SC Insulin - Mild Algorithm)... AC MEALS AND BEDTIME SC ; Start 03/15/18 at 17:35 Diagnostic Test (Pha) (Accu-Chek) 1 ea 02 XX ; Start 03/16/18 at 02:00 Tamsulosin HCl (Flomax) 0.4 mg HS PO Last administered on 03/21/18at 20:06; Admin Dose 0.4 MG; Start 03/16/18 at 21:00 Amlodipine Besylate (Norvasc) 5 mg DAILY PO Last administered on 03/22/18at 08:46; Admin Dose 5 MG; Start 03/16/18 at 15:00 Pantoprazole (Protonix Tab) 40 mg DAILY PO Last administered on 03/22/18at 08:46; Admin Dose 40 MG; Start 03/21/18 at 09:00 Aspirin (Halfprin) 81 mg DAILY PO Last administered on 03/22/18at 08:46; Admin Dose 81 MG; Start 03/21/18 at 10:00 Clopidogrel Bisulfate (plaVIX) 75 mg DAILY PO Last administered on 03/22/18at 08:46; Admin Dose 75 MG; Start 03/21/18 at 10:00 Albuterol/ Ipratropium (Duoneb) 3 ml Q4H RESP THERAPY HHN Last administered on 03/22/18at 12:21; Admin Dose 3 ML; Start 03/21/18 at 17:00 Furosemide (Lasix) 40 mg DAILY IV Last administered on 03/22/18at 08:46; Admin Dose 40 MG; Start 03/21/18 at 15:30 Carvedilol (Coreg) 6.25 mg BID PO Last administered on 03/22/18at 08:46; Admin Dose 6.25 MG; Start 03/21/18 at 21:00 Miscellaneous Information (* Miscellaneous Pharmacy Order) please stop Aspi... ONCE XX ; Start 03/22/18 at 12:30; Status UNV TIAGO WANG NP Mar 22, 2018 13:20
--- NOTE | 2018-03-22 15:46 | CONS ---
Date/Time of Note Date/Time of Note DATE: 03/22/18 TIME: 15:42 Assessment/Plan Assessment/Plan Hospital Course IMP: 1.Preop-now post-op s/p endoscopy 2.MVR- ?Bioprosthesis 3.AVR-?bioprosthesis 4.Colon CA 5.C diff 6. Melena s/p endoscopy with AVM Recc: -s/p endoscopy without complications -Continue norvasc with slight increase to improve BP -Continue coreg -started on eliquis for LE thrombus -Losartan Held in setting of ? renal failure and started on CCB -continue Vanc and f/u cx data -check echo Result Diagram: 03/22/1892303/22/18923 Results 24hrs Laboratory Tests Test 03/21/18 17:02 03/21/18 20:12 03/22/18 07:52 03/22/18 09:24 Bedside Glucose 125 122 87 White Blood Count 6.3 Red Blood Count 3.34 L Hemoglobin 10.6 L Hematocrit 32.1 L Mean Corpuscular 96.1 Volume Mean Corpuscular 31.7 Hemoglobin Mean Corpuscular 33.0 Hemoglobin Concent Red Cell 16.3 H Distribution Width Platelet Count 211 Mean Platelet Volume 9.1 Immature 0.200 Granulocytes % Neutrophils % 49.4 Lymphocytes % 36.2 Monocytes % 10.2 Eosinophils % 3.5 Basophils % 0.5 Nucleated Red Blood 0.0 Cells % Immature 0.010 Granulocytes # Neutrophils # 3.1 Lymphocytes # 2.3 Monocytes # 0.6 Eosinophils # 0.2 Basophils # 0.0 Nucleated Red Blood 0.0 Cells # Sodium Level 138 Potassium Level 3.7 Chloride Level 108 Carbon Dioxide Level 20 L Anion Gap 10 Blood Urea Nitrogen 21 H Creatinine 1.74 H Est Glomerular Filtrat Rate mL/min Glucose Level 103 Calcium Level 8.7 Phosphorus Level 3.3 Magnesium Level 1.8 Test 03/22/18 12:02 Bedside Glucose 100 Consultation Date/Type/Reason Admit Date/Time Mar 13, 2018 at 15:43 Initial Consult Date 03/14/18 Type of Consult cardiology Reason for Consultation HTN Requesting Provider: SMITH MATSON MD Exam/Review of Systems Vital Signs Vitals Vital Signs Date Temp Pulse Resp B/P (MAP) Pulse Ox O2 O2 Flow FiO2 Time Delivery Rate 03/22/18 69 14:50 03/22/18 20 98 21 12:21 03/22/18 98.0 141/64 Room Air 08:12 (89) 03/21/18 2.0 04:26 Intake and Output 03/21/18 03/21/18 03/22/18 1515:00 23:00 07:00 IntakeIntake Total 820 ml 200 ml BalanceBalance 820 ml 200 ml Exam Review of Systems: CONSTITUTIONAL: No fevers, chills. PULMONARY: No sob CARDIOVASCULAR: No chest pain/palpitations GASTROINTESTINAL: No nausea/vomiting. GENITOURINARY: No hematuria/dysuria. MUSCULOSKELETAL: No myagias/arthalgias. PSYCHIATRIC: The patient denies depression. NEUROLOGIC: No weakness Constitutional: alert Psych: no complaints Head: normocephalic ENMT: mucosa pink and moist Neck: supple, jvd (9 cm water) Respiratory: diminished breath sounds (at bases/B.) Cardiovascular: regular rate and rhythm Gastrointestinal: soft, non-tender Musculoskeletal: muscle tone (normal) Extremities: edema (bilateral) Medications Medications Current Medications Ondansetron HCl (Zofran Inj) 4 mg Q6H PRN IV NAUSEA AND/OR VOMITING; Start 03/13/18 at 19:00 Acetaminophen (Tylenol Tab) 650 mg Q6H PRN PO MILD PAIN(1-3)OR ELEVATED TEMP; Start 03/13/18 at 19:00 Hydralazine HCl (Apresoline) 5 mg Q8 PRN IV sbp>160 Last administered on 03/16/18at 23:39; Admin Dose 5 MG; Start 03/14/18 at 16:30 Vancomycin HCl (Vancomycin Oral Syringe) 125 mg Q6 PO Last administered on 03/22/18at 12:44; Admin Dose 125 MG; Start 03/15/18 at 13:30 Miscellaneous Information 1 ea NOTE XX ; Start 03/15/18 at 13:30 Glucose (Glutose) 15 gm Q15M PRN PO DECREASED GLUCOSE; Start 03/15/18 at 13:30 Glucose (Glutose) 22.5 gm Q15M PRN PO DECREASED GLUCOSE; Start 03/15/18 at 13:30 Dextrose (D50w Syringe) 25 ml Q15M PRN IV DECREASED GLUCOSE; Start 03/15/18 at 13:30 Dextrose (D50w Syringe) 50 ml Q15M PRN IV DECREASED GLUCOSE; Start 03/15/18 at 13:30 Glucagon (Glucagen) 1 mg Q15M PRN IM DECREASED GLUCOSE; Start 03/15/18 at 13:30 Glucose (Glutose) 15 gm Q15M PRN BUCCAL DECREASED GLUCOSE; Start 03/15/18 at 13:30 Insulin Aspart (Novolog Insulin Pen) (Adult SC Insulin - Mild Algorithm)... AC MEALS AND BEDTIME SC ; Start 03/15/18 at 17:35 Diagnostic Test (Pha) (Accu-Chek) 1 ea 02 XX ; Start 03/16/18 at 02:00 Tamsulosin HCl (Flomax) 0.4 mg HS PO Last administered on 03/21/18 20:06; Admin Dose 0.4 MG; Start 03/16/18 at 21:00 Amlodipine Besylate (Norvasc) 5 mg DAILY PO Last administered on 03/22/18 08:46; Admin Dose 5 MG; Start 03/16/18 at 15:00 Pantoprazole (Protonix Tab) 40 mg DAILY PO Last administered on 03/22/18at 08:46; Admin Dose 40 MG; Start 03/21/18 at 09:00 Clopidogrel Bisulfate (plaVIX) 75 mg DAILY PO Last administered on 03/22/18 08:46; Admin Dose 75 MG; Start 03/21/18 at 10:00 Albuterol/ Ipratropium (Duoneb) 3 ml Q4H RESP THERAPY HHN Last administered on 03/22/18at 12:21; Admin Dose 3 ML; Start 03/21/18 at 17:00 Furosemide (Lasix) 40 mg DAILY IV Last administered on 03/22/18at 08:46; Admin Dose 40 MG; Start 03/21/18 at 15:30 Carvedilol (Coreg) 6.25 mg BID PO Last administered on 03/22/18 08:46; Admin Dose 6.25 MG; Start 03/21/18 at 21:00 Apixaban (Eliquis) 10 mg BID PO ; Start 03/22/18 at 21:00; Stop 03/29/18 at 09:01 Apixaban (Eliquis) 5 mg BID PO ; Start 03/29/18 at 21:00 CARLIE JEAN BAPTISTE Mar 22, 2018 15:46
[2018-03-22] MEDS: APIXABAN 5 MG TABLET PO SCH (20:30)
[2018-03-22] MEDS: TAMSULOSIN (SR) 0.4 MG CAP PO SCH (20:30)
[2018-03-23] VITALS (9 sets, daily range): BP systolic 135–173; BP diastolic 61–78; PULSE 65–98; RESP 18–20
[2018-03-23] MEDS: VANCOMYCIN HCL 250 MG/5ML POSYG PO SCH ×4 (01:15→17:39)
[2018-03-23] MEDS: ALBUTEROL/IPRATROPIUM (NEB) 3 ML AMP HHN SCH ×6 (01:46→19:57)
[2018-03-23] MEDS: ACCUCHECK AT 2AM (Patients on SS coverage) XX SCH (02:00)
[2018-03-23] MEDS: FUROSEMIDE 40 MG INJ IV SCH ×2 (06:00→17:42)
[2018-03-23] MEDS: Insulin NOVOLOG SS MILD Algorithm (SS with meals and bedtime) SC SCH ×4 (07:25→21:00)
[2018-03-23] MEDS: AMLODIPINE 5 MG TAB PO SCH (08:31)
[2018-03-23] MEDS: PANTOPRAZOLE (EC) 40 MG TAB PO SCH (08:31)
[2018-03-23] MEDS: APIXABAN 5 MG TABLET PO SCH ×2 (08:32→21:14)
--- NOTE | 2018-03-23 12:39 | PN ---
GIO WHITE 03/23/18 1239: Date/Time of Note Date/Time of Note DATE: 03/23/18 TIME: 12:38 Assessment/Plan VTE Prophylaxis [place] [facility] [place] risk: 11 SCD applied [place]from [facility] [place] No SCD contraindicated: other Pharmacological prophylaxis: apixaban Lines/Catheters IV [facility]atheter Type (from [facility]): Saline Lock Urinary Cath still in place: No Assessment/Plan Hospital Course 1. abd pain with CT diverticulitis , partial obstruction on CT scan 2. diverticulitis. 3. hx cancer on chemo 4. History of hypertension. 5. History of dyslipidemia. 6. History of coronary artery bypass graft. 7. History of aortic stenosis. 8. History of mitral valve repair. 9. Osteoarthritis. 10. Diabetes mellitus. 11. BPH. 12 Diarrhoea C diff, resolved 13. Anemia 14. Overweight 15. Right leg clot 16. AMS Assessment/Plan -telemetry -c/w Eliquiz - iv lasix - nebs - Hb stable - c/w PLAVIX - cw PPI bid - f/u oncology as OPD post dc Result Diagram: 03/23/18 0612 03/23/18 0612 Results 24hrs Laboratory Tests Test 03/22/18 17:16 03/22/18 20:33 03/23/18 02:26 03/23/18 06:12 Bedside Glucose 104 145 95 White Blood Count 5.7 Red Blood Count 3.32 L Hemoglobin 10.5 L Hematocrit 31.5 L Mean Corpuscular 94.9 Volume Mean Corpuscular 31.6 Hemoglobin Mean Corpuscular 33.3 Hemoglobin Concent Red Cell 16.0 H Distribution Width Platelet Count 206 Mean Platelet Volume 9.3 Immature 0.200 Granulocytes % Neutrophils % 47.8 Lymphocytes % 34.9 Monocytes % 9.9 Eosinophils % 6.7 Basophils % 0.5 Nucleated Red Blood 0.0 Cells % Immature 0.010 Granulocytes # Neutrophils # 2.7 Lymphocytes # 2.0 Monocytes # 0.6 Eosinophils # 0.4 Basophils # 0.0 Nucleated Red Blood 0.0 Cells # Sodium Level 139 Potassium Level 3.5 Chloride Level 108 Carbon Dioxide Level 23 Anion Gap 8 Blood Urea Nitrogen 29 H Creatinine 1.82 H Est Glomerular Filtrat Rate mL/min Glucose Level 88 Calcium Level 8.6 Test 03/23/18 07:52 03/23/18 12:14 Bedside Glucose 93 121 Subjective 24 Hr Interval Summary Constitutional: no complaints, improved Exam/Review of Systems Vital Signs Vitals Vital Signs Date Temp Pulse Resp B/P (MAP) Pulse Ox O2 O2 Flow FiO2 Time Delivery Rate 03/23/18 98.0 72 20 147/61 96 11:17 (89) 03/23/18 Nasal 2.0 09:08 Cannula 03/22/18 24 16:54 Intake and Output 03/22/18 03/22/18 03/23/18 1515:00 23:00 07:00 IntakeIntake Total 720 ml 300 ml BalanceBalance 720 ml 300 ml Exam Constitutional: alert, oriented Respiratory: diminished breath sounds Cardiovascular: regular rate and rhythm Gastrointestinal: soft Musculoskeletal: swelling (bilaral low extremities) Medications Medications Current Medications Ondansetron HCl (Zofran Inj) 4 mg Q6H PRN IV NAUSEA AND/OR VOMITING; Start 03/13/18 at 19:00 Acetaminophen (Tylenol Tab) 650 mg Q6H PRN PO MILD PAIN(1-3)OR ELEVATED TEMP; Start 03/13/18 at 19:00 Hydralazine HCl (Apresoline) 5 mg Q8 PRN IV sbp>160 Last administered on 03/16/18at 23:39; Admin Dose 5 MG; Start 03/14/18 at 16:30 Vancomycin HCl (Vancomycin Oral Syringe) 125 mg Q6 PO Last administered on 03/23/18at 12:16; Admin Dose 125 MG; Start 03/15/18 at 13:30 Miscellaneous Information 1 ea NOTE XX ; Start 03/15/18 at 13:30 Glucose (Glutose) 15 gm Q15M PRN PO DECREASED GLUCOSE; Start 03/15/18 at 13:30 Glucose (Glutose) 22.5 gm Q15M PRN PO DECREASED GLUCOSE; Start 03/15/18 at 13:30 Dextrose (D50w Syringe) 25 ml Q15M PRN IV DECREASED GLUCOSE; Start 03/15/18 at 13:30 Dextrose (D50w Syringe) 50 ml Q15M PRN IV DECREASED GLUCOSE; Start 03/15/18 at 13:30 Glucagon (Glucagen) 1 mg Q15M PRN IM DECREASED GLUCOSE; Start 03/15/18 at 13:30 Glucose (Glutose) 15 gm Q15M PRN BUCCAL DECREASED GLUCOSE; Start 03/15/18 at 13:30 Insulin Aspart (Novolog Insulin Pen) (Adult SC Insulin - Mild Algorithm)... AC MEALS AND BEDTIME SC ; Start 03/15/18 at 17:35 Diagnostic Test (Pha) (Accu-Chek) 1 ea 02 XX ; Start 03/16/18 at 02:00 Tamsulosin HCl (Flomax) 0.4 mg HS PO Last administered on 03/22/18at 20:30; A dmin Dose 0.4 MG; Start 03/16/18 at 21:00 Amlodipine Besylate (Norvasc) 5 mg DAILY PO Last administered on 03/23/18at 08:31; Admin Dose 5 MG; Start 03/16/18 at 15:00 Pantoprazole (Protonix Tab) 40 mg DAILY PO Last administered on 03/23/18at 08:31; Admin Dose 40 MG; Start 03/21/18 at 09:00 Albuterol/ Ipratropium (Duoneb) 3 ml Q4H RESP THERAPY HHN Last administered on 03/23/18at 05:22; Admin Dose 3 ML; Start 03/21/18 at 17:00 Carvedilol (Coreg) 6.25 mg BID PO Last administered on 03/23/18at 08:31; Admin Dose 6.25 MG; Start 03/21/18 at 21:00 Apixaban (Eliquis) 10 mg BID PO Last administered on 03/23/18at 08:32; Admin Dose 10 MG; Start 03/22/18 at 21:00; Stop 03/29/18 at 09:01 Apixaban (Eliquis) 5 mg BID PO ; Start 03/29/18 at 21:00 Furosemide (Lasix) 40 mg BID DIURETICS IV Last administered on 03/23/18at 06:00; Admin Dose 40 MG; Start 03/22/18 at 18:00 CARLOS ARTHUR MD 03/23/18 1617: Assessment/Plan Assessment/Plan Assessment/Plan SEEN AND EXAMINED WITH SENIOR HEALTH EDUCATOR AT BEDSIDE SPOKE TO MARTHA POLY WHO EXPRESSED THAT FATHER WANTS TO GO HOME NO MATTER WHAT HE HAS DIARRHOEA STILL, SOB SLOWLY IMPROVING AND HAS TO ASSESSED BY PT NEEDS TO SEE IF HE NEEDS OXYGEN SHE WANTED HER FATHER TO GO HOME AND HAVE DECIDED ON HOSPICE CALLED [facility] THEY WILL TALK TO FAMILY DC HOME WITH [facility] PER FAMILY AND PATIENT Result Diagram: 03/23/18 0612 03/23/18 0612 GIO PURCELL Mar 23, 2018 12:39 CARLOS ARTHUR MD Mar 23, 2018 16:17
--- NOTE | 2018-03-23 13:31 | CONS ---
Date/Time of Note Date/Time of Note DATE: 03/23/18 TIME: 13:29 Assessment/Plan Assessment/Plan Assessment/Plan 1.Preop-now post-op s/p endoscopy - tolerated procedure well. 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 5.C diff - treated with anti-Bx now 6. Melena s/p endoscopy with AVM Result Diagram: 03/23/18 0612 03/23/18 0612 Results 24hrs Laboratory Tests Test 03/22/18 17:16 03/22/18 20:33 03/23/18 02:26 03/23/18 06:12 Bedside Glucose 104 145 95 White Blood Count 5.7 Red Blood Count 3.32 L Hemoglobin 10.5 L Hematocrit 31.5 L Mean Corpuscular 94.9 Volume Mean Corpuscular 31.6 Hemoglobin Mean Corpuscular 33.3 Hemoglobin Concent Red Cell 16.0 H Distribution Width Platelet Count 206 Mean Platelet Volume 9.3 Immature 0.200 Granulocytes % Neutrophils % 47.8 Lymphocytes % 34.9 Monocytes % 9.9 Eosinophils % 6.7 Basophils % 0.5 Nucleated Red Blood 0.0 Cells % Immature 0.010 Granulocytes # Neutrophils # 2.7 Lymphocytes # 2.0 Monocytes # 0.6 Eosinophils # 0.4 Basophils # 0.0 Nucleated Red Blood 0.0 Cells # Sodium Level 139 Potassium Level 3.5 Chloride Level 108 Carbon Dioxide Level 23 Anion Gap 8 Blood Urea Nitrogen 29 H Creatinine 1.82 H Est Glomerular Filtrat Rate mL/min Glucose Level 88 Calcium Level 8.6 Test 03/23/18 07:52 03/23/18 12:14 Bedside Glucose 93 121 Consultation Date/Type/Reason Admit Date/Time Mar 13, 2018 at 15:43 Initial Consult Date 03/14/18 Requesting Provider: SMITH MATSON MD 24 HR Interval Summary Free Text/Dictation NO acute events - BP stable - Cr on high side - sitting in a chair - better overall ROS: No fever, no chills, no nausea, no vomiting, no diarrhea/constipation No recent weight changes No chest pain, no PND, no orthopnea - improved SOB, + fatigue No dizziness, blurred vision No thirst, no heat or cold intolerance Exam/Review of Systems Vital Signs Vitals Vital Signs Date Temp Pulse Resp B/P (MAP) Pulse Ox O2 O2 Flow FiO2 Time Delivery Rate 03/23/18 77 20 96 21 13:28 03/23/18 98.0 147/61 11:17 (89) 03/23/18 Nasal 2.0 09:08 Cannula Intake and Output 03/22/18 03/22/18 03/23/18 1515:00 23:00 07:00 IntakeIntake Total 720 ml 300 ml BalanceBalance 720 ml 300 ml Exam General: WN/WD/NAD, AOx 2-3 HEENT: Unicetric/atraumatic/EOMI ( follow commands) NECK: JVD elevated, no thyromegaly Lymph: no lymphadenopathy HEART: regular with no S3, II/ systolic murmur at apex LUNGS: Coarse sounds ABD: soft, NT, ND, +BS : Intact Neuro: non focal SKIN: chronic changes EXT: trace edema Medications Medications Current Medications Ondansetron HCl (Zofran Inj) 4 mg Q6H PRN IV NAUSEA AND/OR VOMITING; Start 03/13/18 at 19:00 Acetaminophen (Tylenol Tab) 650 mg Q6H PRN PO MILD PAIN(1-3)OR ELEVATED TEMP; Start 03/13/18 at 19:00 Hydralazine HCl (Apresoline) 5 mg Q8 PRN IV sbp>160 Last administered on 03/16/18at 23:39; Admin Dose 5 MG; Start 03/14/18 at 16:30 Vancomycin HCl (Vancomycin Oral Syringe) 125 mg Q6 PO Last administered on 03/23/18at 12:16; Admin Dose 125 MG; Start 03/15/18 at 13:30 Miscellaneous Information 1 ea NOTE XX ; Start 03/15/18 at 13:30 Glucose (Glutose) 15 gm Q15M PRN PO DECREASED GLUCOSE; Start 03/15/18 at 13:30 Glucose (Glutose) 22.5 gm Q15M PRN PO DECREASED GLUCOSE; Start 03/15/18 at 13:30 Dextrose (D50w Syringe) 25 ml Q15M PRN IV DECREASED GLUCOSE; Start 03/15/18 at 13:30 Dextrose (D50w Syringe) 50 ml Q15M PRN IV DECREASED GLUCOSE; Start 03/15/18 at 13:30 Glucagon (Glucagen) 1 mg Q15M PRN IM DECREASED GLUCOSE; Start 03/15/18 at 13:30 Glucose (Glutose) 15 gm Q15M PRN BUCCAL DECREASED GLUCOSE; Start 03/15/18 at 13:30 Insulin Aspart (Novolog Insulin Pen) (Adult SC Insulin - Mild Algorithm)... AC MEALS AND BEDTIME SC ; Start 03/15/18 at 17:35 Diagnostic Test (Pha) (Accu-Chek) 1 ea 02 XX ; Start 03/16/18 at 02:00 Tamsulosin HCl (Flomax) 0.4 mg HS PO Last administered on 03/22/18 20:30; Admin Dose 0.4 MG; Start 03/16/18 at 21:00 Amlodipine Besylate (Norvasc) 5 mg DAILY PO Last administered on 03/23/18 08:31; Admin Dose 5 MG; Start 03/16/18 at 15:00 Pantoprazole (Protonix Tab) 40 mg DAILY PO Last administered on 03/23/18 08:31; Admin Dose 40 MG; Start 03/21/18 at 09:00 Albuterol/ Ipratropium (Duoneb) 3 ml Q4H RESP THERAPY HHN Last administered on 03/23/18 05:22; Admin Dose 3 ML; Start 03/21/18 at 17:00 Carvedilol (Coreg) 6.25 mg BID PO Last administered on 03/23/18 08:31; Admin Dose 6.25 MG; Start 03/21/18 at 21:00 Apixaban (Eliquis) 10 mg BID PO Last administered on 03/23/18at 08:32; Admin Dose 10 MG; Start 03/22/18 at 21:00; Stop 03/29/18 at 09:01 Apixaban (Eliquis) 5 mg BID PO ; Start 03/29/18 at 21:00 Furosemide (Lasix) 40 mg BID DIURETICS IV Last administered on 03/23/18 06:00; Admin Dose 40 MG; Start 03/22/18 at 18:00 KODAK CORTEZ MD Mar 23, 2018 13:31
--- NOTE | 2018-03-23 13:55 | PN ---
Date/Time of Note Date/Time of Note DATE: 03/23/18 TIME: 13:51 Assessment/Plan VTE Prophylaxis Risk score (from Ns)>0 risk: 11 [place] [facility] [place]CD contraindicated: other (scds) Pharmacological prophylaxis: other (scds) Lines/Catheters IV C[facility]ter Type [facility]from [facility] Saline Lock Urinary Cath still in place: No Assessment/Plan Hospital Course Assessment: Melena -EGD 03/19/18 Gastric AVM status post cautery Diverticulitis C. difficile colitis Abdominal pain 2/2 to above Stage IV Colon cancer - per family dx 8 months -Currently on chemotherapy Hepatic lesion 1.1cm, worrisome for metastatic lesion on imaging DM Hypertension CAD Aortic stenosis History of MVR Osteoarthritis BPH Plan: Diabetic diet Plavix/ASA- d/c'd Pt stated on Eliquis Monitor for overt signs of GI bleed Monitor H&H Transfuse for hemoglobin less than 7.5 Pt appears stable from GI point of view for out-pt management D/c planning per hospitalist Patient seen in collaboration with Dr. Laguerre/Manolo Subjective: HGB is stable. No c/o abd pain, nausea or vomiting. tolerating diet well Pt continues to have dark stools, spoke with staff stool described as dark brown, HGB stable. PHYSICAL EXAMINATION: GENERAL: Well developed, well nourished, alert & oriented x 3, in no acute distress SKIN: No lesions.. EYES: Pupils equal reactive to light, no discharge. EARS/NOSE AND THROAT: Ears normal, nose normal, oropharynx normal. NECK: Supple, no masses, thyroid normal, JVP within normal limits, carotids normal without bruits. CHEST: Inspection within normal limits. CARDIOVASCULAR: Heart: Regular rate and rhythm. RESPIRATORY: diminished GASTROINTESTINAL AND LIVER: Abdomen: Soft, obese, non tenderness, non-distended, no hernias, no masses, no organomegaly, no ascites, no guarding, no rebound tenderness, normoactive bowel sounds. Rectal: Deferred. GENITOURINARY: Male genitalia within normal limits. EXTREMITIES: No cyanosis, clubbing or edema. Result Diagram: 03/23/18 0612 03/23/18 0612 Results 24hrs Laboratory Tests Test 03/22/18 17:16 03/22/18 20:33 03/23/18 02:26 03/23/18 06:12 Bedside Glucose 104 145 95 White Blood Count 5.7 Red Blood Count 3.32 L Hemoglobin 10.5 L Hematocrit 31.5 L Mean Corpuscular 94.9 Volume Mean Corpuscular 31.6 Hemoglobin Mean Corpuscular 33.3 Hemoglobin Concent Red Cell 16.0 H Distribution Width Platelet Count 206 Mean Platelet Volume 9.3 Immature 0.200 Granulocytes % Neutrophils % 47.8 Lymphocytes % 34.9 Monocytes % 9.9 Eosinophils % 6.7 Basophils % 0.5 Nucleated Red Blood 0.0 Cells % Immature 0.010 Granulocytes # Neutrophils # 2.7 Lymphocytes # 2.0 Monocytes # 0.6 Eosinophils # 0.4 Basophils # 0.0 Nucleated Red Blood 0.0 Cells # Sodium Level 139 Potassium Level 3.5 Chloride Level 108 Carbon Dioxide Level 23 Anion Gap 8 Blood Urea Nitrogen 29 H Creatinine 1.82 H Est Glomerular Filtrat Rate mL/min Glucose Level 88 Calcium Level 8.6 Test 03/23/18 07:52 03/23/18 12:14 Bedside Glucose 93 121 Exam/Review of Systems Vital Signs Vitals Vital Signs Date Temp Pulse Resp B/P (MAP) Pulse Ox O2 O2 Flow FiO2 Time Delivery Rate 03/23/18 77 20 96 21 13:28 03/23/18 98.0 147/61 11:17 (89) 03/23/18 Nasal 2.0 09:08 Cannula Intake and Output 03/22/18 03/22/18 03/23/18 1515:00 23:00 07:00 IntakeIntake Total 720 ml 300 ml BalanceBalance 720 ml 300 ml Medications Medications Current Medications Ondansetron HCl (Zofran Inj) 4 mg Q6H PRN IV NAUSEA AND/OR VOMITING; Start 03/13/18 at 19:00 Acetaminophen (Tylenol Tab) 650 mg Q6H PRN PO MILD PAIN(1-3)OR ELEVATED TEMP; Start 03/13/18 at 19:00 Hydralazine HCl (Apresoline) 5 mg Q8 PRN IV sbp>160 Last administered on 03/16/18at 23:39; Admin Dose 5 MG; Start 03/14/18 at 16:30 Vancomycin HCl (Vancomycin Oral Syringe) 125 mg Q6 PO Last administered on 03/23/18at 12:16; Admin Dose 125 MG; Start 03/15/18 at 13:30 Miscellaneous Information 1 ea NOTE XX ; Start 03/15/18 at 13:30 Glucose (Glutose) 15 gm Q15M PRN PO DECREASED GLUCOSE; Start 03/15/18 at 13:30 Glucose (Glutose) 22.5 gm Q15M PRN PO DECREASED GLUCOSE; Start 03/15/18 at 13:30 Dextrose (D50w Syringe) 25 ml Q15M PRN IV DECREASED GLUCOSE; Start 03/15/18 at 13:30 Dextrose (D50w Syringe) 50 ml Q15M PRN IV DECREASED GLUCOSE; Start 03/15/18 at 13:30 Glucagon (Glucagen) 1 mg Q15M PRN IM DECREASED GLUCOSE; Start 03/15/18 at 13:30 Glucose (Glutose) 15 gm Q15M PRN BUCCAL DECREASED GLUCOSE; Start 03/15/18 at 13:30 Insulin Aspart (Novolog Insulin Pen) (Adult SC Insulin - Mild Algorithm)... AC MEALS AND BEDTIME SC ; Start 03/15/18 at 17:35 Diagnostic Test (Pha) (Accu-Chek) 1 ea 02 XX ; Start 03/16/18 at 02:00 Tamsulosin HCl (Flomax) 0.4 mg HS PO Last administered on 03/22/18at 20:30; Admin Dose 0.4 MG; Start 03/16/18 at 21:00 Amlodipine Besylate (Norvasc) 5 mg DAILY PO Last administered on 03/23/18at 08:31; Admin Dose 5 MG; Start 03/16/18 at 15:00 Pantoprazole (Protonix Tab) 40 mg DAILY PO Last administered on 03/23/18at 08:31; Admin Dose 40 MG; Start 03/21/18 at 09:00 Albuterol/ Ipratropium (Duoneb) 3 ml Q4H RESP THERAPY HHN Last administered on 03/23/18at 05:22; Admin Dose 3 ML; Start 03/21/18 at 17:00 Carvedilol (Coreg) 6.25 mg BID PO Last administered on 03/23/18at 08:31; Admin Dose 6.25 MG; Start 03/21/18 at 21:00 Apixaban (Eliquis) 10 mg BID PO Last administered on 03/23/18at 08:32; Admin Dose 10 MG; Start 03/22/18 at 21:00; Stop 03/29/18 at 09:01 Apixaban (Eliquis) 5 mg BID PO ; Start 03/29/18 at 21:00 Furosemide (Lasix) 40 mg BID DIURETICS IV Last administered on 03/23/18at 06:00; Admin Dose 40 MG; Start 03/22/18 at 18:00 SILVINA XIAO Mar 23, 2018 13:55
--- NOTE | 2018-03-23 15:06 | RADRPT ---
Echocardiogram Report Patient Name: MARY ANN MARTINES Gender: Male Date: 1935 Study Date: 23-Mar-2018 Wool Scourer: Alyssa Pack RDCS Location: [facility] Ref. Physician: CARLIE JEAN BAPTISTE Quality: Technically Difficult Study Procedures: Transthoracic echocardiogram with complete 2D, M-Mode, and doppler examination. Indications: Congestive Heart Failure. 2D/M Mode Doppler Measurement Value Normal Ranges Measurement Value Normal Ranges LVIDd 2D 5.1 3.5 - 5.6 cm AV Peak Jamel 2.0 m/sec LVIDs 2D 3.5 2.1 - 4.1 cm AV Peak PG 16.0 mmHg LVPWd 2D 1.2 0.6 - 1.1 cm LVOT Peak Jamel 1.0 m/sec IVSd 2D 1.2 0.6 - 1.1 cm LVOT Peak PG 4.0 mmHg LA Dimen 2D 3.1 2.3 - 4.0 cm MV E Peak Jamel 1.1 m/sec MV A Peak Jamel 0.5 m/sec MV E/A 2.4 MV Decel Time 204 msec Med E` Jamel 0.1 m/sec MV E/A 2.4 PV Peak Jamel 1.0 m/sec PV Peak PG 4.0 mmHg Findings Left Ventricle: Normal left ventricular systolic function. Normal left ventricular cavity size. Normal left ventricular wall thickness. Mild concentric left ventricular hypertrophy. Ejection fraction is visually estimated at 55 %. Tissue Doppler/Mitral Doppler indices are within normal limits. Right Ventricle: Normal right ventricular size. Normal right ventricular systolic function. Left Atrium: The left atrium is normal in size. Right Atrium: The right atrium is normal in size. Mitral Valve: Normal appearance of the mitral valve. Mild mitral annular calcification. Trace mitral regurgitation. Aortic Valve: Aortic cusps appear mildly calcified. Tricuspid Valve: Normal appearance of the tricuspid valve. Pulmonic Valve: Normal pulmonic valve appearance. Pericardium: Normal pericardium with no significant pericardial effusion. Aorta: Normal aortic root. IVC: The IVC is not well visualized. Conclusions Normal left ventricular systolic function. Normal left ventricular cavity size. Normal left ventricular wall thickness. Mild concentric left ventricular hypertrophy. Ejection fraction is visually estimated at 55 %. Tissue Doppler/Mitral Doppler indices are within normal limits. Normal appearance of the mitral valve. Mild mitral annular calcification. Trace mitral regurgitation. Aortic cusps appear mildly calcified. Normal appearance of the tricuspid valve. Electronically Signed By: Dima Pantoja 23-Mar-2018 15:06:22 -0800 Patient Name: MARY ANN MARTINES Study Date: 23-Mar-[id number]
--- NOTE | 2018-03-23 16:42 | CONS ---
Date/Time of Note Date/Time of Note DATE: 03/23/18 TIME: 16:41 Assessment/Plan Assessment/Plan Result Diagram: 03/23/18 0612 03/23/18 0612 Results 24hrs Laboratory Tests Test 03/22/18 17:16 03/22/18 20:33 03/23/18 02:26 03/23/18 06:12 Bedside Glucose 104 145 95 White Blood Count 5.7 Red Blood Count 3.32 L Hemoglobin 10.5 L Hematocrit 31.5 L Mean Corpuscular 94.9 Volume Mean Corpuscular 31.6 Hemoglobin Mean Corpuscular 33.3 Hemoglobin Concent Red Cell 16.0 H Distribution Width Platelet Count 206 Mean Platelet Volume 9.3 Immature 0.200 Granulocytes % Neutrophils % 47.8 Lymphocytes % 34.9 Monocytes % 9.9 Eosinophils % 6.7 Basophils % 0.5 Nucleated Red Blood 0.0 Cells % Immature 0.010 Granulocytes # Neutrophils # 2.7 Lymphocytes # 2.0 Monocytes # 0.6 Eosinophils # 0.4 Basophils # 0.0 Nucleated Red Blood 0.0 Cells # Sodium Level 139 Potassium Level 3.5 Chloride Level 108 Carbon Dioxide Level 23 Anion Gap 8 Blood Urea Nitrogen 29 H Creatinine 1.82 H Est Glomerular Filtrat Rate mL/min Glucose Level 88 Calcium Level 8.6 Test 03/23/18 07:52 03/23/18 12:14 Bedside Glucose 93 121 Consultation Date/Type/Reason Admit Date/Time Mar 13, 2018 at 15:43 Initial Consult Date 03/14/18 Type of Consult ONCOLOGY Requesting Provider: SMITH MATSON MD Exam/Review of Systems Vital Signs Vitals Vital Signs Date Temp Pulse Resp B/P (MAP) Pulse Ox O2 O2 Flow FiO2 Time Delivery Rate 03/23/18 75 16:12 03/23/18 98.5 18 158/68 96 15:59 (98) 03/23/18 21 13:28 03/23/18 Nasal 2.0 09:08 Cannula Intake and Output 03/22/18 03/22/18 03/23/18 1515:00 23:00 07:00 IntakeIntake Total 720 ml 300 ml BalanceBalance 720 ml 300 ml Medications Medications Current Medications Ondansetron HCl (Zofran Inj) 4 mg Q6H PRN IV NAUSEA AND/OR VOMITING; Start 03/13/18 at 19:00 Acetaminophen (Tylenol Tab) 650 mg Q6H PRN PO MILD PAIN(1-3)OR ELEVATED TEMP; Start 03/13/18 at 19:00 Hydralazine HCl (Apresoline) 5 mg Q8 PRN IV sbp>160 Last administered on 03/16/18at 23:39; Admin Dose 5 MG; Start 03/14/18 at 16:30 Vancomycin HCl (Vancomycin Oral Syringe) 125 mg Q6 PO Last administered on 03/23/18at 12:16; Admin Dose 125 MG; Start 03/15/18 at 13:30 Miscellaneous Information 1 ea NOTE XX ; Start 03/15/18 at 13:30 Glucose (Glutose) 15 gm Q15M PRN PO DECREASED GLUCOSE; Start 03/15/18 at 13:30 Glucose (Glutose) 22.5 gm Q15M PRN PO DECREASED GLUCOSE; Start 03/15/18 at 13:30 Dextrose (D50w Syringe) 25 ml Q15M PRN IV DECREASED GLUCOSE; Start 03/15/18 at 13:30 Dextrose (D50w Syringe) 50 ml Q15M PRN IV DECREASED GLUCOSE; Start 03/15/18 at 13:30 Glucagon (Glucagen) 1 mg Q15M PRN IM DECREASED GLUCOSE; Start 03/15/18 at 13:30 Glucose (Glutose) 15 gm Q15M PRN BUCCAL DECREASED GLUCOSE; Start 03/15/18 at 13:30 Insulin Aspart (Novolog Insulin Pen) (Adult SC Insulin - Mild Algorithm)... AC MEALS AND BEDTIME SC ; Start 03/15/18 at 17:35 Diagnostic Test (Pha) (Accu-Chek) 1 ea 02 XX ; Start 03/16/18 at 02:00 Tamsulosin HCl (Flomax) 0.4 mg HS PO Last administered on 03/22/18at 20:30; Admin Dose 0.4 MG; Start 03/16/18 at 21:00 Amlodipine Besylate (Norvasc) 5 mg DAILY PO Last administered on 03/23/18at 08:31; Admin Dose 5 MG; Start 03/16/18 at 15:00 Pantoprazole (Protonix Tab) 40 mg DAILY PO Last administered on 03/23/18at 08:31; Admin Dose 40 MG; Start 03/21/18 at 09:00 Albuterol/ Ipratropium (Duoneb) 3 ml Q4H RESP THERAPY HHN Last administered on 03/23/18at 05:22; Admin Dose 3 ML; Start 03/21/18 at 17:00 Carvedilol (Coreg) 6.25 mg BID PO Last administered on 03/23/18at 08:31; Admin Dose 6.25 MG; Start 03/21/18 at 21:00 Apixaban (Eliquis) 10 mg BID PO Last administered on 03/23/18at 08:32; Admin Dose 10 MG; Start 03/22/18 at 21:00; Stop 03/29/18 at 09:01 Apixaban (Eliquis) 5 mg BID PO ; Start 03/29/18 at 21:00 Furosemide (Lasix) 40 mg BID DIURETICS IV Last administered on 03/23/18at 06:00; Admin Dose 40 MG; Start 03/22/18 at 18:00 YARITZA LEACH Mar 23, 2018 16:42
--- NOTE | 2018-03-23 16:43 | CONS ---
Date/Time of Note Date/Time of Note DATE: 03/23/18 TIME: 16:42 Assessment/Plan Assessment/Plan Assessment/Plan #STAGE IV colon CA -pt currently under treatment with Dr. Vang -once the C diff resolves, pt can resume treatment #melena -HG stable- Hgb 10.5 today -EGD demonstrated gastritis -continue pantoprazole #Cdiff -continue FLagyl -continue current diet #HTN -continue current hypertensive medications # BLE swelling- No evidence of a deep vein thrombosis within the bilateral lower extremities; Thrombus in right tibial veins within the right calf. - Will start Eliquis 10 mg po BID X 7 days - Eliquis 5 mg po BID X 7 days thereafter A total of 40 minutes of face to face time was spent speaking with the patient/ , of which greater than 50% was spent in counseling and coordination of care and the detailed question and answer session. Dw staff Result Diagram: Result Diagram: 03/23/18 0612 03/23/18 0612 Results 24hrs Laboratory Tests Test 03/22/18 17:16 03/22/18 20:33 03/23/18 02:26 03/23/18 06:12 Bedside Glucose 104 145 95 White Blood Count 5.7 Red Blood Count 3.32 L Hemoglobin 10.5 L Hematocrit 31.5 L Mean Corpuscular 94.9 Volume Mean Corpuscular 31.6 Hemoglobin Mean Corpuscular 33.3 Hemoglobin Concent Red Cell 16.0 H Distribution Width Platelet Count 206 Mean Platelet Volume 9.3 Immature 0.200 Granulocytes % Neutrophils % 47.8 Lymphocytes % 34.9 Monocytes % 9.9 Eosinophils % 6.7 Basophils % 0.5 Nucleated Red Blood 0.0 Cells % Immature 0.010 Granulocytes # Neutrophils # 2.7 Lymphocytes # 2.0 Monocytes # 0.6 Eosinophils # 0.4 Basophils # 0.0 Nucleated Red Blood 0.0 Cells # Sodium Level 139 Potassium Level 3.5 Chloride Level 108 Carbon Dioxide Level 23 Anion Gap 8 Blood Urea Nitrogen 29 H Creatinine 1.82 H Est Glomerular Filtrat Rate mL/min Glucose Level 88 Calcium Level 8.6 Test 03/23/18 07:52 03/23/18 12:14 Bedside Glucose 93 121 Consultation Date/Type/Reason Admit Date/Time Mar 13, 2018 at 15:43 Initial Consult Date 03/14/18 Type of Consult ONCOLOGY Requesting Provider: SMITH MATSON MD Exam/Review of Systems Vital Signs Vitals Vital Signs Date Temp Pulse Resp B/P (MAP) Pulse Ox O2 O2 Flow FiO2 Time Delivery Rate 03/23/18 75 16:12 03/23/18 98.5 18 158/68 96 15:59 (98) 03/23/18 21 13:28 03/23/18 Nasal 2.0 09:08 Cannula Intake and Output 03/22/18 03/22/18 03/23/18 1515:00 23:00 07:00 IntakeIntake Total 720 ml 300 ml BalanceBalance 720 ml 300 ml Medications Medications Current Medications Ondansetron HCl (Zofran Inj) 4 mg Q6H PRN IV NAUSEA AND/OR VOMITING; Start 03/13/18 at 19:00 Acetaminophen (Tylenol Tab) 650 mg Q6H PRN PO MILD PAIN(1-3)OR ELEVATED TEMP; Start 03/13/18 at 19:00 Hydralazine HCl (Apresoline) 5 mg Q8 PRN IV sbp>160 Last administered on at 23:39; Admin Dose 5 MG; Start 03/14/18 at 16:30 Vancomycin HCl (Vancomycin Oral Syringe) 125 mg Q6 PO Last administered on 03/23/18at 12:16; Admin Dose 125 MG; Start 03/15/18 at 13:30 Miscellaneous Information 1 ea NOTE XX ; Start 03/15/18 at 13:30 Glucose (Glutose) 15 gm Q15M PRN PO DECREASED GLUCOSE; Start 03/15/18 at 13:30 Glucose (Glutose) 22.5 gm Q15M PRN PO DECREASED GLUCOSE; Start 03/15/18 at 13:30 Dextrose (D50w Syringe) 25 ml Q15M PRN IV DECREASED GLUCOSE; Start 03/15/18 at 13:30 Dextrose (D50w Syringe) 50 ml Q15M PRN IV DECREASED GLUCOSE; Start 03/15/18 at 13:30 Glucagon (Glucagen) 1 mg Q15M PRN IM DECREASED GLUCOSE; Start 03/15/18 at 13:30 Glucose (Glutose) 15 gm Q15M PRN BUCCAL DECREASED GLUCOSE; Start 03/15/18 at 13:30 Insulin Aspart (Novolog Insulin Pen) (Adult SC Insulin - Mild Algorithm)... AC MEALS AND BEDTIME SC ; Start 03/15/18 at 17:35 Diagnostic Test (Pha) (Accu-Chek) 1 ea 02 XX ; Start 03/16/18 at 02:00 Tamsulosin HCl (Flomax) 0.4 mg HS PO Last administered on 03/22/18at 20:30; Admin Dose 0.4 MG; Start 03/16/18 at 21:00 Amlodipine Besylate (Norvasc) 5 mg DAILY PO Last administered on 03/23/18 08:31; Admin Dose 5 MG; Start 03/16/18 at 15:00 Pantoprazole (Protonix Tab) 40 mg DAILY PO Last administered on 03/23/18 08:31; Admin Dose 40 MG; Start 03/21/18 at 09:00 Albuterol/ Ipratropium (Duoneb) 3 ml Q4H RESP THERAPY HHN Last administered on 03/23/18 05:22; Admin Dose 3 ML; Start 03/21/18 at 17:00 Carvedilol (Coreg) 6.25 mg BID PO Last administered on 03/23/18 08:31; Admin Dose 6.25 MG; Start 03/21/18 at 21:00 Apixaban (Eliquis) 10 mg BID PO Last administered on 03/23/18 08:32; Admin Dose 10 MG; Start 03/22/18 at 21:00; Stop 03/29/18 at 09:01 Apixaban (Eliquis) 5 mg BID PO ; Start 03/29/18 at 21:00 Furosemide (Lasix) 40 mg BID DIURETICS IV Last administered on 03/23/18at 06:00; Admin Dose 40 MG; Start 03/22/18 at 18:00 YARITZA LEACH Mar 23, 2018 16:43
[2018-03-23] MEDS: TAMSULOSIN (SR) 0.4 MG CAP PO SCH (21:14)
[2018-03-23] MEDS: hydrALAzine 20 MG INJ IV PRN (21:27)
[2018-03-24 00:09] VITALS: BP 138/63; PULSE 71; RESP 18
[2018-03-24] MEDS: ALBUTEROL/IPRATROPIUM (NEB) 3 ML AMP HHN SCH ×3 (00:42→08:00)
[2018-03-24] MEDS: VANCOMYCIN HCL 250 MG/5ML POSYG PO SCH ×3 (00:45→14:34)
[2018-03-24] MEDS: ACCUCHECK AT 2AM (Patients on SS coverage) XX SCH (02:00)
[2018-03-24 04:11] VITALS: BP 132/62; PULSE 76; RESP 18
[2018-03-24] MEDS: FUROSEMIDE 40 MG INJ IV SCH (06:46)
[2018-03-24] MEDS: Insulin NOVOLOG SS MILD Algorithm (SS with meals and bedtime) SC SCH ×2 (07:25→11:30)
[2018-03-24 07:47] VITALS: BP 168/67; PULSE 85; RESP 18
[2018-03-24] MEDS: APIXABAN 5 MG TABLET PO SCH (08:15)
[2018-03-24] MEDS: PANTOPRAZOLE (EC) 40 MG TAB PO SCH (08:16)
[2018-03-24] MEDS: AMLODIPINE 5 MG TAB PO SCH (08:16)
[2018-03-24] MEDS: hydrALAzine 20 MG INJ IV PRN (08:25)
[2018-03-24 09:00] VITALS: BP 144/61; PULSE 71
--- NOTE | 2018-03-24 11:00 | DS ---
Date/Time of Note Date/Time of Note DATE: 03/24/18 TIME: 11:00 Discharge Summary Admission/Discharge Info Admit Date/Time Mar 13, 2018 at 15:43 Discharge Date/Time Discharge Diagnosis C DIFF COLITIS DIVERTICULITIS. COLON CANCER Patient Condition: Stable Consults Dr Dent, GI, Dr Pickard, oncology. Dr Yang, cardiology Hospital Course THis 82 y.o male with history of cancer, on chemotherapy was transferred from [facility] with abdominal pain. He had diarrhea and found a c.dif. Additionally there was an partial obstruction. Pt was started on PO vanco, his symptoms got resolved. Partial SBO was resolved as well. However due to his NPO status we give him IV fluids and developed mild CHF. We correlate care with pt caregivers closely with daily updates. Pt had a new clot in his leg and was started on Eliquiz per Dr. Jj , hematology. After pt has AMS he was transferred to telemetry and CT scan brain was done, it was negative. Pt condition is stable and family decided to follow with hospice care. Ds:1. abd pain with CT diverticulitis , partial obstruction on CT scan 2. diverticulitis. 3. hx cancer on chemo 4. History of hypertension. 5. History of dyslipidemia. 6. History of coronary artery bypass graft. 7. History of aortic stenosis. 8. History of mitral valve repair. 9. Osteoarthritis. 10. Diabetes mellitus. 11. BPH. 12 Diarrhoea C diff, resolved 13. Anemia 14. Overweight 15. Right leg clot 16. AMS Home Meds Active Scripts Amlodipine Besylate* (Amlodipine Besylate*) 5 Mg Tablet, 5 MG PO DAILY for 30 Days, TAB Prov:CARLOS ARTHUR MD 03/18/18 Metronidazole* (Flagyl*) 500 Mg Tablet, 500 MG PO Q8 for 4 Days, TAB Prov:CARLOS ARTHUR MD 03/18/18 [Vancomycin Oral Syringe] 50 MG/ML SOLN No Conflict Check, 125 MG PO Q6 for 6 Days Prov:CARLOS ARTHUR MD 03/18/18 Tamsulosin Hcl* (Flomax*) 0.4 Mg Capsr, 0.4 MG PO HS for 28 Days, CAP Prov:SMITH MATSON MD 05/20/15 Clopidogrel Bisulfate (Clopidogrel) 75 Mg Tab, 75 MG PO DAILY for 28 Days, TAB Prov:SMITH MATSON MD 05/20/15 Carvedilol* (Coreg*) 12.5 Mg Tab, 12.5 MG PO BID for 28 Days, TAB Prov:SMITH MATSON MD 05/20/15 Atorvastatin Calcium* (Atorvastatin Calcium*) 20 Mg Tab, 20 MG PO HS for 28 Days, TAB Prov:SMITH MATSON MD 05/20/15 [place]-3/Dha/Epa/Fish Oil (FISH OIL EC 1,000 MG SOFTGEL) 1,000 Mg Cap, 1000 MG PO BID for 28 Days, BOT Prov:SMITH MATSON MD 05/20/15 Zolpidem Tartrate (Ambien Chuckie) 5 Mg Tab, 5 MG PO HS PRN for INSOMNIA for 14 Days, TAB Prov:SMITH MATSON MD 05/19/15 Acetaminophen* (Tylenol*) 325 Mg Tab, 650 MG PO Q4H PRN for PAIN AND OR ELEVATED TEMP for 14 Days, TAB Prov:SMITH MATSON MD 05/19/15 Insulin Glargine* (Lantus*) 100 Unit/Ml Soln, 11 UNIT SC AC BREAKFAST BEDTIME, #1 VIAL 3 Refills Prov:JESSICA MCCLENDON 12/27/13 Reported Medications Allopurinol* (Allopurinol*) 300 Mg Tablet, 300 MG PO DAILY, TAB 12/22/13 Clopidogrel Bisulfate (Clopidogrel) 75 Mg Tablet, 75 MG PO DAILY, TAB 12/22/13 Carvedilol* (Carvedilol*) 12.5 Mg Tablet, 12.5 MG PO BID, TAB 12/22/13 Docusate Sodium* (Colace*) 100 Mg Capsule, 100 MG PO BID, CAP 12/22/13 Zinc (ZINC) 50 Mg Tablet, 50 MG PO DAILY 12/22/13 Ascorbic Acid (Vitamin C) 500 Mg Tab, 1000 MG PO DAILY, TAB 12/22/13 Furosemide (Lasix) 40 Mg Tab, 40 MG PO DAILY, TAB 05/27/13 Tamsulosin Hcl* (Tamsulosin Hcl*) 0.4 Mg Cap.er.24h, 0.4 MG PO DAILY 05/27/13 Rosuvastatin Calcium* (Crestor*) 10 Mg Tablet, 10 MG PO DAILY 05/27/13 Aspirin Ec (Aspir 81) 81 Mg Tablet.dr, 81 MG PO DAILY 05/27/13 Follow-up Plan F/u pcp in 1 week f/u Dr Vang in 1-2 weeks return to ER if has abdominal pain/diarrhoea/fevers/chills Primary Care Provider Not On Staff Doctor Time spent on discharge: < 30 minutes Pending Labs Laboratory Tests Test 03/23/18 12:14 03/23/18 17:35 03/23/18 21:13 03/24/18 07:49 Bedside 121 140 163 125 Glucose mg/dL (70-220) mg/dL (70-220) mg/dL (70-220) mg/dL (70-220) GIO PURCELL Mar 24, 2018 11:00
--- NOTE | 2018-03-24 13:16 | PN ---
Date/Time of Note Date/Time of Note DATE: 03/24/18 TIME: 13:14 Assessment/Plan VTE Prophylaxis Risk score (from Ns)>0 risk: 6 SCD applied (from Ns): Yes Pharmacological prophylaxis: other (scds) Lines/Catheters IV Catheter Type (from Nrs): Saline Lock Urinary Cath still in place: No Assessment/Plan Hospital Course Assessment: Melena -EGD 03/19/18 Gastric AVM status post cautery Diverticulitis C. difficile colitis Abdominal pain 2/2 to above Stage IV Colon cancer - per family dx 8 months -Currently on chemotherapy Hepatic lesion 1.1cm, worrisome for metastatic lesion on imaging DM Hypertension CAD Aortic stenosis History of MVR Osteoarthritis BPH Plan: Pt to be d/c'd home on hospice GI will sign off, but will be available upon reconsult as needed Patient seen in collaboration with Dr. Laguerre/Manolo Subjective: Plan is for pt to go home today on hospice GI will sign off. PHYSICAL EXAMINATION: GENERAL: Well developed, well nourished, alert & oriented x 3, in no acute distress SKIN: No lesions.. EYES: Pupils equal reactive to light, no discharge. EARS/NOSE AND THROAT: Ears normal, nose normal, oropharynx normal. NECK: Supple, no masses, thyroid normal, JVP within normal limits, carotids normal without bruits. CHEST: Inspection within normal limits. CARDIOVASCULAR: Heart: Regular rate and rhythm. RESPIRATORY: diminished GASTROINTESTINAL AND LIVER: Abdomen: Soft, obese, non tenderness, non-distended, no hernias, no masses, no organomegaly, no ascites, no guarding, no rebound tenderness, normoactive bowel sounds. Rectal: Deferred. GENITOURINARY: Male genitalia within normal limits. EXTREMITIES: No cyanosis, clubbing or edema. Result Diagram: 03/23/18 0612 03/24/18 1105 Results 24hrs Laboratory Tests Test 03/23/18 17:35 03/23/18 21:13 03/24/18 07:49 03/24/18 11:05 Bedside Glucose 140 163 125 Sodium Level 138 Potassium Level 3.5 Chloride Level 106 Carbon Dioxide Level 20 L Anion Gap 12 Blood Urea Nitrogen 32 H Creatinine 1.58 H Est Glomerular Filtrat Rate mL/min Glucose Level 171 Calcium Level 9.0 Test 03/24/18 12:03 Bedside Glucose 136 Exam/Review of Systems Vital Signs Vitals Vital Signs Date Temp Pulse Resp B/P (MAP) Pulse Ox O2 O2 Flow FiO2 Time Delivery Rate 03/24/18 71 144/61 09:00 (88) 03/24/18 20 21 08:00 03/24/18 98.5 98 07:47 03/23/18 Nasal 2.0 20:00 Cannula Intake and Output 03/23/18 03/23/18 03/24/18 1515:00 23:00 07:00 IntakeIntake Total 600 ml 200 ml BalanceBalance 600 ml 200 ml Medications Medications Current Medications Ondansetron HCl (Zofran Inj) 4 mg Q6H PRN IV NAUSEA AND/OR VOMITING; Start 03/13/18 at 19:00 Acetaminophen (Tylenol Tab) 650 mg Q6H PRN PO MILD PAIN(1-3)OR ELEVATED TEMP; Start 03/13/18 at 19:00 Hydralazine HCl (Apresoline) 5 mg Q8 PRN IV sbp>160 Last administered on 03/24/18at 08:25; Admin Dose 5 MG; Start 03/14/18 at 16:30 Vancomycin HCl (Vancomycin Oral Syringe) 125 mg Q6 PO Last administered on 03/24/18at 06:46; Admin Dose 125 MG; Start 03/15/18 at 13:30 Miscellaneous Information 1 ea NOTE XX ; Start 03/15/18 at 13:30 Glucose (Glutose) 15 gm Q15M PRN PO DECREASED GLUCOSE; Start 03/15/18 at 13:30 Glucose (Glutose) 22.5 gm Q15M PRN PO DECREASED GLUCOSE; Start 03/15/18 at 13:30 Dextrose (D50w Syringe) 25 ml Q15M PRN IV DECREASED GLUCOSE; Start 03/15/18 at 13:30 Dextrose (D50w Syringe) 50 ml Q15M PRN IV DECREASED GLUCOSE; Start 03/15/18 at 13:30 Glucagon (Glucagen) 1 mg Q15M PRN IM DECREASED GLUCOSE; Start 03/15/18 at 13:30 Glucose (Glutose) 15 gm Q15M PRN BUCCAL DECREASED GLUCOSE; Start 03/15/18 at 13:30 Insulin Aspart (Novolog Insulin Pen) (Adult SC Insulin - Mild Algorithm)... AC MEALS AND BEDTIME SC ; Start 03/15/18 at 17:35 Diagnostic Test (Pha) (Accu-Chek) 1 ea 02 XX ; Start 03/16/18 at 02:00 Tamsulosin HCl (Flomax) 0.4 mg HS PO Last administered on 03/23/18 21:14; Admin Dose 0.4 MG; Start 03/16/18 at 21:00 Amlodipine Besylate (Norvasc) 5 mg DAILY PO Last administered on 03/24/18 08:16; Admin Dose 5 MG; Start 03/16/18 at 15:00 Pantoprazole (Protonix Tab) 40 mg DAILY PO Last administered on 03/24/18 08:16; Admin Dose 40 MG; Start 03/21/18 at 09:00 Albuterol/ Ipratropium (Duoneb) 3 ml Q4H RESP THERAPY HHN Last administered on 03/24/18 08:00; Admin Dose 3 ML; Start 03/21/18 at 17:00 Carvedilol (Coreg) 6.25 mg BID PO Last administered on 03/24/18 08:16; Admin Dose 6.25 MG; Start 03/21/18 at 21:00 Apixaban (Eliquis) 10 mg BID PO Last administered on 03/24/18at 08:15; Admin Dose 10 MG; Start 03/22/18 at 21:00; Stop 03/29/18 at 09:01 Apixaban (Eliquis) 5 mg BID PO ; Start 03/29/18 at 21:00 Furosemide (Lasix) 40 mg BID DIURETICS IV Last administered on 03/24/18at 06:46; Admin Dose 40 MG; Start 03/22/18 at 18:00 SILVINA XIAO Mar 24, 2018 13:16
[2018-03-24 14:37] VITALS: BP 151/67; PULSE 87; RESP 18
--- NOTE | 2018-03-24 15:21 | QN ---
Documentation Comment SEEN AND EXAMINED WITHJ COIL ASSEMBLER SPOKE TO MARTHA SCHUMACHER EXTENSIVELY AND EXPRESSED THAT FATHER WANTS TO GO HOME AND BE COMFORTABLE AND NEVER WANTS TO COME TO HOSPITAL [facility] CALLED, PT WILL GO TO HOME HOSPICE TODAY PT ALSO AGREED TODAY CARLOS ARTHUR MD Mar 24, 2018 15:21
[2018-03-29] MEDS ORDERED: APIXABAN 5 MG TABLET PO SCH (21:00)
== END 2018-03-24 15:34 | disposition hospice, home (50) | DRG 371 ==
LOC: PP2 15:43 → TEL 03-22 14:28 → 5EC 03-24 09:13
PROVIDERS: ADMIT Internal Medicine Nephrology; ATTEND Internal Medicine Nephrology
PROC: 0W3P8ZZ Control Bleeding in Gastrointestinal Tract, Via Natural or Artificial Opening Endoscopic (ICD-10-PCS; principal; 2018-03-19 16:30)
DX: A04.72 Enterocolitis due to Clostridium difficile, not specified as recurrent (principal); K31.811 Angiodysplasia of stomach and duodenum with bleeding; K57.32 Diverticulitis of large intestine without perforation or abscess without bleeding; C18.9 Malignant neoplasm of colon, unspecified; E87.2 Acidosis; I82.441 Acute embolism and thrombosis of right tibial vein; K56.600 Partial intestinal obstruction, unspecified as to cause; E11.9 Type 2 diabetes mellitus without complications; N40.0 Benign prostatic hyperplasia without lower urinary tract symptoms; E78.5 Hyperlipidemia, unspecified; K31.819 Angiodysplasia of stomach and duodenum without bleeding; D64.9 Anemia, unspecified; E66.3 Overweight; Z68.29 Body mass index [BMI] 29.0-29.9, adult; I50.9 Heart failure, unspecified; I11.0 Hypertensive heart disease with heart failure; Z95.2 Presence of prosthetic heart valve; Z86.73 Personal history of transient ischemic attack (TIA), and cerebral infarction without residual deficits; Z95.1 Presence of aortocoronary bypass graft
CPT/HCPCS: 70450; 71045; 80048; 80053; 82962; 83036; 83735; 84100; 85014; 85018; 85025; 87075; 87081; 87400; 93306; 93970; 94640; 94664; C9113; J0360; J0696; J1815; J1940; J7042

== ENCOUNTER 2018-07-15 20:06 | Inpatient (IN) | payer MEDICARE, OTHER ==
[~2018-07-15] VITALS: Ht 165.1 cm; Wt 69.9 kg
[~2018-07-15 20:06] MED LIST changes: +AMLO-145 PO; -ASPI325T29 PO; -FURO-110 PO; -LISI-523 PO; -LOSA25TA2 PO; +METR500T PO; -POTA10TA15 PO; -ROSU10TA55 PO; +RSV10T PO; +Vancomycin Oral Syringe PO
[2018-07-15 21:15] VITALS: BP 122/58; PULSE 93; RESP 18; Ht 165.1 cm; Wt 69.9 kg
[2018-07-15] MEDS: HYDROmorphONE 0.5 MG/0.5 ML SYG SC PRN (22:25)
[2018-07-15] MEDS ORDERED: ONDANSETRON 4 MG TAB PO PRN (22:30)
[2018-07-16 02:00] VITALS: BP 122/77; PULSE 96; RESP 18
[2018-07-16] MEDS: HYDROmorphONE 0.5 MG/0.5 ML SYG SC PRN ×4 (03:13→20:55)
[2018-07-16 08:00] VITALS: BP 116/56; PULSE 95; RESP 18
[2018-07-16 14:39] VITALS: BP 116/63; PULSE 16; PULSE 89; PULSE 96; RESP 16
--- NOTE | 2018-07-16 17:04 | QN ---
Documentation Comment PT SEEN AND EXAMINED CARLOS ARTHUR MD July 16, 2018 17:04
--- NOTE | 2018-07-16 17:48 | HP ---
DATE OF ADMISSION: 07/15/2018 REASON FOR ADMISSION: Transferred from [facility]. HISTORY OF PRESENTING ILLNESS: This is an 83-year-old male with a past medical history of colon cancer on chemotherapy, history of CKD, history of diverticulitis, history of multiple hospitalizations, CABG, coronary artery disease, systolic heart failure with EF of 30%, multiple admissions in the past in [facility] who was admitted to [facility] on 07/11/2018 secondary to severe abdominal pain. The patient had been followed by ____ as an outpatient and had received chemotherapy. The patient had a CT of the abdomen and pelvis that showed bowel perforation, bilateral inguinal hernia, umbilical hernia, epigastric midline hernia and left colonic diverticulosis. The patient was found to have acute bowel obstruction. The patient's case was discussed with the family and patient who agreed to be DNR. A palliative care consultation was requested. The patient was not deemed as a surgical candidate due to comorbidities. The patient was transferred to [facility] due to insurance reasons. The patient had requested not to be on any IV medications or any needles and was started on clear liquid diet there. PAST MEDICAL HISTORY: 1. Metastatic colon cancer. 2. History of diverticulitis. 3. History of CABG. 4. History of coronary artery disease. 5. History of valvular heart disease. 6. CHF with EF of 30%. ALLERGIES: Negative. PAST SURGICAL HISTORY: Significant for mitral valve repair. MEDICATIONS AT HOME: 1. Plavix. 2. Flomax. 3. Januvia. 4. Coenzyme Q10. 5. ____ 6. Namenda. 7. Multiple vitamins. 8. Protonix. 9. Aspirin. 10. Insulin. 11. Ergocalciferol. 12. Lisinopril. 13. Zofran. 14. Coreg. Currently, the patient is on: 1. Zofran p.o. 2. Dilaudid subcutaneously. SOCIAL HISTORY: Negative at this point. REVIEW OF SYSTEMS: The patient is able to answer some questions. Knows his name, knows where he is, responds to the family, answers some questions. Complains of some abdominal pain, some cough. PHYSICAL EXAMINATION: VITAL SIGNS: Currently, blood pressure 116/63, afebrile, heart rate 96, respirations 16. GENERAL: The patient is awake, alert, oriented. HEENT: Pupils are round, reactive to light. NECK: Supple. LUNGS: Decreased breath sounds bilaterally. HEART: Regular rate and rhythm. The patient has a systolic murmur. ABDOMEN: Distended, tenderness diffuse present. Abdominal wall hernia noted. Groin hernia noted. The patient has no bowel sound in the left lower quadrant. EXTREMITIES: A 2+ edema. LABORATORY DATA: None. ASSESSMENT AND PLAN: This is an 83-year-old male with known metastatic colon cancer, status post chemotherapy, now with: 1. Acute peritonitis. 2. Bowel obstruction. 3. Chronic kidney disease. 4. History of elevated troponin. 5. History of sepsis. 6. Coronary artery disease. 7. Coronary artery bypass. PLAN: At this period of time, the patient is admitted to med-surg. The patient is DNR/DNI. I spoke to the daughter who wants to keep him comfortable. The patient has requested no IV pain medicine. He is currently on subcutaneous Dilaudid. The patient has currently Garcia in place and on clear liquid diet. I spoke to the daughter, Allison, over the phone. Rest of the treatment will depend on the patient's hospitalization course. Dictated By: CARLOS KIRKLAND/MELVI Conf#: [id number] DID#: [id number] CC: WENDY OLSEN MD; SMITH MATSON MD;*EndCC* MTDD
[2018-07-16 20:25] VITALS: BP 108/50; PULSE 86; RESP 19
[2018-07-17 02:15] VITALS: BP 130/63; PULSE 91; RESP 30
[2018-07-17] MEDS: HYDROmorphONE 0.5 MG/0.5 ML SYG SC PRN ×4 (02:19→19:03)
[2018-07-17 03:06] VITALS: RESP 30
[2018-07-17] MEDS ORDERED: FUROSEMIDE 20 MG TAB PO ONE (06:06)
--- NOTE | 2018-07-17 15:52 | PN ---
Date/Time of Note Date/Time of Note DATE: 07/17/18 TIME: 15:47 Assessment/Plan VTE Prophylaxis Risk score (from [facility])>0 risk: 3 SCD applied (from [facility]): No SCD contraindicated: low risk/ambulating Pharmacological prophylaxis: NA/contraindicated Pharm contraindication: low risk/ambulating Lines/Catheters Urinary Cath still in place: Yes Reason Cath still needed: urinary retention Assessment/Plan Assessment/Plan his is an 83-year-old male with # metastatic colon cancer, status post chemotherapy, now with: # Acute peritonitis.. Bowel obstruction. #. Chronic kidney disease. #. History of elevated troponin. #. History of sepsis. # Coronary artery disease. #. Coronary artery bypass. # CHF pLAN - Spoke to Dr Noel who had sent pt from [facility] and Guerda hinojosa, plan was to keep pt comfortable in hospital - guerda does want to sign any consents with hospice, does not want any SNIF and does not want iv pain meds/iv , just want to honor pts last wishes - cld per family request - 02 if needed sub q dilaudid and zofran Subjective 24 Hr Interval Summary Free Text/Dictation denies any pain Exam/Review of Systems Exam Vitals Vital Signs Date Temp Pulse Resp B/P (MAP) Pulse Ox O2 O2 Flow FiO2 Time Delivery Rate 07/17/18 Nasal 2.0 09:19 Cannula 07/17/18 30 03:06 07/17/18 97.7 91 130/63 95 02:15 (85) Intake and Output 07/16/18 07/16/18 07/17/18 1414:59 22:59 06:59 IntakeIntake Total 59 ml 400 ml OutputOutput Total 500 ml BalanceBalance 59 ml -100 ml Exam pt awake,alert neck :supple hypoactivebowel sounds 2+edema Medications Medication Current Medications Hydromorphone HCl (Dilaudid) 0.2 mg Q2H PRN SC pain Last administered on 07/17/18at 09:05; Admin Dose 0.2 MG; Start 07/15/18 at 22:30 Ondansetron HCl (Zofran Tab) 4 mg Q6H PRN PO NAUSEA AND/OR VOMITING; Start 07/15/18 at 22:30 CARLOS ARTHUR MD July 17, 2018 15:52
[2018-07-17 19:13] VITALS: BP 119/56; PULSE 101; RESP 24
[2018-07-18] MEDS: HYDROmorphONE 0.5 MG/0.5 ML SYG SC PRN ×4 (00:13→17:39)
[2018-07-18 01:55] VITALS: BP 119/63; PULSE 79; RESP 24
[2018-07-18 07:34] VITALS: BP 148/70; PULSE 107; RESP 20
[2018-07-18 14:00] VITALS: BP 137/64; PULSE 96; RESP 28
--- NOTE | 2018-07-18 16:20 | PN ---
Date/Time of Note Date/Time of Note DATE: 07/18/18 TIME: 16:11 Assessment/Plan VTE Prophylaxis Risk score (from [facility])>0 risk: 3 SCD applied (from [facility]): No SCD contraindicated: low risk/ambulating Pharmacological prophylaxis: NA/contraindicated Pharm contraindication: low risk/ambulating Lines/Catheters Urinary Cath still in place: Yes Reason Cath still needed: urinary retention Assessment/Plan Assessment/Plan 83-year-old male with # metastatic colon cancer, status post chemotherapy, now with: # Acute peritonitis.. Bowel obstruction. #. Chronic kidney disease. #. History of elevated troponin. #. History of sepsis. # Coronary artery disease. #. Coronary artery bypass. # CHF pLAN - Spoke to Dr Noel who had sent pt from [facility] and Guerda garcia, plan was to keep pt comfortable in hospital - guerda does want to sign any consents with hospice, does not want any SNIF and does not want iv pain meds/iv , just want to honor pts last wishes - cld per family request - 02 if needed sub q mayda and brenda spoke to guerda again and explained to her that pt can be seen by hospice and still be kept in inpatient but guerda Garcia does not want to do that, she was quite angry over phone Spoke to Dr Noel who will talk to guerda over phone Subjective 24 Hr Interval Summary Free Text/Dictation per pt has been agitated in am spoke to guerda garcia over phone Exam/Review of Systems Exam Vitals Vital Signs Date Temp Pulse Resp B/P (MAP) Pulse Ox O2 O2 Flow FiO2 Time Delivery Rate 07/18/18 Nasal 2.0 14:25 Cannula 07/18/18 97.7 96 28 137/64 98 14:00 (88) Intake and Output 07/17/18 07/17/18 07/18/18 1515:00 23:00 07:00 IntakeIntake Total 480 ml 450 ml OutputOutput Total 950 ml 600 ml BalanceBalance -470 ml -150 ml Exam pt awake,alert neck :supple hypoactivebowel sounds 2+edema Medications Medications Medication Current Medications Hydromorphone HCl (Dilaudid) 0.2 mg Q2H PRN SC pain Last administered on 07/18/18at 08:43; Admin Dose 0.2 MG; Start 07/15/18 at 22:30 Ondansetron HCl (Zofran Tab) 4 mg Q6H PRN PO NAUSEA AND/OR VOMITING; Start 07/15/18 at 22:30 CARLOS ARTHUR MD July 18, 2018 16:19
[2018-07-18 20:21] VITALS: BP 128/63; PULSE 98; RESP 24
[2018-07-19 02:00] VITALS: BP 132/69; PULSE 97; RESP 18
[2018-07-19] MEDS: HYDROmorphONE 0.5 MG/0.5 ML SYG SC PRN ×3 (02:34→19:41)
[2018-07-19 07:58] VITALS: BP 110/59; PULSE 98; RESP 18
--- NOTE | 2018-07-19 12:24 | PN ---
GIO PURCELL 07/19/18 1224: Date/Time of Note Date/Time of Note DATE: 07/19/18 TIME: 12:24 Assessment/Plan VTE Prophylaxis Risk score (from [facility])>0 risk: 6 SCD applied (from [facility]): No SCD contraindicated: other Pharmacological prophylaxis: other Pharm contraindication: other Lines/Catheters Urinary Cath still in place: Yes Reason Cath still needed: urinary retention Assessment/Plan Hospital Course # metastatic colon cancer, status post chemotherapy, # Acute peritonitis.. Bowel obstruction. #. Chronic kidney disease. #. History of elevated troponin. #. History of sepsis. # Coronary artery disease. #. Coronary artery bypass. # CHF pLAN spoke to guerda again and explained to her that pt can be seen by hospice and still be kept in inpatient but guerda Garcia does not want to do that, she was quite angry over phone Spoke to Dr Noel who will talk to guerda over phone Assessment/Plan - Spoke to [place] socially responsible investment adviser - plan was to keep pt comfortable in hospital - daughter does want to sign any consents with hospice, does not want any SNF and does not want iv pain meds/iv , just want to honor pts last wishes - 02 if needed -sub q dilaudid and zofran Subjective 24 Hr Interval Summary Subjective hx not possible: pt non-verbal Skin: laceration Exam/Review of Systems Exam Vitals Vital Signs Date Temp Pulse Resp B/P (MAP) Pulse Ox O2 O2 Flow FiO2 Time Delivery Rate 07/19/18 98.0 98 18 110/59 99 Room Air 07:58 (76) 07/18/18 2.0 21:29 Intake and Output 07/18/18 07/18/18 07/19/18 1515:00 23:00 07:00 IntakeIntake Total 760 ml 120 ml BalanceBalance 760 ml 120 ml Constitutional: alert, frail Neck: supple Cardiovascular: regular rate and rhythm Gastrointestinal: soft Medications Medication Current Medications Hydromorphone HCl (Dilaudid) 0.2 mg Q2H PRN SC pain Last administered on 07/19/18at 11:17; Admin Dose 0.2 MG; Start 07/15/18 at 22:30 Ondansetron HCl (Zofran Tab) 4 mg Q6H PRN PO NAUSEA AND/OR VOMITING; Start 07/15/18 at 22:30 CARLOS ARTHUR MD 07/19/18 1539: GIO PURCELL July 19, 2018 12:24 CARLOS ARTHUR MD July 19, 2018 15:39
[2018-07-19] MEDS ORDERED: morphine LIQ (20 MG/ML PO SYG) SL PRN (14:30)
[2018-07-19] MEDS: SCOPOLAMINE 1.5 MG PATCH TRANSDERM SCH (15:13)
[2018-07-19 19:49] VITALS: BP 143/65; PULSE 110; RESP 18
[2018-07-20] MEDS: HYDROmorphONE 0.5 MG/0.5 ML SYG SC PRN ×3 (01:33→15:04)
[2018-07-20 08:52] VITALS: BP 121/57; PULSE 100; RESP 17
--- NOTE | 2018-07-20 11:08 | PN ---
Date/Time of Note Date/Time of Note DATE: 07/20/18 TIME: 11:04 Assessment/Plan VTE Prophylaxis Risk score (from [facility])>0 risk: 6 SCD applied (from [facility]): No SCD contraindicated: other Pharmacological prophylaxis: other Pharm contraindication: other Lines/Catheters Urinary Cath still in place: Yes Reason Cath still needed: urinary retention Assessment/Plan Hospital Course # metastatic colon cancer, status post chemotherapy, # Acute peritonitis. Bowel obstruction. #. Chronic kidney disease. #. History of elevated troponin. #. History of sepsis. # Coronary artery disease. #. Coronary artery bypass. # CHF # ineffective family coping Assessment/Plan - plan was to keep pt comfortable in hospital with stabilizing oral meds and transfer to other facility per pt family wish - daughter does want to sign any consents with hospice, does not want any SNF and does not want iv pain meds/iv , just want to honor pts last wishes - morphine sublingual -sub q Dilaudid and Zofran. -comfort measure Subjective 24 Hr Interval Summary Free Text/Dictation no pain Exam/Review of Systems Exam Vitals Vital Signs Date Temp Pulse Resp B/P (MAP) Pulse Ox O2 O2 Flow FiO2 Time Delivery Rate 07/20/18 Nasal 2.0 09:42 Cannula 07/20/18 98.9 100 17 121/57 99 08:52 (78) Intake and Output 07/19/18 07/19/18 07/20/18 1515:00 23:00 07:00 IntakeIntake Total 240 ml OutputOutput Total 700 ml BalanceBalance -700 ml 240 ml Constitutional: frail Psych: confusion Respiratory: diminished breath sounds Cardiovascular: regular rate and rhythm Gastrointestinal: soft Musculoskeletal: muscle weakness Medications Medication Current Medications Ondansetron HCl (Zofran Tab) 4 mg Q6H PRN PO NAUSEA AND/OR VOMITING; Start 07/15/18 at 22:30 Hydromorphone HCl (Dilaudid) 0.5 mg Q2H PRN SC PAIN LEVEL 4-7 Last administered on 07/20/18at 10:14; Admin Dose 0.5 MG; Start 07/19/18 at 14:30 Scopolamine (Transderm-Scop) 1 patch Q72H TRANSDERM Last administered on 07/03 09/20at 15:13; Admin Dose 1 PATCH; Start 07/19/18 at 14:30 Morphine Sulfate (Roxanol) 5 mg Q3H PRN SL SEVERE PAIN LEVEL 7-10 Last administered on 07/20/18at 00:05; Admin Dose 5 MG; Start 07/19/18 at 14:30 GIO PURCELL July 20, 2018 11:08
[2018-07-20 15:18] VITALS: BP 139/58; PULSE 105; RESP 18
[2018-07-20] MEDS ORDERED: HYDROmorphONE 0.5 MG/0.5 ML SYG SC SCH (17:00)
[2018-07-20 21:04] VITALS: BP 139/66; PULSE 109; RESP 18
[2018-07-20] MEDS: HYDROmorphONE 0.5 MG/0.5 ML SYG SC SCH (21:16)
[2018-07-21] MEDS: HYDROmorphONE 0.5 MG/0.5 ML SYG SC SCH ×6 (01:28→20:50)
[2018-07-21 08:40] VITALS: BP 97/49; PULSE 98; RESP 17
--- NOTE | 2018-07-21 11:40 | PN ---
Date/Time of Note Date/Time of Note DATE: 07/21/18 TIME: 11:37 Assessment/Plan VTE Prophylaxis Risk score (from [facility])>0 risk: 6 SCD applied (from [facility]): No SCD contraindicated: other Pharmacological prophylaxis: other Pharm contraindication: other Lines/Catheters Urinary Cath still in place: Yes Reason Cath still needed: urinary retention Assessment/Plan Hospital Course # metastatic colon cancer, status post chemotherapy, # Acute peritonitis. Bowel obstruction. #. Chronic kidney disease. #. History of elevated troponin. #. History of sepsis. # Coronary artery disease. #. Coronary artery bypass. # CHF # ineffective family coping Assessment/Plan - plan was to keep pt comfortable in hospital with stabilizing oral meds and transfer to other facility per pt family wish -pt was d.c yesterday abut family refused to take him home, insisting on dying in hospital - daughter does want to sign any consents with hospice, does not want any SNF and does not want iv pain meds/iv , just want to honor pts last wishes - morphine sublingual -sub q Dilaudid and Zofran. -comfort measure Subjective 24 Hr Interval Summary Free Text/Dictation sleepy Constitutional: no complaints Exam/Review of Systems Exam Vitals Vital Signs Date Temp Pulse Resp B/P (MAP) Pulse Ox O2 O2 Flow FiO2 Time Delivery Rate 07/21/18 98.4 98 17 97/49 (65) 98 08:40 07/20/18 20:30 Intake and Output 07/20/18 07/20/18 07/21/18 1515:00 23:00 07:00 IntakeIntake Total 20 ml OutputOutput Total 300 ml BalanceBalance -280 ml Exam sleeping Neck: supple Respiratory: diminished breath sounds Cardiovascular: regular rate and rhythm Medications Medication Current Medications Ondansetron HCl (Zofran Tab) 4 mg Q6H PRN PO NAUSEA AND/OR VOMITING; Start 07/15/18 at 22:30 Scopolamine (Transderm-Scop) 1 patch Q72H TRANSDERM Last administered on 07/19/18at 15:13; Admin Dose 1 PATCH; Start 07/19/18 at 14:30 Morphine Sulfate (Roxanol) 5 mg Q3H PRN SL SEVERE PAIN LEVEL 7-10 Last administered on 07/20/18at 00:05; Admin Dose 5 MG; Start 07/19/18 at 14:30 Hydromorphone HCl (Dilaudid) 0.5 mg Q4 SC Last administered on 07/21/18at 08:21; Admin Dose 0.5 MG; Start 07/20/18 at 21:00 GIO PURCELL July 21, 2018 11:40
[2018-07-21 14:57] VITALS: BP 112/59; PULSE 97; RESP 19
[2018-07-21] MEDS: SCOPOLAMINE 1.5 MG PATCH TRANSDERM SCH (15:26)
[2018-07-21 19:57] VITALS: BP 107/41; PULSE 113; RESP 18
[2018-07-22] MEDS: HYDROmorphONE 0.5 MG/0.5 ML SYG SC SCH ×6 (00:58→21:09)
[2018-07-22 07:19] VITALS: BP 125/62; PULSE 111
--- NOTE | 2018-07-22 16:56 | PN ---
Date/Time of Note Date/Time of Note DATE: 07/22/18 TIME: 16:54 Assessment/Plan VTE Pro[place]axis [place] [facility] [place]: 9 [place]CD applied [place] [facility] [place] No SCD contraindicated: low risk/ambulating Pharmacological prophylaxis: NA/contraindicated Pharm contraindication: low risk/ambulating Lines/Catheters Urinary Cath still in place: Yes Reason Cath still needed: urinary retention Assessment/Plan Assessment/Plan # metastatic colon cancer, status post chemotherapy, # Acute peritonitis. Bowel obstruction. #. Chronic kidney disease. #. History of elevated troponin. #. History of sepsis. # Coronary artery disease. #. Coronary artery bypass. # CHF # ineffective family coping Assessment/Plan - plan was to keep pt comfortable in hospital with stabilizing oral meds and transfer to other facility per pt family wish - daughter does want to sign any consents with hospice, does not want any SNF and does not want iv pain meds/iv , just want to honor pts last wishes - morphine sublingual -sub q Dilaudid and Zofran. - cld per family request -comfort measure Subjective 24 Hr Interval Summary Free Text/Dictation opens eyes to verbal commands no new events Exam/Review of Systems Exam Vitals Vital Signs Date Temp Pulse Resp B/P (MAP) Pulse Ox O2 O2 Flow FiO2 Time Delivery Rate 07/22/18 98.8 111 125/62 96 Room Air 07:19 (83) 07/21/18 18 19:57 07/20/18 20:30 Intake and Output 07/21/18 07/21/18 07/22/18 1515:00 23:00 07:00 OutputOutput Total 400 ml BalanceBalance -400 ml Exam opens eyes to verbal stimula Neck: supple Respiratory: diminished breath sounds Cardiovascular: regular rate and rhythm abdomen distended +edema Medications Medication Current Medications Ondansetron HCl (Zofran Tab) 4 mg Q6H PRN PO NAUSEA AND/OR VOMITING; Start 07/15/18 at 22:30 Scopolamine (Transderm-Scop) 1 patch Q72H TRANSDERM Last administered on 07/21/18at 15:26; Admin Dose 1 PATCH; Start 07/19/18 at 14:30 Morphine Sulfate (Roxanol) 5 mg Q3H PRN SL SEVERE PAIN LEVEL 7-10 Last administered on 07/20/18at 00:05; Admin Dose 5 MG; Start 07/19/18 at 14:30 Hydromorphone HCl (Dilaudid) 0.5 mg Q4 SC Last administered on 07/22/18at 13:00; Admin Dose 0.5 MG; Start 07/20/18 at 21:00 CARLOS ARTHUR MD July 22, 2018 16:56
[2018-07-22 21:00] VITALS: BP 162/61; PULSE 113; RESP 16
[2018-07-23] MEDS: HYDROmorphONE 0.5 MG/0.5 ML SYG SC SCH ×6 (01:07→20:52)
[2018-07-23 07:49] VITALS: BP 137/65; PULSE 120; RESP 23
[2018-07-23 08:00] VITALS: RESP 28
[2018-07-23 14:00] VITALS: BP 127/77; PULSE 70; RESP 22
--- NOTE | 2018-07-23 15:47 | PN ---
Date/Time of Note Date/Time of Note DATE: 07/23/18 TIME: 15:44 Assessment/Plan VTE Prophylaxis Risk score [place] [facility] [place] risk: 3 SCD applied (from [facility] [place] No SCD contraindicated: low risk/ambulating Pharmacological prophylaxis: NA/contraindicated Pharm contraindication: low risk/ambulating Lines/Catheters Urinary Cath still in place: Yes Reason Cath still needed: urinary retention Assessment/Plan Assessment/Plan # metastatic colon cancer, status post chemotherapy, now with probabale sepsis # Acute peritonitis. Bowel obstruction. #. Chronic kidney disease. #. History of elevated troponin. #. History of sepsis. # Coronary artery disease. #. Coronary artery bypass. # CHF # ineffective family coping Assessment/Plan - cw oxygen - daughter does want to sign any consents with hospice, does not want any SNF and does not want iv pain meds/iv as pt didnt want it , just want to honor pts last wishes, will change dilaudid sc to q3> pt probab;y becoming septic > spoke to daugther - morphine sublingual -sub q Dilaudid and Zofran. - cld per family request -comfort measure only Subjective 24 Hr Interval Summary Free Text/Dictation pt more tacypnic today fevers this am Exam/Review of Systems Exam Vitals Vital Signs Date Temp Pulse Resp B/P (MAP) Pulse Ox O2 O2 Flow FiO2 Time Delivery Rate 07/23/18 98.5 70 22 127/77 97 Nasal 14:00 (94) Cannula 07/23/18 2.0 13:11 Intake and Output 07/22/18 07/22/18 07/23/18 1515:00 23:00 07:00 IntakeIntake Total 100 ml OutputOutput Total 300 ml BalanceBalance -200 ml Exam opens eyes to verbal stimulal, tachpnic Neck: supple Respiratory: diminished breath sounds Cardiovascular: regular rate and rhythm abdomen distended +edema Medications Medication Current Medications Ondansetron HCl (Zofran Tab) 4 mg Q6H PRN PO NAUSEA AND/OR VOMITING; Start 07/15/18 at 22:30 Scopolamine (Transderm-Scop) 1 patch Q72H TRANSDERM Last administered on 07/21/18at 15:26; Admin Dose 1 PATCH; Start 07/19/18 at 14:30 Morphine Sulfate (Roxanol) 5 mg Q3H PRN SL SEVERE PAIN LEVEL 7-10 Last administered on 07/20/18at 00:05; Admin Dose 5 MG; Start 07/19/18 at 14:30 Hydromorphone HCl (Dilaudid) 0.5 mg Q4 SC Last administered on 07/23/18at 13:09; Admin Dose 0.5 MG; Start 07/20/18 at 21:00 CARLOS ARTHUR MD July 23, 2018 15:46
[2018-07-23 20:00] VITALS: BP 103/56; PULSE 108; RESP 19
[2018-07-24] MEDS: HYDROmorphONE 0.5 MG/0.5 ML SYG SC SCH ×7 (00:34→18:42)
[2018-07-24 08:07] VITALS: BP 116/53; PULSE 120; RESP 20
[2018-07-24] MEDS ORDERED: ARTIFICIAL TEARS 15 ML OPH BOTH EYES PRN (14:30)
[2018-07-24] MEDS ORDERED: DIMETHICONE STICK TOP PRN (14:30)
[2018-07-24] MEDS ORDERED: morphine LIQ (20 MG/ML PO SYG) SL PRN (14:30)
[2018-07-24] MEDS ORDERED: ALBUTEROL/IPRATROPIUM (NEB) 3 ML AMP HHN PRN (14:30)
--- NOTE | 2018-07-24 15:37 | PN ---
Date/Time of Note Date/Time of Note DATE: 07/24/18 TIME: 15:16 Assessment/Plan VTE Prophylaxis Risk score (from [facility]0 risk: 10 SCD applied (from [facility] [place] No SCD contraindicated: low risk/ambulating Pharmacological prophylaxis: NA/contraindicated Pharm contraindication: low risk/ambulating Lines/Catheters Urinary Cath still in place: Yes Reason Cath still needed: urinary retention Assessment/Plan Assessment/Plan # metastatic colon cancer, status post chemotherapy, # Acute peritonitis. Bowel obstruction. #. Chronic kidney disease. #. History of elevated troponin. #. History of sepsis. # Coronary artery disease. #. Coronary artery bypass. # CHF # ineffective family coping Assessment/Plan -Talked to the daughter over the phone Michelle, explained her about current declining condition due to possible sepsis with fevers, just comfort measures per her -she does not wish to father to be changed, she was angry over the nurse/supervisor sawing and assembly/at me .and per her wishes he is on dilaudid sub q only now again q4. - daughter does want to sign any consents with hospice, does not want any SNF and does not want iv pain meds/iv , just want to honor pts last wishes with sub q dilaudid and wishes are being honored -per daughter wishes ; pt is comfort care and DNR and we are respecting his and her wishes -sub q Dilaudid and Zofran. - cld per family request intially now > per family request - 02 for comfort, breathing treatment for comfort -comfort measure Spoke to Dr Loaiza who has been involved in the care risk management to be involved spoke to nurse, supervisor sawing and assembly at bedside , spoke to at bedside and family welfare social work professor Subjective 24 Hr Interval Summary Free Text/Dictation Patient had fever this morning eyes closed Exam/Review of Systems Exam Vitals Vital Signs Date Temp Pulse Resp B/P (MAP) Pulse Ox O2 O2 Flow FiO2 Time Delivery Rate 07/24/18 Nasal 2.0 08:30 Cannula 07/24/18 100.3 120 20 116/53 96 08:07 (74) Intake and Output 07/23/18 07/23/18 07/24/18 1515:00 23:00 07:00 IntakeIntake Total 550 ml OutputOutput Total 375 ml BalanceBalance -375 ml 550 ml Exam does not respond to questions, tachypnic Neck: supple Respiratory: diminished breath sounds Cardiovascular: regular rate and rhythm abdomen distended +edema Medications Medication Current Medications Ondansetron HCl (Zofran Tab) 4 mg Q6H PRN PO NAUSEA AND/OR VOMITING; Start at 22:30 Scopolamine (Transderm-Scop) 1 patch Q72H TRANSDERM Last administered on 07/21/18at 15:26; Admin Dose 1 PATCH; Start 07/19/18 at 14:30 Hydromorphone HCl (Dilaudid) 0.5 mg Q3 SC Last administered on 07/24/18at 12:11; Admin Dose 0.5 MG; Start 07/23/18 at 18:00 Albuterol/ Ipratropium (Duoneb) 3 ml Q4H RESP THERAPY PRN HHN SHORTNESS OF BREATH; Start 07/24/18 at 14:30 Eye Lubricant (Artificial Tears Oph) 2 drop EACH SHIFT PRN BOTH EYES DRY EYES; Start 07/24/18 at 14:30 Dimethicone (Blistex Lip Kersey) 1 applic EACH SHIFT PRN TOP DRY LIP(S); Start 07/24/18 at 14:30 CARLOS ARTHUR MD July 24, 2018 15:37
[2018-07-24 16:57] VITALS: BP 109/55; PULSE 119; RESP 36
--- NOTE | 2018-07-25 08:55 | CONS ---
Assessment/Plan Assessment/Plan Assessment/Plan (Daily) End stage colon cancer symptoms well-controlled agree do not attempt to feed patient do not attempt to push clear liquids as this may lead to aspiration and a morbid agree with current pain management with subcu delighted especially since family members insist on no IV line. IV opioid absorption is acceptable care for patients at end of life if family members insist on no IV administration. Continue with oxygen therapy as you are doing it is my opinion that patient care has been exceptional by Dr. Arthur and nursing under very difficult circumstances and supporting family members. Further it is my opinion if patient will probably tonight Consultation Date/Type/Reason Admit Date/Time July 15, 2018 at 20:59 Date/Time of Note DATE: 07/25/18 TIME: 08:44 Hx of Present Illness Reviewed medical records patient is in 80-year-old gentleman admitted with acute left temporal lobe intraparenchymal hemorrhage. Neurology was consulted on a mission orders given to control blood pressure neurochecks no anticoagulation. Patient is confused baseline history of dementia admitted with fluid and electrolyte abnormalities.. MRI was done which showed right frontal and parietal infarcts infarcts. Patient developed fevers while in the hospital he is currently being worked out treated aggressively until source has been found, chest x-ray urinalysis is been ordered. Other comorbid medical problems including hypertension, fluid and electrolyte abnormalities, baseline history of dementia.. Patient is currently being fed through NG tube. There is some family members at bedside. cannot participate Past Medical History Home Meds Active Scripts Amlodipine Besylate* (Amlodipine Besylate*) 5 Mg Tablet, 5 MG PO DAILY for 30 Days, TAB Prov:CARLOS ARTHUR MD 03/18/18 Metronidazole* (Flagyl*) 500 Mg Tablet, 500 MG PO Q8 for 4 Days, TAB Prov:CARLOS ARTHUR MD 03/18/18 [Vancomycin Oral Syringe] 50 MG/ML SOLN No Conflict Check, 125 MG PO Q6 for 6 Days Prov:CARLOS ARTHUR MD 03/18/18 Tamsulosin Hcl* (Flomax*) 0.4 Mg Capsr, 0.4 MG PO HS for 28 Days, CAP Prov:SMITH MATSON MD 05/20/15 Clopidogrel Bisulfate (Clopidogrel) 75 Mg Tab, 75 MG PO DAILY for 28 Days, TAB Prov:SMITH MATSON MD 05/20/15 Carvedilol* (Coreg*) 12.5 Mg Tab, 12.5 MG PO BID for 28 Days, TAB Prov:SMITH MATSON MD 05/20/15 Atorvastatin Calcium* (Atorvastatin Calcium*) 20 Mg Tab, 20 MG PO HS for 28 Days, TAB Prov:SMITH MATSON MD 05/20/15 Pollock-3/Dha/Epa/Fish Oil (FISH OIL EC 1,000 MG SOFTGEL) 1,000 Mg Cap, 1000 MG PO BID for 28 Days, BOT Prov:SMITH MATSON MD 05/20/15 Zolpidem Tartrate (Ambien Chuckie) 5 Mg Tab, 5 MG PO HS PRN for INSOMNIA for 14 Days, TAB Prov:SMITH MATSON MD 05/19/15 Acetaminophen* (Tylenol*) 325 Mg Tab, 650 MG PO Q4H PRN for PAIN AND OR ELEVATED TEMP for 14 Days, TAB Prov:SMITH MATSON MD 05/19/15 Insulin Glargine* (Lantus*) 100 Unit/Ml Soln, 11 UNIT SC AC BREAKFAST BEDTIME, #1 VIAL 3 Refills Prov:JESSICA MCCLENDON 12/27/13 Reported Medications Allopurinol* (Allopurinol*) 300 Mg Tablet, 300 MG PO DAILY, TAB 12/22/13 Clopidogrel Bisulfate (Clopidogrel) 75 Mg Tablet, 75 MG PO DAILY, TAB 12/22/13 Carvedilol* (Carvedilol*) 12.5 Mg Tablet, 12.5 MG PO BID, TAB 12/22/13 Docusate Sodium* (Colace*) 100 Mg Capsule, 100 MG PO BID, CAP 12/22/13 Zinc (ZINC) 50 Mg Tablet, 50 MG PO DAILY 12/22/13 Ascorbic Acid (Vitamin C) 500 Mg Tab, 1000 MG PO DAILY, TAB 12/22/13 Furosemide (Lasix) 40 Mg Tab, 40 MG PO DAILY, TAB 05/27/13 Tamsulosin Hcl* (Tamsulosin Hcl*) 0.4 Mg Cap.er.24h, 0.4 MG PO DAILY 05/27/13 Rosuvastatin Calcium* (Crestor*) 10 Mg Tablet, 10 MG PO DAILY 05/27/13 Aspirin Ec (Aspir 81) 81 Mg Tablet.dr, 81 MG PO DAILY 05/27/13 Allergies: Coded Allergies: No Known Allergies (Verified Allergy, Unknown, 05/20/15) Social History Smoking Status: Former smoker Exam/Review of Systems Exam Vitals Vital Signs Date Temp Pulse Resp B/P (MAP) Pulse Ox O2 O2 Flow FiO2 Time Delivery Rate 07/24/18 Nasal 2.0 21:23 Cannula 07/24/18 100.0 119 36 109/55 95 16:57 (73) Intake and Output 07/24/18 07/24/18 07/25/18 1515:00 23:00 07:00 IntakeIntake Total 60 ml OutputOutput Total 400 ml BalanceBalance -340 ml Constitutional: non-verbal, frail, other (agonal respirations) Head: other (pallor. cyanotic) Eyes: other ENMT: nl external ears & nose, nl lips & teeth, nl nasal mucosa & septum Neck: supple, non-tender Respiratory: diminished breath sounds, intercostal retraction, labored breathing Cardiovascular: regular rate and rhythm, nl pulses, other (Tachycardic) Gastrointestinal: other (no bowel sounds) Extremities: cyanosis, other (d clammy) Neurological: unresponsive, other (Nonresponsive to any verbal or tactile stimulation head extended mouth open eyes closed, agonal respirati, does not respond to any stimulation whatsoever, completely unresponsive, morbid appearance) WENDY OLSEN July 25, 2018 08:54
--- NOTE | 2018-07-31 20:46 | DES ---
DATE OF ADMISSION: 07/15/2018 DATE OF : 07/24/2018 HISTORY OF PRESENTING ILLNESS AND HOSPITAL COURSE: This is an 83-year-old male with a past medical h istory of colon cancer, on chemotherapy; history of CKD; diverticulitis; multiple hospitalizations an d coronary artery bypass; coronary artery disease; systolic heart failure, EF of 30%; multiple admiss ions in the past in [facility], admitted to [facility] on 07/11/2018 secondary to severe abd ominal pain. The patient had been followed by Oncology as an outpatient and was receiving chemothera py. Had CT of the abdomen and pelvis that showed there at [facility] bowel perforation, bilateral in guinal hernia, umbilical hernia, and epigastric midline hernia with left colonic diverticulitis. The patient was found to have acute bowel obstruction. The patient was seen by Surgery, consult by Dr. Tapia who considered not a surgical candidate due to comorbidities. Case was discussed with the lacie castano and the daughter, Allison. It was decided with the family and the patient to be a DNR since th e patient was transferred to [facility] due to insurance reasons. According to the patient's daughter, who had known his father, he had expressed his wishes not to be on any IV pain m edications and patient was already started on clear liquid diet there. When the patient was transfer red from [facility], the patient was receiving subcutaneous Dilaudid every 4 hours around th e clock. The case was discussed again with the daughter, Allison, who wanted to keep her father co mfortable. However, palliative care consultation was also requested with Dr. Olsen. Initially th e patient was a clear liquid diet; however, the patient was becoming more and more altered every day. The patient also started having some fevers. Multiple discussions were made with her daughter, Kenna banerjee, over the phone; however, she had requested not the patient to be on any IV pain medicines or a drip since it was his last wishes and the patient was continued on oxygen therapy. supervisor special services were also called and to be on the case. The patient's daughter did not want the patient to be on ho spice and as they wanted to honor his last wishes and wanted him to keep her in the hospital; however , they did not want to sign any consents with inpatient hospice. The patient was stable and was pass ing comfortably. Finally, the patient on 07/24/2018. FINAL DISCHARGE DIAGNOSES: 1. Cardiopulmonary arrest. 2. End-stage colon cancer with metastasis. 3. Perforation with obstruction. 4. Sepsis. 5. Peritonitis. 6. Chronic kidney disease. 7. History of coronary artery disease. 8. Coronary artery bypass. 9. Chronic heart failure. Dictated By: CARLOS KIRKLAND/MELVI Conf#: [id number] DID#: [id number] CC: SMITH MATSON MD; WENDY OLSEN MD;*EndCC*
== END 2018-07-24 23:45 | disposition expired | DRG 374 ==
LOC: 5EC 20:59
PROVIDERS: ADMIT Internal Medicine Nephrology; ATTEND Internal Medicine Nephrology
DX: C18.9 Malignant neoplasm of colon, unspecified (principal); A41.9 Sepsis, unspecified organism; K65.0 Generalized (acute) peritonitis; K63.1 Perforation of intestine (nontraumatic); C79.9 Secondary malignant neoplasm of unspecified site; I50.22 Chronic systolic (congestive) heart failure; I13.0 Hypertensive heart and chronic kidney disease with heart failure and stage 1 through stage 4 chronic kidney disease, or unspecified chronic kidney disease; Z79.899 Other long term (current) drug therapy; N18.9 Chronic kidney disease, unspecified; I25.10 Atherosclerotic heart disease of native coronary artery without angina pectoris; Z95.1 Presence of aortocoronary bypass graft; Z66 Do not resuscitate; I46.9 Cardiac arrest, cause unspecified; F03.90 Unspecified dementia, unspecified severity, without behavioral disturbance, psychotic disturbance, mood disturbance, and anxiety
CPT/HCPCS: 87081; 92610; J1170